=== PATIENT | male | born 1950 | race Caucasian/White ===

== ENCOUNTER 2018-11-19 10:09 | Emergency (ER) | payer MEDICARE, SELFPAY ==
[2018-11-19 10:11] VITALS: BP 146/89; PULSE 91; RESP 17; TEMP 36.7; O2SAT 95; BMI 38.5
[2018-11-19] MEDS: Diphth,Pertuss(Acell),Tet Vac 0.5 ML Vial IM (10:45)
--- NOTE | 2018-11-19 10:57 | ED.VISSUMM ---
- ER Visit Summary Date of Service: 11/19/18 Chief Complaint: Hand laceration History of Present Illness: The patient is a 68 M who presents with with a laceration to his left hand that occurred today. Patient states he was using a cutting wheel when it kicked back and cut his left hand in the first webspace. Patient states his last tetanus was more than 10 years ago. Patient admits to a mild burning over the area. Patient denies any paresthesias or weakness. Patient denies any other injuries. Physical Examination: Vital signs are stable. Patient is afebrile. Patient is in no acute distress. Skin is warm and dry. There is a 2.5 cm curvilinear laceration over the webspace of the first digit near the distal first metacarpal. There is moderate gapping of the wound margins. There are no foreign bodies noted. There is mild bleeding noted. Strength is 5/5 in flexion and extension of the MP and IP joints of the thumb as well as the MP, PIP, and DIP joints of the index finger. There are no sensory deficits noted. Capillary refill is less than 2 seconds in all digits. Emergency Department Course and Treatment: Patient was given a tetanus booster. The wound was cleaned and irrigated with copious amounts of normal saline. The wound was anesthetized 1% plain lidocaine locally. The wound was closed with 5 simple interrupted #4-0 nylon sutures under sterile technique. Bacitracin dressing was applied. Patient tolerated procedure well. Patient was instructed to follow-up with his primary care physician in 5 to 7 days for wound recheck and suture removal. Patient understood and was agreeable with the plan. All questions were answered. Disposition: Discharge home Impression: Left hand laceration This note was generated with [employer] dictation software. It may contain incorrect words, spelling, and punctuation that were not noted in review of the chart prior to signing ED Disposition - Plan for ED Patient: Disposition: Home or Assisted Living Diagnosis: Laceration of left hand Instructions: LACERATION, Extrem (Suture, Staple or Tape) Referrals: Scotty Spaulding MD [Primary Care Provider] - 7 Days for suture removal
== END 2018-11-19 11:13 | disposition home or self-care (01) ==
PROVIDERS: Emergency Provider Emergency Medicine; Family Provider Family Medicine; PCP Family Medicine
DX: S61.412A Laceration without foreign body of left hand, initial encounter (principal); W26.8XXA Contact with other sharp object(s), not elsewhere classified, initial encounter; Y93.89 Activity, other specified; I10 Essential (primary) hypertension; K21.9 Gastro-esophageal reflux disease without esophagitis; N40.0 Benign prostatic hyperplasia without lower urinary tract symptoms; M19.90 Unspecified osteoarthritis, unspecified site; Z79.899 Other long term (current) drug therapy
CPT/HCPCS: 12001; 90471; 90715; 99284; A4216

== ENCOUNTER 2018-11-28 11:34 | Emergency (ER) | payer MEDICARE, SELFPAY ==
[2018-11-28 11:35] VITALS: BP 136/78; PULSE 97; RESP 20; TEMP 36.6; O2SAT 97; BMI 38.5
--- NOTE | 2018-11-28 12:50 | ED.DCSUM_ITS ---
History of Present Illness Chief Complaint: Laceration Informant: Patient Onset: Today Current Severity: Mild Narrative: Laceration involving the left elbow region that occurred when he brushed up against a piece of metal, he has no numbness weakness paresthesias or loss of function his tetanus status is up-to-date he had a recent laceration a week ago involving the left hand region is healing well no other complaints Past Medical History - Allergies and Home Meds Allergies/Adverse Reactions: Allergies iodine Allergy (Verified 11/28/18 11:37) Anaphylaxis aspirin Adverse Reaction (Verified 11/28/18 11:37) Nausea/Vom/Diarrhea PEES BLOOD Primary Care Physician: Scotty Spaulding MD [Primary Care Provider] - Past Medical History: - Smoking Status: Never smoker Review of Systems ROS: - Unremarkable except as above General: Reports: - - The laceration to the left elbow region only. Denies: Chills, Fever, Sweats Eyes: Denies: Visual changes - bilaterally, Diplopia ENT: Denies: Rhinorrhea, Sore throat Cardiovascular: Denies: Chest pain, Palpitations Respiratory: Denies: Dyspnea, Cough, Dyspnea on exertion Gastrointestinal: Denies: Abdominal pain, Nausea, Vomiting, Diarrhea, Melena, Hematochezia Genitourinary: Denies: Dysuria, Hematuria, Frequency Musculoskeletal: Denies: Back pain, Extremity Pain Skin: Denies: Rash, Wounds Neurological: Denies: Headache, Weakness, Numbness Physical Exam Vital Signs/Narrative: Vital Signs Temp Pulse Resp BP Pulse Ox 11/28/18 11:35 98 F 97 20 H 136/78 H 97 General: Well nourished, Well developed, No Acute Distress Head: Normocephalic, Atraumatic Eyes: Perrl, EOMI ENT: Moist mucous membranes, No rhinorrhea Neck: Supple, Nontender Cardiovascular: Regular rate, Regular rhythm, No murmurs Respiratory: No distress, CTA bilaterally, Chest nontender Abdomen: Soft, Nontender, Nondistended, Normal bowel sounds Back: Nontender, Normal Inspection Extremities: Nontender, No edema, - - He has a very linear laceration over the lateral surface left elbow region, he has full range of motion of the elbow to flexion extension pronation supination the distal wrist and hand exam upper extremity exam shoulder exam unremarkable the wound margins here are very well approximated there is no signs of foreign body the patient denies any poss ibility of foreign body, we discussed obtaining an x-ray and he declined that we discussed wound care closure options he agreed with medical glue the area was sterilely prepped and closed with medical glue with good results he was instructed on wound care Skin: Normal color, No rash Neurological: Alert, Oriented x3, Cranial nerves II-XII grossly intact, Normal Strength, Normal Sensation Psychological: Normal affect, Normal Mood Diagnostic/Tx/Re-eval - Medical Decision Making See the above, Home stable Final impression 3 cm left elbow region laceration closed with medical glue ED Disposition - Plan for ED Patient: Diagnosis: Laceration Instructions: LACERATION, Extremity (Skin Glue) Referrals: Scotty Spaulding MD [Primary Care Provider] -
== END 2018-11-28 13:01 | disposition home or self-care (01) ==
LOC: ED 12:15
PROVIDERS: Emergency Provider Emergency Medicine; Family Provider Family Medicine; PCP Family Medicine
DX: S51.012A Laceration without foreign body of left elbow, initial encounter (principal); W26.8XXA Contact with other sharp object(s), not elsewhere classified, initial encounter; Y93.9 Activity, unspecified; Y92.9 Unspecified place or not applicable
CPT/HCPCS: 12002; 99282

== ENCOUNTER → 2019-01-01 07:42 | Outpatient (CLI) | payer MEDICARE, SELFPAY ==
--- NOTE | 2019-01-01 10:01 | NEURO_ITS ---
NCS and/or EMG Patient Report Ordering Doctor: Scotty Spaulding DATE OF SERVICE: 01/01/19 This is a left upper extremity nerve conduction study performed on this 68-year-old male with a history of numbness in both hands for 1 year. The patient is healthy without a history of diabetes. Left upper extremity sensory motor nerve conduction studies performed demonstrating severe prolongation of the median motor distal latency with mild reduction of amplitude and moderate to severe reduction of conduction velocity. The median sensory response is absent. The ulnar motor and sensory and radial sensory response is normal. The median F wave latency is prolonged. Impression: Abnormal nerve conduction study of left upper extremity consistent with severe carpal tunnel syndrome. Dictated using [employer] software, not proofread
== END ==
PROVIDERS: Family Provider Family Medicine; PCP Family Medicine; Referring Provider Family Medicine; Visit Provider Family Medicine
DX: R20.0 Anesthesia of skin (principal)
CPT/HCPCS: 95909

== ENCOUNTER 2019-11-20 14:24 | Inpatient (IN) | payer MEDICARE, SELFPAY ==
[2019-11-20] VITALS (7 sets, daily range): BP systolic 130–157; BP diastolic 80–97; PULSE 93–110; RESP 16–26; TEMP 37.4–37.8; O2SAT 94–97; BMI 41.7; BMI 45.3
--- NOTE | 2019-11-20 15:47 | RAD_ITS ---
STUDY: X-RAY CHEST REASON FOR EXAM: Male, 69 years old. Fatigue. Shortness of breath. Fever. TECHNIQUE: Single AP portable view of the chest. COMPARISON: 05/16/2014. FINDINGS: The lungs are hypoexpanded. There is minimal linear atelectasis at the right lung base. There is no demonstrated pleural abnormality. Normal size heart. Normal mediastinum and nadeem. Normal visualized pulmonary arteries. Normal visualized aortic arch and descending thoracic aorta. There are diffuse degenerative changes of the visualized thoracic spine. There is degenerative osteoarthritis of the bilateral shoulders. There is no demonstrated abnormality of the visualized soft tissue structures of the upper abdomen. RAD/Chest 1 View (Portable) IMPRESSION: No major interval change when compared to the prior study. Electronically Signed: Markell Robles DO at 17:04 EDT Tel [phone], Service support ,
--- NOTE | 2019-11-20 15:47 | EKG12_ITS ---
Test Reason : Blood Pressure : / mmHG Vent. Rate : 107 BPM Atrial Rate : 107 BPM P-R Int : 184 ms QRS Dur : 092 ms QT Int : 326 ms P-R-T Axes : 047 -25 059 degrees QTc Int : 435 ms Sinus tachycardia with occasional Premature ventricular complexes Otherwise normal ECG Confirmed by ADAMS GRANADOS, MARIE ([id number]), script editor HARESH CHARLTON ([id number]) on 11/28/2019 11:10:45 A M Referred By: SHAWN Confirmed By:TOD LAMAS MD
--- NOTE | 2019-11-20 16:07 | ED.DCSUM_ITS ---
History of Present Illness Chief Complaint: Shortness of Breath Informant: Patient, Family Narrative: Patient is a 69-year-old male who presents to the ED for generalized weakness and a shaky feeling. His symptoms started yesterday. Denies having this happen before in the past. He did initially have some shortness of breath yesterday but this has since resolved. He also had some right-sided neck pain which also completely resolved. His only complaint that is currently persisting at this time is some urinary frequency. He does have a history of UTIs before in the past. States he does have a history of BPH. He does follow with a urologist. He denies any recent antibiotic use. Denies any vomiting or any diarrhea. He has not had any chest pain throughout this. He denies any cough, cold, congestion. No known sick contacts. He states that he has had some intermittent fevers that have been subjective. He does not describe his shakiness as chills currently. Just feels generally weak. No headache or vision changes. No history of heart attacks or strokes. He does have bilateral peripheral edema which is at its baseline. Past Medical History - Allergies and Home Meds Allergies/Adverse Reactions: Allergies iodine Allergy (Verified 11/20/19 14:25) Anaphylaxis aspirin Adverse Reaction (Verified 11/20/19 14:25) Nausea/Vom/Diarrhea PEES BLOOD Prior records reviewed: Yes Past Medical History: - - Diabetes, hypertension Smoking Status: Never smoker - Family History Maternal Family History: Reports: No pertinent history Paternal Family History: Reports: No pertinent history Review of Systems All systems negative except as indicated General: Reports: Fever, Malaise, Sweats Eyes: Denies: Visual changes - bilaterally, Diplopia ENT: Denies: Rhinorrhea, Sore throat Cardiovascular: Denies: Chest pain, Palpitations Respiratory: Denies: Dyspnea, Cough, Dyspnea on exertion Gastrointestinal: Denies: Abdominal pain, Nausea, Vomiting, Diarrhea, Melena, Hematochezia Genitourinary: Reports: Dysuria, Frequency. Denies: Hematuria Musculoskeletal: Denies: Back pain, Extremity Pain Skin: Denies: Rash, Wounds Neurological: Denies: Headache, Weakness, Numbness Physical Exam Vital Signs/Narrative: Vital Signs Temp Pulse Resp BP Pulse Ox 11/20/19 14:25 100.1 F H 110 H 18 157/97 H 94 Inital Vital Signs reviewed: Yes General: Well nourished, Well developed, No Acute Distress Head: Normocephalic, Atraumatic Eyes: Perrl, EOMI ENT: Moist mucous membranes, No rhinorrhea Neck: Supple, Nontender Cardiovascular: Regular rhythm, No murmurs, Tachycardia Respiratory: No distress, CTA bilaterally, Chest nontender Abdomen: Soft, Nontender, Nondistended, Normal bowel sounds Back: Nontender, Normal Inspection. Negative for: CVA tenderness Extremities: Nontender, Edema - 2+ pitting edema bilaterally. Negative for: Niko f Tenderness Skin: Normal color, No rash Neurological: Alert, Oriented x3, Cranial nerves II-XII grossly intact, Normal Strength, Normal Sensation Psychological: Normal affect, Normal Mood Diagnostic/Tx/Re-eval - EKG Initial EKG Interpretation: - - Rate of 107 bpm in sinus tachycardia. Normal intervals. Left axis deviation. No ST elevations or depressions appreciated. PVCs present. No T wave abnormalities. - Medical Decision Making Patient presents to the ED for generalized weakness, shakiness. On arrival to the ED has low-grade fever. He is mildly tachycardic. Only infectious symptom at this time is complaining of some dysuria and urinary frequency. Basic lab work being obtained. Started on IV fluids and given Tylenol. He does have elevated white blood cell count. With the tachycardia and low- grade fever we will treat him as sepsis. Will be cautious with IV fluids though given the fact he has CHF. He is started on Rocephin. Blood cultures and urine culture are sent. Will bring to the hospital for further evaluation and management. He otherwise has been stable throughout ED stay. He understands and is agreeable with this plan. ED Disposition - Plan for ED Patient: Disposition: Acute Care Hospital [facility] Diagnosis: Sepsis, Urinary tract infection
[2019-11-20 16:20] LABS: Absolute Lymphocyte Count 1.04 X10^3/uL (0.83-4.51); Absolute Neutrophil Count 14.8 X10^3/uL (2.0-7.7); Basophil# 0.05 X10^3/uL; Basophil% 0.3 % (0-1); Hematocrit 46.2 % (40-54); Lymphocyte # 1.04 X10^3/ul (4.0); Mean Corp Hgb Conc 34.6 g/dL (32-36); Mean Corpuscular Hgb 31.2 pg (27.0-32.0); Mean Corpuscular Volume 90.1 fL (80-94); Mean Platelet Vol. 9.9 fl (6.2-12.0); Monocyte# 1.19 X10^3/uL; Monocyte% 6.9 % (0-10); NRBC Flagged by Analyzer 0 % (0-5); Neutrophil # 14.82 X10^3/uL (2.7-7.7); Neutrophil % 86.2 % (47-70); Platelet Count 215 K/mm3 (150-450); RBC Distribution Width CV 12.1 % (11.6-14.6); RBC Distribution Width SD 39.6 fl (35.1-43.9); Red Blood Count 5.13 M/mm3 (4.6-6.2); White Blood Count 17.2 K/mm3 (4.4-11.0)
[2019-11-20] MEDS: Acetaminophen 325 MG Tablet 650 MG PO ×2 (16:32→22:51)
[2019-11-20 16:33] LABS: Anion Gap 7 (5-15); BUN 14 mg/dL (7-18); Chloride 101 mmol/L (98-107); Creatinine, Serum 1.17 mg/dL (0.70-1.30); EST Glomerular Filtration Rate 65 mL/min (>60); Est Glom Filt Rate - Afr Amer 79 mL/min (>60); Estimated Creatinine Clearance 67.33 ml/min; Glucose 255 mg/dL (74-106); Magnesium 1.9 mg/dL (1.6-2.6); Potassium 3.3 mmol/L (3.5-5.1); Sodium Level 137 mmol/L (136-145)
[2019-11-20 16:36] LABS: Bacteria 0 SEEN /hpf (None Seen); Mucous, Urine 0 SEEN /hpf (<or=2+)
[2019-11-20 16:43] LABS: Color, Urine Yellow (Yellow); Glucose, Dipstick 250 mg/dl (Normal); Ketone-Dipstick 15 mg/dl (Negative); Leukocyte Esterase-Dipstick 500 /ul (Negative); Nitrite-Dipstick Negative (Negative); Occult Blood-Urine 250 /ul (Negative); Protein-Dipstick 100 mg/dl (Negative); Specific Gravity, Urine 1.015 (1.002-1.030); Urine Bilirubin Dipstick Negative (Negative); Urine Clarity Cloudy (Clear); Urine Urobilinogen 1 mg/dl (Normal)
[2019-11-20 16:57] LABS: Lactic Acid 2.5 mmol/L (0.4-1.9)
[2019-11-20 16:58] LABS: Red Blood Cells-Urine 50-100 SEEN /hpf (0-5); Squamous Epithelial Cells - UA 0-5 SEEN /hpf (0-5); White Blood Cells >100 SEEN /hpf (0-5)
[2019-11-20 16:59] LABS: Amorphous Sediment 1+ URATE
--- NOTE | 2019-11-20 17:36 | HP.PCM_ITS ---
Problem List (1) Type 2 diabetes mellitus Status: Chronic (2) Hypertension Status: Chronic (3) Benign prostatic hyperplasia Status: Chronic (4) Sepsis Status: Acute (5) Urinary tract infection Status: Acute History of Present Illness Date of Admission: 11/20/19 Chief Complaint: Fever, weakness, chills. The patient is a 69 year old M with past medical history as mentioned above presented to the emergency room because of fever, chills and weakness. Symptoms started yesterday with mainly chills, subjective fever, associated with profound weakness and without other associated symptoms. Patient reported intermittent back pain but that has been chronic and going on for some time. He reported associated frequency, no dysuria. He denied chest pain or shortness of breath. He denied cough, sputum production, sore throat, sinus nasal congestion. He had a history of type 2 diabetes mellitus that was diagnosed recently and currently he is on oral hypoglycemic drugs. He rested hypertension which has been under control with Norvasc. He has history of benign prostatic hypertrophy and he is not sure what medication he is on. In the emergency department, patient had a spike of low-grade fever, was tachycardic, tachypneic, blood pressure slightly elevated, pulse ox was 96% on room air. Routine blood work was remarkable for leukocytosis, potassium 3.3, lactic acid was 2.5. EKG revealed sinus tachycardia with PVCs. Troponin was negative. Urinalysis revealed cloudy urine, negative for nitrite, there was 500 leukocyte esterase, there was more than 100 WBCs and no bacteria seen. Chest x-ray showed no acute infiltrate or consolidation. He is being admitted for sepsis due to acute cystitis. Past Medical History Past Medical History (Chronic Problems): Chronic Problems Type 2 diabetes mellitus (Chronic) Hypertension (Chronic) Benign prostatic hyperplasia (Chronic) Allergies iodine Allergy (Verified 11/20/19 14:25) Anaphylaxis aspirin Adverse Reaction (Verified 11/20/19 14:25) Nausea/Vom/Diarrhea PEES BLOOD Home Medications: Ambulatory Orders Medication Instructions Recorded Cholecalciferol (VIT D3) [Vitamin 2,000 unit PO DAILY 04/19/14 D3] Potassium Chloride [K-Dur] 40 meq PO BID 04/19/14 Amlodipine [Norvasc] 10 mg PO DAILY 11/20/19 Cyclobenzaprine HCl 5 mg PO Q8 11/20/19 Gabapentin [Neurontin] 300 mg PO BID 11/20/19 Hydrochlorothiazide [Hctz] 25 mg PO DAILY 11/20/19 Oxycodone HCl/Acetaminophen 1 tab PO BID PRN 11/20/19 [Percocet 5/325] Pantoprazole Sodium [Protonix] 40 mg PO DAILY 11/20/19 Surgical History: appendectomy, total knee arthroplasty Psychiatric History: No pertinent psych hx Lives: Spouse/ Significant Other Smoking Status: Never smoker Alcohol: None Drugs: None - *Family History Maternal History Items: No pertinent history Paternal History Items: No pertinent history Review of Systems Constitutional: Reports: Anorexia, Chills, Fever, Weakness Eyes: Denies: Blurred vision, Double vision, Drainage, Redness HEENT: Denies: Difficulty Hearing, Ear Pain, Nasal Congestion, Sore Throat Cardiovascular: Denies: Chest Pain, Chest Pressure, Chest Tightness, Edema, Heaviness, Light Headedness, Palpitations, Syncope Respiratory: Denies: Cough, Pleuritic Pain, Shortness of Breath, Sputum production, Wheezing Gastrointestinal: Denies: Abdominal Pain, Constipation, Diarrhea, Nausea, Vomiting Genitourinary: Reports: Frequency, Urgency. Denies: Dysuria, Hematuria Musculoskeletal: Reports: Back Pain. Denies: Arm Pain, Foot Pain Skin: Denies: Dryness, Rash Neurological: Denies: Balance problems, Double vision, Change in Speech, Slurred speech, Confusion, Headaches, Incoordination, Numbness Psychiatric: Denies: Anxiety, Depression Endocrine: Denies: Change in Body Habitus, Polydipsia, Polyuria VTE Information - Inpt Only VTE Present on Admission: No VTE Mechan Device Prophylaxis: None VTE Pharm Prophylaxis ordered?: Yes Patient Problems: Active and Suspected Problems Sepsis (Acute) Urinary tract infection (Acute) - Physical Exam Vitals/I&O's: Vital Signs Temp Pulse Resp BP Pulse Ox 99.4 F H 104 H 19 H 135/88 H 96 11/20/19 17:32 11/20/19 17:32 11/20/19 17:32 11/20/19 17:32 11/20/19 17:32 Oxygen Delivery Method Room Air Weight: 325 lb Body Mass Index (BMI) 41.7 General: Alert, Oriented x3, Cooperative, No apparent distress HEENT: Atraumatic, PERRLA, EOMI, Normocephalic Oral: Moist Mucosa, No Gingival or Mucosal Lesions/ Ulcerations Neck: Supple, No JVD, Negative Carotid Bruits, Trachea Midline, Thyroid Normal Size and Texture Lungs: Clear to auscultation, Normal air movement, No rhonchi, No wheeze, No rales, Diminished Cardiovascular: Regular rate, Regular Rhythm, Normal S1, Normal S2, PMI Normal, Tachycardic Abdomen: Bowel Sounds Present, Soft, Non Tender, Non-Distended, No Hepato- splenomegaly, Obese Extremities: No clubbing, No cyanosis, Edema Skin: No rashes, No breakdown Lymphatic: No Cervical, Supraclavicular, or Inguinal Adenopathy Neurological: Cranial nerves II-XII grossly intact, Motor Exam 5/5 strength throughout Psych/Mental Status: Normal Affect, Appropriate, Alert and oriented to time, place, person, mood and affect Laboratory Results 11/20/19 16:05: WBC 17.2 H, RBC 5.13, Hgb 16.0, Hct 46.2, MCV 90.1, MCH 31.2, MCHC 34.6, RDW Std Deviation 39.6, RDW Coeff of Tish 12.1, Plt Count 215, MPV 9.9, Immature Gran % (Auto) 0.600, Neut % (Auto) 86.2 H, Lymph % (Auto) 6.0 L, [place] % (Auto) 6.9, Eos % (Auto) 0.0, Baso % (Auto) 0.3, Absolute Neuts (auto) 14.8 H, Absolute Lymphs (auto) 1.04, Nucleated RBC % 0 11/20/19 16:05: Sodium 137, Potassium 3.3 L, Chloride 101, Carbon Dioxide 29.0, Anion Gap 7, BUN 14, Creatinine 1.17, Estim Creat Clear Calc 67.33, Est GFR (MDRD) Af Amer 79, Est GFR (MDRD) Non-Af 65, BUN/Creatinine Ratio 12.0, Glucose 255 H, Calcium 9.0, Magnesium 1.9, Troponin I < 0.015 11/20/19 16:05: Lactic Acid 2.5 H* 11/20/19 16:10: Urine Color Yellow, Urine Clarity Cloudy, Urine pH 6.0, Ur Specific [place] 1.015, Urine Protein 100 H, Urine Glucose (UA) 250 H, Urine Ketones 15 H, Urine Occult Blood 250 H, Urine Nitrite Negative, Urine Bilirubin Negative, Urine Urobilinogen 1 H, Ur Leukocyte Esterase 500 H, Urine RBC 50-100 SEEN, Urine WBC >100 SEEN, Ur Squamous Epith Cells 0-5 SEEN, Amorphous Sediment 1+ URATE, Urine Bacteria 0 SEEN, Urine Mucus 0 SEEN Clinical Impression(s) from Imaging Studies Chest X-Ray 11/20/19 15:47 IMPRESSION: No major interval change when compared to the prior study. Electronically Signed: Markell RoblesDO at 17:04 EDT Tel [phone], Service support , Current Medications Sodium Chloride () 500 mls @ 999 mls/hr IV .Q31M KINZA Stop: 11/20/19 17:45 Last Admin: 11/20/19 17:28 Dose: 999 mls/hr Documented by: Assessment/Plan All Active Problems Sepsis (Acute) Urinary tract infection (Acute) This is a 69 years old male patient presented to the emergency room because of fever, chills and weakness as well as frequency, found to have sepsis secondary to acute cystitis and he is being admitted for treatment. #1 sepsis/acute cystitis: Urine is reviewed. Patient is having low-grade fever, tachycardic, blood pressure stable. Lactic acid was elevated. [facility], IV fluids, blood culture, urine culture, start IV Rocephin, Tylenol PRN, Zofran PRN, repeat CBC and BMP tomorrow morning, PT OT evaluation and treatment. #2 hypokalemia: It is probably due to HCTZ. Plan to replace potassium with p.o. potassium chloride, repeat BMP tomorrow morning. #3 hypertension: Blood pressure stable, continue Norvasc, HCTZ. #4 benign prostatic hypertrophy: Patient did mention that he has prostatic enlargement. He is not on any medication. #5 type 2 diabetes mellitus: Recent diagnosis according to the patient's . Blood sugar is 255 mg/dL upon admission. Plan: Accu-Cheks, insulin sliding scale, check hemoglobin A1c, continue home medications when home medications updated. #6 DVT prophylaxis: Subcu Lovenox. This note was generated with [employer] dictation software. It may contain incorrect words, spelling, and punctuation that were not noted in checking the note before signing. Inpatient E&M: 99041 Init Hosp L3
--- NOTE | 2019-11-20 17:45 | NURSING ---
316 ACUTE CYSTITIS, SEPSIS ASHELFAH
[2019-11-20 19:08] LABS: Hemoglobin A1c 9.5 % (3.8-5.6)
[2019-11-20] MEDS: 0.9% Normal Saline 1,000 ML 100 ML IV (19:19)
[2019-11-20 20:10] LABS: Reflex Lactate? Y
[2019-11-20] MEDS: oxyCODONE 5 MG Tablet PO (20:15)
[2019-11-20] MEDS: cycloBENZAPRine HCl 5 MG TABLET PO (22:52)
[2019-11-20] MEDS: Insulin Lispro 100 UNIT/ML INSULN.PEN SC (23:00)
[2019-11-20 23:01] LABS: Bedside Glucose 367 mg/dL (70-110)
[2019-11-20] MEDS: Nystatin Powder 15gm Bottle 1 APPLIC TOPICAL (23:15)
[2019-11-21] VITALS (13 sets, daily range): BP systolic 139–153; BP diastolic 80–96; PULSE 89–103; RESP 16–18; TEMP 36.6–37.3; O2SAT 88–97
[2019-11-21] MEDS: 0.9% Normal Saline 1,000 ML 100 ML IV ×2 (04:48→15:15)
[2019-11-21] MEDS: Acetaminophen 325 MG Tablet 650 MG PO (04:48)
[2019-11-21] MEDS: cycloBENZAPRine HCl 5 MG TABLET PO ×3 (04:49→22:44)
[2019-11-21 06:32] LABS: Absolute Lymphocyte Count 1.08 X10^3/uL (0.83-4.51); Absolute Neutrophil Count 12.3 X10^3/uL (2.0-7.7); Basophil# 0.04 X10^3/uL; Basophil% 0.3 % (0-1); Eosinophil# 0.02 X10^3/uL; Eosinophils% 0.1 % (0-5); Hematocrit 42.8 % (40-54); Hemoglobin 14.2 g/dL (13.0-16.5); Lymphocyte # 1.08 X10^3/ul (4.0); Lymphocyte % 7.6 % (19-41); Mean Corp Hgb Conc 33.2 g/dL (32-36); Mean Corpuscular Hgb 30.4 pg (27.0-32.0); Mean Corpuscular Volume 91.6 fL (80-94); Mean Platelet Vol. 9.8 fl (6.2-12.0); Monocyte# 0.79 X10^3/uL; Monocyte% 5.5 % (0-10); NRBC Flagged by Analyzer 0 % (0-5); Neutrophil # 12.27 X10^3/uL (2.7-7.7); Platelet Count 182 K/mm3 (150-450); RBC Distribution Width CV 12.5 % (11.6-14.6); RBC Distribution Width SD 41.2 fl (35.1-43.9); Red Blood Count 4.67 M/mm3 (4.6-6.2); White Blood Count 14.3 K/mm3 (4.4-11.0)
[2019-11-21] MEDS: Insulin Lispro 100 UNIT/ML INSULN.PEN SC ×4 (06:39→22:47)
[2019-11-21 06:55] LABS: Anion Gap 5 (5-15); BUN 10 mg/dL (7-18); BUN/Creat Ratio 10.6 RATIO (10-20); Calcium,Total 8.2 mg/dL (8.5-10.1); Chloride 102 mmol/L (98-107); Creatinine, Serum 0.94 mg/dL (0.70-1.30); EST Glomerular Filtration Rate 84 mL/min (>60); Est Glom Filt Rate - Afr Amer 101 mL/min (>60); Glucose 206 mg/dL (74-106); Potassium 3.2 mmol/L (3.5-5.1); Sodium Level 134 mmol/L (136-145)
[2019-11-21 06:59] LABS: Lactic Acid 1.4 mmol/L (0.4-1.9)
[2019-11-21 07:00] LABS: Bedside Glucose 206 mg/dL (70-110)
[2019-11-21] MEDS: Gabapentin 300 MG Capsule PO ×2 (08:55→16:12)
[2019-11-21] MEDS: amLODIPine 10 MG Tablet PO (08:55)
[2019-11-21] MEDS: hydroCHLOROthiazide 25 MG Tablet PO (08:55)
[2019-11-21] MEDS: Enoxaparin 40 MG/0.4 ML Syringe SC (08:55)
[2019-11-21] MEDS: Pantoprazole Sodium 40 MG Tablet PO (08:55)
[2019-11-21] MEDS: Glucerna Shake 120 ML LIQUID PO ×3 (08:57→16:13)
--- NOTE | 2019-11-21 10:18 | PCM.PN.HOSP ---
Patient Problems: Active and Suspected Problems Sepsis (Acute) Urinary tract infection (Acute) Subjective: Doing well, no issues overnight. Feels better than when he came in. Vitals/I&O's: Vital Signs Temp Pulse Resp BP Pulse Ox 99.1 F 94 16 139/88 H 97 11/21/19 07:57 11/21/19 08:31 11/21/19 07:57 11/21/19 07:57 11/21/19 07:57 Oxygen Delivery Method Room Air Weight: 352 lb 11.834 oz Body Mass Index (BMI) 45.3 Intake and Output for Last 24 Hours 11/19/19 11/20/19 11/21/19 23:59 23:59 23:59 Intake Total 1850 / 1850 2183.33 / 2183.33 Output Total 300 / 300 500 / 500 Balance 1550 / 1550 1683.33 / 1683.33 General: Alert, Oriented x3, Cooperative, No apparent distress HEENT: Atraumatic, PERRLA, EOMI, Normocephalic Oral: Moist Mucosa Neck: Supple, No JVD Lungs: Clear to auscultation, Normal air movement, No rhonchi, No wheeze, No rales, Diminished Cardiovascular: Regular rate, Regular Rhythm, Normal S1, Normal S2, No murmurs Abdomen: Soft, Non Tender, Non-Distended, No Hepato-splenomegaly Extremities: No edema, Capillary Refill Less than 3 Seconds Skin: No rashes, No breakdown Neurological: Neuro grossly intact, Sensory exam intact to light touch and pain Psych/Mental Status: Normal Affect, Appropriate Laboratory Results 11/20/19 16:05: WBC 17.2 H, RBC 5.13, Hgb 16.0, Hct 46.2, MCV 90.1, MCH 31.2, MCHC 34.6, RDW Std Deviation 39.6, RDW Coeff of Tish 12.1, Plt Count 215, MPV 9.9, Immature Gran % (Auto) 0.600, Neut % (Auto) 86.2 H, Lymph % (Auto) 6.0 L, Stearns % (Auto) 6.9, Eos % (Auto) 0.0, Baso % (Auto) 0.3, Absolute Neuts (auto) 14.8 H, Absolute Lymphs (auto) 1.04, Nucleated RBC % 0 11/20/19 16:05: Sodium 137, Potassium 3.3 L, Chloride 101, Carbon Dioxide 29.0, Anion Gap 7, BUN 14, Creatinine 1.17, Estim Creat Clear Calc 67.33, Est GFR (MDRD) Af Amer 79, Est GFR (MDRD) Non-Af 65, BUN/Creatinine Ratio 12.0, Glucose 255 H, Calcium 9.0, Magnesium 1.9, Troponin I < 0.015 11/20/19 16:05: Lactic Acid 2.5 H* 11/20/19 16:05: Hemoglobin A1c 9.5 H 11/20/19 16:10: Urine Color Yellow, Urine Clarity Cloudy, Urine pH 6.0, Ur Specific [place] 1.015, Urine Protein 100 H, Urine Glucose (UA) 250 H, Urine Ketones 15 H, Urine Occult Blood 250 H, Urine Nitrite Negative, Urine Bilirubin Negative, Urine Urobilinogen 1 H, Ur Leukocyte Esterase 500 H, Urine RBC 50-100 SEEN, Urine WBC >100 SEEN, Ur Squamous Epith Cells 0-5 SEEN, Amorphous Sediment 1+ URATE, Urine Bacteria 0 SEEN, Urine Mucus 0 SEEN 11/20/19 20:33: Lactic Acid 3.0 H* 11/20/19 22:56: POC Glucose 367 H 11/21/19 06:17: Sodium 134 L, Potassium 3.2 L, Chloride 102, Carbon Dioxide 27.0, Anion Gap 5, BUN 10, Creatinine 0.94, Estim Creat Clear Calc 83.80, Est GFR (MDRD) Af Amer 101, Est GFR (MDRD) Non-Af 84, BUN/Creatinine Ratio 10.6, Glucose 206 H, Calcium 8.2 L 11/21/19 06:17: WBC 14.3 H, RBC 4.67, Hgb 14.2, Hct 42.8, MCV 91.6, MCH 30.4, MCHC 33.2, RDW Std Deviation 41.2, RDW Coeff of Tish 12.5, Plt Count 182, MPV 9.8, Immature Gran % (Auto) 0.500, Neut % (Auto) 86.0 H, Lymph % (Auto) 7.6 L, Stearns % (Auto) 5.5, Eos % (Auto) 0.1, Baso % (Auto) 0.3, Absolute Neuts (auto) 12.3 H, Absolute Lymphs (auto) 1.08, Nucleated RBC % 0 11/21/19 06:17: Lactic Acid 1.4 11/21/19 06:37: POC Glucose 206 H Current Medications Acetaminophen (Tylenol) 650 mg PO Q6H PRN PRN PRN Reason: HEADACHE/FEVER (T>100F) Last Admin: 11/21/19 04:48 Dose: 650 mg Documented by: Amlodipine Besylate (Norvasc) 10 mg PO DAILY [facility] Last Admin: 11/21/19 08:55 Dose: 10 mg Documented by: Cyclobenzaprine HCl (Cyclobenzaprine Hcl) 5 mg PO Q8 [facility] Last Admin: 11/21/19 04:49 Dose: 5 mg Documented by: Enoxaparin Sodium (Lovenox) 40 mg SC DAILY [facility] Last Admin: 11/21/19 08:55 Dose: 40 mg Documented by: Gabapentin (Neurontin) 300 mg PO BIDCM [facility] Last Admin: 11/21/19 08:55 Dose: 300 mg Documented by: Hydrochlorothiazide (Hctz) 25 mg PO DAILY [facility] Last Admin: 11/21/19 08:55 Dose: 25 mg Documented by: Sodium Chloride () 1,000 mls @ 100 mls/hr IV .Q10H [facility] Last Infusion: 11/21/19 10:09 Dose: 0 mls/hr Documented by: Ceftriaxone Sodium 2 gm/ (Sodium Chloride) 50 mls @ 100 mls/hr IV Q24 [facility] Last Admin: 11/21/19 10:09 Dose: 100 mls/hr Documented by: Insulin Human Lispro (Humalog [place] (Bkc)) 0 unit SC ACHS [facility]; Protocol Last Admin: 11/21/19 06:39 Dose: 2 units Documented by: Nutritional Formula (Lactose Free) (Glucerna Shake) 120 ml PO TIDCM [facility] Last Admin: 11/21/19 08:57 Dose: 120 ml Documented by: Nystatin (Mycostatin Powder) 1 applic TOPICAL BID [facility]; Protocol Last Admin: 11/20/19 23:15 Dose: 1 applicatio Documented by: Ondansetron HCl (Zofran) 4 mg IV Q6H PRN PRN PRN Reason: NAUSEA/VOMITING Oxycodone HCl (Oxyir) 5 mg PO BID PRN PRN Reason: Pain Score 6-10/10 Last Admin: 11/20/19 20:15 Dose: 5 mg Documented by: Pantoprazole Sodium (Protonix) 40 mg PO DAILY [facility] Last Admin: 11/21/19 08:55 Dose: 40 mg Documented by: Potassium Chloride (K-Dur) 40 meq PO BID [facility] Last Admin: 11/21/19 08:56 Dose: 40 meq Documented by: Sodium Chloride () 10 - 40 ml IV UD PRN PRN Reason: SALINE FLUSH STROKE Vital Signs/Narrative: Vital Signs Temp Pulse Resp BP Pulse Ox 11/21/19 08:31 94 11/21/19 07:57 99.1 F 96 16 139/88 H 97 11/21/19 07:20 95 Medical Necessity - Tobacco Use Smoking Status: Former smoker Tobacco Use: Cigarettes Assessment/Plan All Active Problems Sepsis (Acute) Urinary tract infection (Acute) 1. Sepsis secondary to acute UTI -Feels much better, continue with Rocephin -Urine culture is pending -Leukocytosis is improved, afebrile -Continue with IV fluids at 100 2. HTN/HLD/morbid obesity/hypokalemia -Lifestyle modifications discussed, BMI is 45 -Is stable -Continue with his Norvasc as hydrochlorothiazide -He is on potassium replacement 40 mEq p.o. twice daily, will continue. 3. DM 2 -Hold metformin, continue with sliding scale insulin -Accu-Cheks AC at bedtime DVT: Lovenox Inpatient E&M: 12846 Subs Hosp L2
--- NOTE | 2019-11-21 11:15 | CASEMGMT ---
RN CM Face to Face with patient for initial transition planning/care coordination assessment. RN CM introduced self and role at [facility]. Patient sitting in chair, alert and oriented, at bedside. Patient willing to participate in assessment and is able to answer all questions appropriately. Care providers, pharmacy, and demographics verified. Patient wishes to discharge home, denies need for home health at this time. Patient states he has no further needs or concerns at this time. CM to follow for discharge planning needs that may arise. PCP: Chelly Specialists: Jose C, oncologist; Urologist at [facility] in [place] Preferred Pharmacy: [facility] Insurance: [employer] Prescription Benefit: ues Living Will/HPOA: yes, Venus Gates LNOK: Living Arrangements: Patient lives with in 1 story home with ramp to enter the home. Patient is independent at home Transportation: self, DME/HHC: Patient states he has cane, walker, shower chair, and grab bars at home. Patient denies HHC. Disposition Plan: Patient to discharge home with family support and follow-up plans in place. Allison BERNSTEIN, RN, CM
[2019-11-21 11:30] LABS: Bedside Glucose 298 mg/dL (70-110)
[2019-11-21 16:21] LABS: Bedside Glucose 251 mg/dL (70-110)
[2019-11-21] MEDS: Nystatin Powder 15gm Bottle 1 APPLIC TOPICAL (22:47)
[2019-11-21 22:56] LABS: Bedside Glucose 199 mg/dL (70-110)
[2019-11-22] MEDS: 0.9% Normal Saline 1,000 ML 100 ML IV (00:10)
[2019-11-22 02:34] VITALS: BP 129/83; PULSE 82; RESP 18; TEMP 37.1; O2SAT 99
[2019-11-22 03:50] VITALS: PULSE 76
[2019-11-22] MEDS: cycloBENZAPRine HCl 5 MG TABLET PO (05:11)
[2019-11-22] MEDS: Insulin Lispro 100 UNIT/ML INSULN.PEN SC (06:24)
[2019-11-22 06:30] LABS: Bedside Glucose 184 mg/dL (70-110)
[2019-11-22 07:30] LABS: Absolute Lymphocyte Count 1.21 X10^3/uL (0.83-4.51); Absolute Neutrophil Count 5.8 X10^3/uL (2.0-7.7); Basophil# 0.03 X10^3/uL; Basophil% 0.4 % (0-1); Eosinophil# 0.12 X10^3/uL; Eosinophils% 1.5 % (0-5); Hematocrit 42.2 % (40-54); Hemoglobin 13.9 g/dL (13.0-16.5); Lymphocyte # 1.21 X10^3/ul (4.0); Lymphocyte % 15.4 % (19-41); Mean Corp Hgb Conc 32.9 g/dL (32-36); Mean Corpuscular Hgb 30.1 pg (27.0-32.0); Mean Corpuscular Volume 91.3 fL (80-94); Mean Platelet Vol. 9.8 fl (6.2-12.0); Monocyte# 0.67 X10^3/uL; Monocyte% 8.5 % (0-10); NRBC Flagged by Analyzer 0 % (0-5); Neutrophil # 5.78 X10^3/uL (2.7-7.7); Neutrophil % 73.6 % (47-70); Platelet Count 190 K/mm3 (150-450); RBC Distribution Width CV 12.5 % (11.6-14.6); RBC Distribution Width SD 40.9 fl (35.1-43.9); Red Blood Count 4.62 M/mm3 (4.6-6.2); White Blood Count 7.9 K/mm3 (4.4-11.0)
[2019-11-22 07:44] LABS: Anion Gap 5 (5-15); BUN 8 mg/dL (7-18); Calcium,Total 8.2 mg/dL (8.5-10.1); Chloride 102 mmol/L (98-107); Creatinine, Serum 0.89 mg/dL (0.70-1.30); EST Glomerular Filtration Rate 90 mL/min (>60); Est Glom Filt Rate - Afr Amer 109 mL/min (>60); Estimated Creatinine Clearance 88.51 ml/min; Glucose 180 mg/dL (74-106); Potassium 3.2 mmol/L (3.5-5.1); Sodium Level 137 mmol/L (136-145)
[2019-11-22] MEDS: Pantoprazole Sodium 40 MG Tablet PO (08:37)
[2019-11-22] MEDS: amLODIPine 10 MG Tablet PO (08:37)
[2019-11-22] MEDS: Gabapentin 300 MG Capsule PO (08:37)
[2019-11-22] MEDS: Enoxaparin 40 MG/0.4 ML Syringe SC (08:37)
[2019-11-22] MEDS: Nystatin Powder 15gm Bottle 1 APPLIC TOPICAL (08:39)
[2019-11-22] MEDS: hydroCHLOROthiazide 25 MG Tablet PO (08:39)
[2019-11-22] MEDS: Glucerna Shake 120 ML LIQUID PO (08:43)
[2019-11-22 08:45] VITALS: BP 151/94; PULSE 85; RESP 16; TEMP 36.6; O2SAT 97
[2019-11-22 08:50] VITALS: PULSE 82
--- NOTE | 2019-11-22 10:05 | PCM.DC ---
- Discharge Diagnoses Current Active Problems: Current Active and Chronic Problems Type 2 diabetes mellitus (Chronic) Hypertension (Chronic) Benign prostatic hyperplasia (Chronic) Sepsis (Acute) Urinary tract infection (Acute) You will use the following diet at home:: Calorie/Carbohydrate Controlled (specify 1200, 1400, etc) Your food should be the consistency of: Regular Your liquids should be the consistency of: Regular/Thin Discharge Activity: Return to Normal Activity Call your doctor if you observe: Fever of 101 or Higher, Shortness of breath, Dizziness, Fainting spells, Swelling in the ankles, Chest pain, Increased palpitations (irregular heartbeat) Allergies/Adverse Reactions: Allergies iodine Allergy (Verified 11/20/19 14:25) Anaphylaxis aspirin Adverse Reaction (Verified 11/20/19 14:25) Nausea/Vom/Diarrhea PEES BLOOD Medications to take at Discharge Cholecalciferol (VIT D3) [Vitamin D3] 2,000 unit PO DAILY 04/19/14 Potassium Chloride [K-Dur] 40 meq PO BID 04/19/14 Amlodipine [Norvasc] 10 mg PO DAILY 11/20/19 Cyclobenzaprine HCl 5 mg PO Q8 11/20/19 Gabapentin [Neurontin] 300 mg PO BID 11/20/19 Hydrochlorothiazide [Hctz] 25 mg PO DAILY 11/20/19 Oxycodone HCl/Acetaminophen [Percocet 5-325] 1 tab PO BID PRN 11/20/19 Pantoprazole Sodium [Protonix] 40 mg PO DAILY 11/20/19 metFORMIN (XR) [Glucophage Xr] 500 mg PO DAILY 11/21/19 Cefdinir [Omnicef [equiv]] 300 mg PO Q12H #10 cap 11/22/19 The following prescriptions were given: Cefdinir [Omnicef [equiv]] 300 mg PO Q12H #10 cap Transmission Status: Pending to [facility] Primary Care Physician: Scotty Spaulding MD [Primary Care Provider] - Please follow up with your Primary Care Physician in: 3-5 days Test Results: Test results from this visit will be discussed in further detail at your follow-up appointment, if applicable.
--- NOTE | 2019-11-22 10:07 | PCM.DC.SUM ---
Discharge Date and Diagnosis - Problem List Patient Problems: Active and Suspected Problems Sepsis (Acute) Urinary tract infection (Acute) Date of Admission: 11/20/19 Date of Discharge: 11/22/19 - Primary Discharge Diagnosis Acute Problems: Active Problems Sepsis (Acute) Urinary tract infection (Acute) - Secondary Discharge Diagnosis Chronic Problems: Chronic Problems Type 2 diabetes mellitus (Chronic) Hypertension (Chronic) Benign prostatic hyperplasia (Chronic) Hospital Course and Treatment Imaging Results: Clinical Impression(s) from Imaging Studies Chest X-Ray 11/20/19 15:47 IMPRESSION: No major interval change when compared to the prior study. Electronically Signed: Markell RoblesDO at 17:04 EDT Tel [phone], Service support , Consults: None Operations: None Procedures: None Summary of Care Provided: Per HPI: The patient is a 69 year old M with past medical history as mentioned above presented to the emergency room because of fever, chills and weakness. Symptoms started yesterday with mainly chills, subjective fever, associated with profound weakness and without other associated symptoms. Patient reported intermittent back pain but that has been chronic and going on for some time. He reported associated frequency, no dysuria. He denied chest pain or shortness of breath. He denied cough, sputum production, sore throat, sinus nasal congestion. He had a history of type 2 diabetes mellitus that was diagnosed recently and currently he is on oral hypoglycemic drugs. He rested hypertension which has been under control with Norvasc. He has history of benign prostatic hypertrophy and he is not sure what medication he is on. In the emergency department, patient had a spike of low-grade fever, was tachycardic, tachypneic, blood pressure slightly elevated, pulse ox was 96% on room air. Routine blood work was remarkable for leukocytosis, potassium 3.3, lactic acid was 2.5. EKG revealed sinus tachycardia with PVCs. Troponin was negative. Urinalysis revealed cloudy urine, negative for nitrite, there was 500 leukocyte esterase, there was more than 100 WBCs and no bacteria seen. Chest x-ray showed no acute infiltrate or consolidation. He is being admitted for sepsis due to acute cystitis. Hospital Course: 1. Sepsis secondary to acute UTI caused by E. [id number]-old male who is feeling much better the day after admission with initiation of IV antibiotics. His urine culture came back positive for E. coli that was pansensitive. He was transitioned from Rocephin to Omnicef to complete 5 more days as an outpatient. He would like to go home today. I discussed with him the discharge plan and he expressed understanding of the risks and benefits of going home. 2. Hypertension, hyperlipidemia, morbid obesity, and type 2 diabetes are all chronic medical conditions complicating his care. His home medications were continued where appropriate. He will need to follow-up with his primary care doctor as an outpatient for post hospital follow-up. At that time a BMP should be obtained as his potassium was 3.2. He does have twice daily potassium replacement at home and this is likely secondary to his hydrochlorothiazide. Magnesium levels normal. Patient Problems: Active and Suspected Problems Sepsis (Acute) Urinary tract infection (Acute) - Physical Exam Vitals/I&O's: Vital Signs Temp Pulse Resp BP Pulse Ox 97.8 F 82 16 151/94 H 97 11/22/19 08:45 11/22/19 08:50 11/22/19 08:45 11/22/19 08:45 11/22/19 08:45 Oxygen Flow Rate (L/min) 2 Oxygen Delivery Method Room Air Weight: 352 lb 11.834 oz Body Mass Index (BMI) 45.3 Intake and Output for Last 24 Hours 11/20/19 11/21/19 11/22/19 23:59 23:59 23:59 Intake Total 1850 / 1850 3731.66 / 3731.66 3060.00 / 3060.00 Output Total 300 / 300 1450 / 1450 1900 / 1900 Balance 1550 / 1550 2281.66 / 2281.66 1160.00 / 1160.00 General: Alert, Oriented x3, Cooperative, No apparent distress HEENT: Atraumatic, PERRLA, EOMI, Normocephalic Oral: Moist Mucosa Neck: Supple, No JVD Lungs: Clear to auscultation, Normal air movement, No rhonchi, No wheeze, No rales, Diminished Cardiovascular: Regular rate, Regular Rhythm, Normal S1, Normal S2, No murmurs Abdomen: Soft, Non Tender, Non-Distended, No Hepato-splenomegaly Extremities: No edema, Capillary Refill Less than 3 Seconds Skin: No rashes, No breakdown Neurological: Neuro grossly intact, Sensory exam intact to light touch and pain Psych/Mental Status: Normal Affect, Appropriate Microbiology Past 72 Hours 11/20/19 17:30 Urine, Clean Catch Urine Culture - Preliminary Presumptive E. coli Laboratory Results 11/21/19 11:16: POC Glucose 298 H 11/21/19 16:10: POC Glucose 251 H 11/21/19 22:46: POC Glucose 199 H 11/22/19 06:23: POC Glucose 184 H 11/22/19 07:03: WBC 7.9, RBC 4.62, Hgb 13.9, Hct 42.2, MCV 91.3, MCH 30.1, MCHC 32.9, RDW Std Deviation 40.9, RDW Coeff of Tish 12.5, Plt Count 190, MPV 9.8, Immature Gran % (Auto) 0.600, Neut % (Auto) 73.6 H, Lymph % (Auto) 15.4 L, [place] % (Auto) 8.5, Eos % (Auto) 1.5, Baso % (Auto) 0.4, Absolute Neuts (auto) 5.8, Absolute Lymphs (auto) 1.21, Nucleated RBC % 0 11/22/19 07:03: Sodium 137, Potassium 3.2 L, Chloride 102, Carbon Dioxide 30.0, Anion Gap 5, BUN 8, Creatinine 0.89, Estim Creat Clear Calc 88.51, Est GFR (MDRD) Af Amer 109, Est GFR (MDRD) Non-Af 90, BUN/Creatinine Ratio 9.0 L, Glucose 180 H, Calcium 8.2 L, Magnesium 2.0 Current Medications Acetaminophen (Tylenol) 650 mg PO Q6H PRN PRN PRN Reason: HEADACHE/FEVER (T>100F) Last Admin: 11/21/19 04:48 Dose: 650 mg Documented by: Amlodipine Besylate (Norvasc) 10 mg PO DAILY [facility] Last Admin: 11/22/19 08:37 Dose: 10 mg Documented by: Cyclobenzaprine HCl (Cyclobenzaprine Hcl) 5 mg PO Q8 [facility] Last Admin: 11/22/19 05:11 Dose: 5 mg Documented by: Enoxaparin Sodium (Lovenox) 40 mg SC DAILY [facility] Last Admin: 11/22/19 08:37 Dose: 40 mg Documented by: Gabapentin (Neurontin) 300 mg PO BIDCM [facility] Last Admin: 11/22/19 08:37 Dose: 300 mg Documented by: Hydrochlorothiazide (Hctz) 25 mg PO DAILY [facility] Last Admin: 11/22/19 08:39 Dose: 25 mg Documented by: Sodium Chloride () 1,000 mls @ 100 mls/hr IV .Q10H [facility] Last Infusion: 11/22/19 09:56 Dose: 100 mls/hr Documented by: Ceftriaxone Sodium 2 gm/ (Sodium Chloride) 50 mls @ 100 mls/hr IV Q24 [facility] Last Infusion: 11/22/19 09:56 Dose: Infused Documented by: Insulin Human Lispro (Humalog Kwikpen (Bkc)) 0 unit SC ACHS [facility]; Protocol Last Admin: 11/22/19 06:24 Dose: 1 units Documented by: Nutritional Formula (Lactose Free) (Glucerna Shake) 120 ml PO TIDCM [facility] Last Admin: 11/22/19 08:43 Dose: 120 ml Documented by: Nystatin (Mycostatin Powder) 1 applic TOPICAL BID [facility]; Protocol Last Admin: 11/22/19 08:39 Dose: 1 applicatio Documented by: Ondansetron HCl (Zofran) 4 mg IV Q6H PRN PRN PRN Reason: NAUSEA/VOMITING Oxycodone HCl (Oxyir) 5 mg PO BID PRN PRN Reason: Pain Score 6-10/10 Last Admin: 11/20/19 20:15 Dose: 5 mg Documented by: Pantoprazole Sodium (Protonix) 40 mg PO DAILY [facility] Last Admin: 11/22/19 08:37 Dose: 40 mg Documented by: Potassium Chloride (K-Dur) 40 meq PO BID [facility] Last Admin: 11/22/19 08:38 Dose: 40 meq Documented by: Sodium Chloride () 10 - 40 ml IV UD PRN PRN Reason: SALINE FLUSH Discharge Activity: Return to Normal Activity Call your doctor if you observe: Fever of 101 or Higher, Shortness of breath, Dizziness, Fainting spells, Swelling in the ankles, Chest pain, Increased palpitations (irregular heartbeat) Home Medications: Medications to take at Discharge Cholecalciferol (VIT D3) [Vitamin D3] 2,000 unit PO DAILY 01/18/15 Potassium Chloride [K-Dur] 40 meq PO BID 04/19/14 Amlodipine [Norvasc] 10 mg PO DAILY 11/20/19 Cyclobenzaprine HCl 5 mg PO Q8 11/20/19 Gabapentin [Neurontin] 300 mg PO BID 11/20/19 Hydrochlorothiazide [Hctz] 25 mg PO DAILY 11/20/19 Oxycodone HCl/Acetaminophen [Percocet 5-325] 1 tab PO BID PRN 11/20/19 Pantoprazole Sodium [Protonix] 40 mg PO DAILY 11/20/19 metFORMIN (XR) [Glucophage Xr] 500 mg PO DAILY 11/21/19 Cefdinir [Omnicef [equiv]] 300 mg PO Q12H #10 cap 11/22/19 Following Prescriptions Were Given to Patient: Cefdinir [Omnicef [equiv]] 300 mg PO Q12H #10 cap Transmission Status: Pending to [facility] Primary Care Physician: Scotty Spaulding MD [Primary Care Provider] - Please follow up with your Primary Care Physician in: 3-5 days Disposition: Home Minutes spent on discharge:: 35 Patient Condition:: Stable Medical Necessity - Tobacco Use Smoking Status: Former smoker Tobacco Use: Cigarettes Meaningful Use Info Meaningful Use Diagnoses (Choose all that apply): None applicable Inpatient E&M: 13802 Disch Hosp
== END 2019-11-22 11:00 | disposition home or self-care (01) | DRG 872 ==
LOC: ED 17:07 → MS3 17:37
PROVIDERS: Hospitalist; Admitting Provider Hospitalist; Emergency Provider Emergency Medicine; PCP Family Medicine; Visit Provider Family Medicine
DX: A41.9 Sepsis, unspecified organism (principal); N30.00 Acute cystitis without hematuria; Z68.42 Body mass index [BMI] 45.0-49.9, adult; B96.20 Unspecified Escherichia coli [E. coli] as the cause of diseases classified elsewhere; I10 Essential (primary) hypertension; E11.9 Type 2 diabetes mellitus without complications; N40.0 Benign prostatic hyperplasia without lower urinary tract symptoms; E78.5 Hyperlipidemia, unspecified; E66.01 Morbid (severe) obesity due to excess calories; E87.6 Hypokalemia; T50.2X5A Adverse effect of carbonic-anhydrase inhibitors, benzothiadiazides and other diuretics, initial encounter; Z87.440 Personal history of urinary (tract) infections; Z79.84 Long term (current) use of oral hypoglycemic drugs; Z79.899 Other long term (current) drug therapy; Z87.891 Personal history of nicotine dependence
CPT/HCPCS: 36415; 71045; 80048; 81001; 82962; 83036; 83605; 83735; 84484; 85025; 87040; 87086; 87088; 87186; 93005; 94762; 97161; 97166; 97802; 99283; J7030; A4216; J0696

== ENCOUNTER → 2020-07-27 | Outpatient (CLI) | payer MEDICARE, SELFPAY ==
[2019-11-20 18:35] VITALS: BMI 45.3
--- NOTE | 2020-07-26 11:49 | COLBX_PTH ---
PATIENT: RANCHO GARCIA LOC: [facility] U#:[id number] AGE/SX: 69/M ROOM: RE07/27/[address]: Dr. Jamey Mccall MD : [id number] BED: DIS: 07/27/2020 SPEC #: [id number] RECD: 07/27/20 12:22 STATUS: YASMIN REDenis #: [id number] BRITT: 07/26/20 11:[address]: Jamey Mccall DEPT: SURGICAL PATHOLOGY RECD BY: Nessa Lowe ENTERED: 07/27/20 13:34 SP TYPE: COLON BX OTHR DR: Dr. Scotty Spaulding MD Tissues: A - Ascending colon B - Descending colon Procedures: Surgery Specimen Level IV HEADER OPERATION: Colonoscopy PRE-OP DIAGNOSIS: Colon polyps TISSUE SUBMITTED: A ? Ascending colon polyp, B ? Descending colon polyps MICROSCOPIC DIAGNOSIS A. Ascending colon polyp, biopsy: Tubular adenoma. B. Descending colon polyps, biopsy: Fragments of tubular adenoma. SEAMUS:lauren 07/28/2020 MICROSCOPIC DESCRIPTION Slides are reviewed. GROSS DESCRIPTION A - Received in fixative is one container labeled with the patient's name and designated ascending colon polyp. The specimen consists of one irregular fragment of light trinh soft tissue that measures 0.3 x 0.2 x 0.1 cm. The specimen is totally submitted in one cassette. B - Received in fixative is one container labeled with the patient's name and designated descending colon polyps. The specimen consists of a piece of trinh-pink polyp measuring 1.2 x 0.5 x 0.3 cm. This piece s bisected. Also present in the container is a piece of trinh-pink cyst measuring 0.7 x 0.2 x 0.1 cm. The entire specimen is submitted in one cassette. / SEAMUS:lauren 07/27/20 TC:1 CPT: 11544 x2
== END | disposition home or self-care (01) ==
LOC: LABSPEC 12:37
PROVIDERS: PCP Family Medicine; Referring Provider Internal Medicine Gastroenterology; Visit Provider Internal Medicine Gastroenterology
DX: D12.2 Benign neoplasm of ascending colon (principal); D12.4 Benign neoplasm of descending colon; Z86.010 Personal history of colon polyps
CPT/HCPCS: 88305

== ENCOUNTER 2022-08-19 18:33 | Emergency (ER) | payer MEDICARE, SELFPAY ==
[2022-08-19 18:34] VITALS: BP 186/101; PULSE 95; RESP 18; TEMP 36; O2SAT 96; BMI 43.4
--- NOTE | 2022-08-19 19:00 | EX.ED.DYSGE1 ---
HPI History of Present Illness Chief Complaint: Cellulitis Informant: patient and family Narrative Narrative: Patient here with significant other daughter for evaluation concerns for worsening cellulitis right lower extremity. States injury both legs 2 weeks ago from a tractor, outpatient management by [facility] coach professional athletes Dr. Juarez) reported had a left ankle fracture none on the right. There was redness to the leg. He was placed in a boot on the left leg. He was placed on Keflex he had a follow-up yesterday the redness has been persistent he finished his antibiotics. He was told if the redness worsens to go to the ED. Seem to worsen overnight. Denies fevers or chills. He is a diabetic. Prior similar symptoms: Yes PFSH PFS Medical History (Updated 08/19/22 @ 21:[address] Marv Carranza, DO) Benign prostatic hyperplasia Former tobacco use GERD (gastroesophageal reflux disease) Hyperlipidemia Hypertension Morbid obesity Type 2 diabetes mellitus Home Medications cholecalciferol (vitamin D3) 25 mcg (1,000 unit) tablet (Vitamin D3) 2,000 unit PO DAILY SUPPLEMENT 04/19/14 [History Last Taken Unknown] potassium chloride 20 mEq tablet,extended release(part/cryst) (Klor-Con M) 40 meq PO BID POTASSIUM 04/19/14 [History Last Taken Unknown] amlodipine 10 mg tablet 10 mg PO DAILY BP 11/20/19 [History Last Taken Unknown] cyclobenzaprine 5 mg tablet 5 mg PO Q8 Check with primary doctor 11/20/19 [History Last Taken Unknown] gabapentin 300 mg capsule 300 mg PO BID NERVE PAIN 11/20/19 [History Last Taken Unknown] hydrochlorothiazide 25 mg tablet 25 mg PO DAILY BP 11/20/19 [History Last Taken Unknown] oxycodone-acetaminophen 5 mg-325 mg tablet 1 tab PO BID PRN Not Specified 11/20/19 [History Last Taken Unknown] pantoprazole 40 mg tablet,delayed release 40 mg PO DAILY GERD 11/20/19 [History Last Taken Unknown] metformin 500 mg tablet,extended release 24 hr 500 mg PO DAILY diabetes 11/21/19 [History Last Taken 11/20/19] cefdinir 300 mg capsule 300 mg PO Q12H #10 caps 11/22/19 [Rx Last Taken Unknown] cephalexin 500 mg capsule 500 mg PO Q6 #40 CAPSULES 08/19/22 [Rx Last Taken Unknown] doxycycline monohydrate 100 mg capsule 100 mg PO BID #20 CAPSULES 08/19/22 [Rx Last Taken Unknown] Allergy/AdvReac Type Severity Reaction Status Date / Time iodine Allergy Anaphylaxis Verified 11/20/19 14:25 aspirin AdvReac Nausea/Vom/ Verified 11/20/19 14:25 Diarrhea Family History (Updated 08/19/22 @ 21:[address] Brina Neves MD) Father Pancreatic cancer Sister Pancreatic cancer Brother Diabetes Cancer Hypertension Mother CVA (cerebral vascular accident) Heart disease Diabetes Cancer Surgical History (Updated 08/19/22 @ 21:[address] Brina Neves MD) History of knee surgery S/P appendectomy S/P cholecystectomy S/P total knee arthroplasty Social History (Updated 08/19/22 @ 21:[address] Brina Neves MD) household members: spouse Smoking Status: Former smoker how long ago did patient quit smoking: Quit 04/02/2005, smoked 1 ppd x 30 years. alcohol intake: never substance use type: does not use ROS ROS ED Constitutional Constitutional ED: Denies chills, fever(s) or sweats Eyes Eyes: Denies change in vision ENT ENT ED: Denies dysphagia or sore throat Cardiovascular Cardiovascular: Denies chest pain, leg edema, palpitations or racing heartbeat Respiratory/Chest Respiratory/Chest: Denies cough, dyspnea or dyspnea on exertion Gastrointestinal Gastrointestinal: Denies abdominal pain, diarrhea, nausea or vomiting Genitourinary Genitourinary ED: Denies dysuria, hematuria or urinary frequency Musculoskeletal Musculoskeletal: Denies back pain, extremity pain or neck pain Integumentary Reports rash; Denies wounds Neurologic Neurologic: Denies headache(s), paresthesias or weakness EXAM Physical Exam Const Vital Signs: 08/19/22 18:34 08/19/22 19:02 Temperature 96.8 F L Temperature Source Temporal Pulse Rate 95 Respiratory Rate 18 Respiratory Effort Normal Non-Labored Respiratory Pattern Normal Blood Pressure 186/101 H Blood Pressure Mean 129 Pulse Ox 96 Oxygen Delivery Method Room Air Positive well nourished and well developed General Appearance ED: well developed and NAD HEENT Reports moist mucous membranes normocephalic and atraumatic Eyes PERRL, EOMs intact bilaterally and conjunctivae normal General Eye ED: Yes normal appearance of both eyes Neck no lymphadenopathy and supple General: Negative for tenderness Chest Wall Chest: Negative for tenderness Resp normal respiratory effort and normal air movement Effort and Inspection: symmetric chest movement; Negative for respiratory distress Cardio regular rate, regular rhythm and no murmurs Peripheral Pulses: pulses 2+ throughout GI normal to inspection, nondistended, normoactive bowel sounds and non-tender Palpation: Negative for guarding or rebound tenderness present Back/Spine no CVA tenderness and no thoracic nor lumbar tenderness Extremity normal to inspection General Extremety ED: Negative for edema or tenderness General Extremity: Negative for edema Neuro oriented x3 and no sensory deficits noted Sensorium / Orientation: awake and alert Skin Skin Narrative: Right lower extremity: Distal leg anteriorly there is palm-sized fluctuance with erythema extends to the mid leg there is a previous outline reported from 2 weeks ago. There is new erythema slightly progressing to the proximal tibia, no joint involvement. There is no active drainage. Neurovascular sterilely. MDM MDM MDM Narrative Medical decision making narrative: Interventions / MDM: Differential diagnosis: Right lower leg cellulitis, right lower leg abscess, right lower leg hematoma Diagnosis considered but do not suspect: N/A My EKG interpretation: N/A Imaging independently reviewed and interpreted by myself: N/A External documents reviewed: N/A Test considered but not ordered:N/A ED course: Patient 1 out of 4 SIRS criteria with heart rate in the 90s. Erythema was outlined, due to potential infection and sepsis labs were ordered. White count returned at 8. He did not meet SIRS criteria. Elevate inflammatory his left turn at 2.2. Was given IV fluids. I performed an I&D of the fluctuant area there is no exudative return there was blood return therefore likely hematoma with cellulitis. I did obtain wound cultures both aerobic and anaerobic and sent to the lab. With the cellulitis he is covered with dose of Rocephin and vancomycin in the ED. He is nontoxic. He is afebrile. I considered admission with a diabetes history however afebrile with a normal white count. Discussed with patient outpatient follow-up with his doctors he agrees with the plan. Return precautions were discussed. All questions were answered. Incision and drainage: Verbal consent. Normal sterile conditions. Alcohol prep of the skin, 7 cc lidocaine 1% used for local analgesia, Betadine prep of the skin, a cruciate incision over the distal anterior tibia, hemostats directed with loculations broken dark bloody drainage return, cultures were collected, copiously flushed with 500 cc normal saline fluid. Dressing placed by nursing. Patient tolerated procedure well. Re-evaluation: stable Disposition discussed with patient/family/significant other: Patient and family Case discussed with consulting clinician: N/A Lab Data Attestation: I reviewed the patient's lab results. Labs: Laboratory Results - last 24 hr 08/19/22 08/19/22 08/19/22 19:00 19:00 19:00 WBC 8.0 RBC 4.49 L Hgb 13.5 Hct 41.1 MCV 91.5 MCH 30.1 MCHC 32.8 RDW Std Deviation 43.7 RDW Coeff of Tish 13.0 Plt Count 274 MPV 9.0 Immature Gran % (Auto) 0.400 Neut % (Auto) 70.7 H Lymph % (Auto) 20.3 Yell % (Auto) 6.7 Eos % (Auto) 1.5 Baso % (Auto) 0.4 Absolute Neuts (auto) 5.7 Absolute Lymphs (auto) 1.63 Nucleated RBC % 0 ESR 34 H Sodium 142 Potassium 3.6 Chloride 106 Carbon Dioxide 28.0 Anion Gap 8 BUN 20 H Creatinine 1.00 Estim Creat Clear Calc 76.49 Est GFR (MDRD) Af Amer 95 Est GFR (MDRD) Non-Af 78 BUN/Creatinine Ratio 20.1 H Glucose 134 H Lactic Acid 2.2 H* Calcium 9.0 Total Bilirubin 0.40 AST 21 ALT 29 Alkaline Phosphatase 70 C-React Prot Ext Range 7.06 H Total Protein 6.9 Albumin 3.3 Globulin 3.6 Albumin/Globulin Ratio 0.9 Discharge Plan Triage Chief Complaint: Cellulitis ED Provider: Marv Carranza Dx/Rx/DC Orders Clinical Impression: Cellulitis of leg, right, Type 2 diabetes mellitus, Hematoma of right lower leg, Encounter for incision and drainage procedure Instructions: Cellulitis Dc, ED Soft Tissue Contusion Prescriptions: New doxycycline monohydrate 100 mg capsule 100 mg PO BID Qty: 20 0RF cephalexin [cephalexin] 500 mg capsule 500 mg PO Q6 Qty: 40 0RF No Action potassium chloride [Klor-Con M20] 20 MEQ tablet 40 meq PO BID Label Comments: potassium supplement cholecalciferol (vitamin D3) [Vitamin D3] 1,000 UNIT tablet 2,000 unit PO DAILY Label Comments: supplement amlodipine 10 MG tablet 10 mg PO DAILY gabapentin 300 MG capsule 300 mg PO BID oxycodone-acetaminophen 1 TABLET tablet 1 tab PO BID PRN (Reason: Not Specified) Label Comments: pain medication pantoprazole 40 MG tablet 40 mg PO DAILY hydrochlorothiazide 25 MG tablet 25 mg PO DAILY cyclobenzaprine 5 MG tablet 5 mg PO Q8 metformin 500 MG tablet 500 mg PO DAILY cefdinir 300 MG capsule 300 mg PO Q12H Qty: 10 0RF Primary Care Provider: Scotty Spaulding Referrals: Scotty Spaulding MD [Primary Care Provider] - 3-5 Days Activity Restrictions/Additional Instructions: Wound cultures obtained take antibiotic as prescribed. Follow-up with your coach professional athletes and your PCP. Return if worsening symptoms. Disposition Disposition: Home, Self Care
[2022-08-19 19:14] LABS: Absolute Lymphocyte Count 1.63 X10^3/uL (0.83-4.51); Absolute Neutrophil Count 5.7 X10^3/uL (2.0-7.7); Basophil# 0.03 X10^3/uL; Basophil% 0.4 % (0-1); Eosinophil# 0.12 X10^3/uL; Eosinophils% 1.5 % (0-5); Hematocrit 41.1 % (40-54); Hemoglobin 13.5 g/dL (13.0-16.5); Lymphocyte # 1.63 X10^3/ul (0.83-4.51); Lymphocyte % 20.3 % (19-41); Mean Corp Hgb Conc 32.8 g/dL (32-36); Mean Corpuscular Hgb 30.1 pg (27.0-32.0); Mean Corpuscular Volume 91.5 fL (80-94); Monocyte# 0.54 X10^3/uL; Monocyte% 6.7 % (0-10); NRBC Flagged by Analyzer 0 % (0-5); Neutrophil # 5.69 X10^3/uL (2.7-7.7); Neutrophil % 70.7 % (47-70); Platelet Count 274 K/mm3 (150-450); RBC Distribution Width SD 43.7 fl (35.1-43.9); Red Blood Count 4.49 M/mm3 (4.6-6.2)
[2022-08-19 19:20] LABS: Erythrocyte Sedimentation Rate 34 mm/hr (0-20)
[2022-08-19 19:38] LABS: ALB/GLOB Ratio 0.9 RATIO (0.9-2.4); AST(SGOT) 21 U/L (15-37); Alanine Aminotransfer ALT/SGPT 29 U/L (16-61); Albumin, Serum 3.3 g/dL (3.2-5.0); Alkaline Phosphatase 70 U/L (45-117); Anion Gap 8 (5-15); BUN 20 mg/dL (7-18); BUN/Creat Ratio 20.1 RATIO (10-20); CRP 7.06 mg/L (0.0-3.0); Chloride 106 mmol/L (98-107); EST Glomerular Filtration Rate 78 mL/min (>60); Est Glom Filt Rate - Afr Amer 95 mL/min (>60); Estimated Creatinine Clearance 76.49 ml/min; Globulin 3.6 g/dL (2.2-4.2); Glucose 134 mg/dL (74-106); Potassium 3.6 mmol/L (3.5-5.1); Protein, Total 6.9 g/dL (6.4-8.2); Sodium Level 142 mmol/L (136-145)
[2022-08-19 19:42] LABS: Lactic Acid 2.2 mmol/L (0.4-1.9)
--- NOTE | 2022-08-19 19:48 | ED.RN ---
Lactic 2.2. Dr. Carranza notified.
[2022-08-19] MEDS: Lidocaine 1% (20 ml mdv) 20 ML Vial INFILT (19:59)
[2022-08-19] MEDS: 0.9% Normal Saline 1,000 ML 999 ML IV (20:14)
[2022-08-19] MEDS: Ceftriaxone 1 GM/50 ML BAG IV (20:44)
[2022-08-19 23:08] LABS: Reflex Lactate? Y
[2022-08-19 23:37] VITALS: BP 164/87; PULSE 87; RESP 18; O2SAT 96
== END 2022-08-19 23:50 | disposition home or self-care (01) ==
PROVIDERS: Emergency Provider Emergency Medicine; PCP Family Medicine; Visit Provider Emergency Medicine
DX: L03.115 Cellulitis of right lower limb (principal); E11.9 Type 2 diabetes mellitus without complications; I10 Essential (primary) hypertension; Z87.891 Personal history of nicotine dependence; E78.5 Hyperlipidemia, unspecified; T14.8XXA Other injury of unspecified body region, initial encounter; Z79.899 Other long term (current) drug therapy; X58.XXXA Exposure to other specified factors, initial encounter
CPT/HCPCS: 10140; 36415; 80053; 83605; 85025; 85652; 86140; 87040; 87070; 87075; 87205; 96365; 96367; 99285; J7030; J7040; A4216

== ENCOUNTER 2022-08-30 18:29 | Emergency (ER) | payer MEDICARE, SELFPAY ==
[2022-08-30 18:29] VITALS: BP 180/82; PULSE 92; RESP 16; TEMP 37; O2SAT 97
[2022-08-30 19:00] VITALS: BMI 44.1
--- NOTE | 2022-08-30 19:34 | US_ITS ---
STUDY: VENOUS DOPPLER ULTRASOUND - RIGHT LOWER EXTREMITY REASON FOR EXAM: Male, 71 years old. Right leg pain TECHNIQUE: Ultrasound evaluation of the deep vein system to include muller-scale imaging and compression was performed. Muller-scale imaging and Doppler sonographic evaluation, including duplex spectral analysis and qualitative color flow sonography, was performed. COMPARISON: None. FINDINGS: Common Femoral Vein: Normal compression, spontaneity and augmentation. Normal color Doppler. Common Femoral Vein/Greater Saphenous Junction: Normal compression, spontaneity and augmentation. Normal color Doppler. Femoral Proximal: Normal compression, spontaneity and augmentation. Normal color Doppler. Femoral Middle: Normal compression, spontaneity and augmentation. Normal color Doppler. Femoral Distal: Normal compression, spontaneity and augmentation. Normal color Doppler. Popliteal Vein: Normal compression, spontaneity and augmentation. Normal color Doppler. Posterior Tibial Vein: Normal compression, spontaneity and augmentation. Normal color Doppler. Peroneal Vein: Normal compression, spontaneity and augmentation. Normal color Doppler. US/Venous Duplex Imag/Limited/Uni IMPRESSION: No evidence for DVT. Electronically Signed: Rocky Sandoval MD at 20:28 EDT ,
--- NOTE | 2022-08-30 20:34 | EX.ED.DYSGE1 ---
HPI History of Present Illness Chief Complaint: Cellulitis Narrative Narrative: Patient is a 71-year-old male who is presenting to the ER with chief complaint of swelling to the right leg. Patient's swelling has improved, the redness has significantly improved. Patient was here several weeks ago, patient had a abscess/hematoma to the right anterior wild that was opened up and evacuated in the ER. Patient was placed on doxycycline and Keflex at that time. Patient's redness on his leg has significantly improved. Patient has 2 different skin marking lines that are much proximal where the minimal redness is to his right lower anterior wild at this time. Patient was seen by the nurse practitioner today. Patient was sent to the ER by nurse practitioner to be reevaluated because patient's right leg is still red. Patient has never heard there were venous stasis or venous stasis dermatitis or peripheral edema that could be causing some redness or pinkish coloration to the skin. Patient states the right leg does not hurt at all like it did before. Patient states the redness is much better. Patient, and daughter states they are only here because the nurse practitioner told them to come to the ER to get reevaluated because his right leg is still red. Patient had a traumatic injury several months ago to both lower extremities with fractures after a crush injury from a farm vehicle. Patient's and daughter at bedside. Patient has no systemic complaints of fever, chills, nausea, vomiting, or any other acute complaints. Patient during initial HPI appears to have venous stasis le secondary to chronic peripheral edema. Patient states that his right leg is typically more swollen than his left leg, that is normal. Patient has no pain to the posterior aspect of his right leg. [facility] Medical History (Updated 08/30/22 @ 20:[address] Chava Lundberg, DO) Benign prostatic hyperplasia Former tobacco use GERD (gastroesophageal reflux disease) Hyperlipidemia Hypertension Morbid obesity Type 2 diabetes mellitus Home Medications cholecalciferol (vitamin D3) 25 mcg (1,000 unit) tablet (Vitamin D3) 2,000 unit PO DAILY SUPPLEMENT 04/19/14 [History Last Taken Unknown] potassium chloride 20 mEq tablet,extended release(part/cryst) (Klor-Con M) 40 meq PO BID POTASSIUM 04/19/14 [History Last Taken Unknown] amlodipine 10 mg tablet 10 mg PO DAILY BP 11/20/19 [History Last Taken Unknown] cyclobenzaprine 5 mg tablet 5 mg PO Q8 Check with primary doctor 11/20/19 [History Last Taken Unknown] gabapentin 300 mg capsule 300 mg PO BID NERVE PAIN 11/20/19 [History Last Taken Unknown] hydrochlorothiazide 25 mg tablet 25 mg PO DAILY BP 11/20/19 [History Last Taken Unknown] oxycodone-acetaminophen 5 mg-325 mg tablet 1 tab PO BID PRN Not Specified 11/20/19 [History Last Taken Unknown] pantoprazole 40 mg tablet,delayed release 40 mg PO DAILY GERD 11/20/19 [History Last Taken Unknown] metformin 500 mg tablet,extended release 24 hr 500 mg PO DAILY diabetes 11/21/19 [History Last Taken 11/20/19] cefdinir 300 mg capsule 300 mg PO Q12H #10 caps 11/22/19 [Rx Last Taken Unknown] cephalexin 500 mg capsule 500 mg PO Q6 #40 CAPSULES 08/19/22 [Rx Last Taken Unknown] doxycycline monohydrate 100 mg capsule 100 mg PO BID #20 CAPSULES 08/19/22 [Rx Last Taken Unknown] hydrochlorothiazide 25 mg tablet 25 mg PO DAILY #20 tabs 08/30/22 [Rx Last Taken Unknown] Allergy/AdvReac Type Severity Reaction Status Date / Time iodine Allergy Anaphylaxis Verified 08/30/22 18:32 aspirin AdvReac Nausea/Vom/ Verified 08/30/22 18:32 Diarrhea Family History (Updated 08/19/22 @ 21:[address] Brina Neves MD) Father Pancreatic cancer Sister Pancreatic cancer Brother Diabetes Cancer Hypertension Mother CVA (cerebral vascular accident) Heart disease Diabetes Cancer Surgical History History of knee surgery S/P appendectomy S/P cholecystectomy S/P total knee arthroplasty Social History (Updated 08/19/22 @ 21:[address] Brina Neves MD) household members: spouse Smoking Status: Former smoker how long ago did patient quit smoking: Quit 04/02/2005, smoked 1 ppd x 30 years. alcohol intake: never substance use type: does not use ROS ROS ED ROS Narrative REVIEW OF SYSTEMS: Unless otherwise stated in this report the patient's positive and negative responses for review of systems for constitutional, eyes, ENT, cardiovascular, respiratory, gastrointestinal, neurological, , musculoskeletal, and integument systems and related systems to the presenting problem are either stated in the history of present illness or were not pertinent or were negative for the symptoms and/or complaints related to the presenting medical problem. EXAM Physical Exam Narrative Exam Narrative: Vital signs reviewed and patient is not hypoxic. General: The patient appears well and in no apparent distress. Patient is resting comfortably on cart. Not toxic, lethargic, or listless. Skin: Warm, dry, no pallor noted. There is no rash noted. Head: Normocephalic, atraumatic Eye: Normal conjunctiva, no drainage, EOMI. PERRL. Ears, Nose, Mouth, and Throat: oral mucosa is moist. Nares patent. Mouth without vesicles. Cardiovascular: Regular Rate and Rhythm, no murmurs, gallops, or rubs Respiratory: Patient is in no distress, no accessory muscle use, lungs are clear to auscultation, no wheezing, rales or rhonchi Back: non-tender, no CVA tenderness bilaterally to percussion. NO CTLS midline or paraspinal tenderness to palpation. GI: Soft, obese, no tenderness to palpation, no masses appreciated. No rebound, guarding, or rigidity noted. Musculoskeletal: The patient has full range of motion of all extremities and joints with no difficulty. Patient has no motor, no sensory deficits. Patient has no pain to palpation to the posterior aspect of the right thigh, popliteal fossa, right calf. Patient's right leg is more swollen than the left leg. Patient has 2 skin marking lines that are much more proximal than where the small area of redness is to the right lower anterior wild. Patient has no secondary signs of additional abscess or any other new infection. Patient has no pain to the right anterior wild. Besides right leg being more swollen than the left leg which is chronic according to the patient, patient has no new signs of DVT or any new infection to the right lower extremity. Neurological: A&O x4, normal speech, no focal neurological deficits. Psychiatric: Cooperative Const Vital Signs: 08/30/22 18:29 08/30/22 20:49 Temperature 98.6 F Temperature Source Temporal Pulse Rate 92 78 Respiratory Rate 16 16 Blood Pressure 180/82 H 150/88 H Blood Pressure Mean 114 108 Pulse Ox 97 97 Oxygen Delivery Method Room Air Room Air MDM MDM MDM Narrative Medical decision making narrative: Preliminary report of the ultrasound of the right leg shows no DVT. 15 to 20 minutes was spent at bedside by myself talking to patient, and daughter. Patient is taking hydrochlorothiazide 12.5 mg at home daily. Patient will increase this to 25 mg daily for the next 2 weeks. Patient also will start using his bed that can elevate his legs above his heart while he is sleeping at nighttime. Patient will start using elevation. 10 minutes was spent on talking and discussing differential diagnosis of the chronic lymphedema, chronic peripheral edema, chronic venous stasis dermatitis versus true cellulitis. Myself along with patient, daughter and all agree that patient redness is better, there is no need for additional antibiotics at this time. Patient has no venous stasis ulcerations. Patient will try taking 25 mg of hydrochlorothiazide a day, elevate his legs at nighttime for the next week or 2, and then follow-up with PCP to see if this makes a difference or not which we all believe that well. Patient is very happy with this plan. No other imaging or lab work is necessary at this time. Discharge Plan Triage Chief Complaint: Cellulitis ED Provider: Chava Lundberg Dx/Rx/DC Orders Clinical Impression: Leg edema, right, Venous stasis dermatitis Instructions: Taking a Diuretic, ED Peripheral Edema, Bilateral, ED Lymphedema, ED Venous Leg Ulcer Prescriptions: New hydrochlorothiazide 25 mg tablet 25 mg PO DAILY Qty: 20 0RF No Action potassium chloride [Klor-Con M20] 20 MEQ tablet 40 meq PO BID Label Comments: potassium supplement cholecalciferol (vitamin D3) [Vitamin D3] 1,000 UNIT tablet 2,000 unit PO DAILY Label Comments: supplement amlodipine 10 MG tablet 10 mg PO DAILY gabapentin 300 MG capsule 300 mg PO BID oxycodone-acetaminophen 1 TABLET tablet 1 tab PO BID PRN (Reason: Not Specified) Label Comments: pain medication pantoprazole 40 MG tablet 40 mg PO DAILY hydrochlorothiazide 25 MG tablet 25 mg PO DAILY cyclobenzaprine 5 MG tablet 5 mg PO Q8 metformin 500 MG tablet 500 mg PO DAILY cefdinir 300 MG capsule 300 mg PO Q12H Qty: 10 0RF doxycycline monohydrate 100 mg capsule 100 mg PO BID Qty: 20 0RF cephalexin [cephalexin] 500 mg capsule 500 mg PO Q6 Qty: 40 0RF Primary Care Provider: Scotty Spaulding Referrals: Scotty Spaulding MD [Primary Care Provider] - Activity Restrictions/Additional Instructions: Either take your hydrochlorothiazide 12.5 mg tablets and take 2 of them daily, or use the prescription I gave you for hydrochlorothiazide 25 mg tablet daily to help improve the lower leg edema somewhat. Keep your legs elevated at nighttime as discussed when sleeping for the next 1 to 2 weeks. Follow-up with your PCP if no improvement in the next 1 or 2 weeks. Disposition Disposition: Home, Self Care Discharge Date/Time: 08/30/22 20:55
[2022-08-30 20:49] VITALS: BP 150/88; PULSE 78; RESP 16; O2SAT 97
== END 2022-08-30 20:55 | disposition home or self-care (01) ==
PROVIDERS: Emergency Provider Emergency Medicine; PCP Family Medicine; Visit Provider Emergency Medicine
DX: I87.2 Venous insufficiency (chronic) (peripheral) (principal); E66.01 Morbid (severe) obesity due to excess calories; Z68.41 Body mass index [BMI] 40.0-44.9, adult; E11.9 Type 2 diabetes mellitus without complications; I10 Essential (primary) hypertension; E78.5 Hyperlipidemia, unspecified; Z79.84 Long term (current) use of oral hypoglycemic drugs; Z79.899 Other long term (current) drug therapy; Z87.891 Personal history of nicotine dependence
CPT/HCPCS: 93971; 99282

== ENCOUNTER 2022-10-27 13:59 | Emergency (ER) | payer MEDICARE, SELFPAY ==
[2022-10-27 14:00] VITALS: BP 173/84; PULSE 95; RESP 14; TEMP 36.6; O2SAT 98; BMI 42.3
--- NOTE | 2022-10-27 14:40 | CT_ITS ---
STUDY: CT ABDOMEN AND PELVIS WITHOUT CONTRAST REASON FOR EXAM: Male, 71 years old. Left flank pain. History of kidney stones. Hematuria. RADIATION DOSAGE (If Supplied By Facility): CTDIvol = ( 27.82 ) mGy, DLP = ( 1573.48 ) mGycm TECHNIQUE: Transaxial images were obtained from the dome of the diaphragm to the symphysis pubis without oral contrast, and without intravenous contrast. Sagittal and coronal images were reconstructed. Individualized dose optimization techniques were used for this CT. COMPARISON: Comparison is made with prior study dated May 16, 2014. FINDINGS: Stable minimal increased markings at the lung bases suggestive of underlying atelectasis and/or scarring. Coronary artery calcification. Normal liver. The gallbladder is contracted. Questionable tiny gallstone in the gallbladder lumen. Normal spleen. Normal pancreas. Normal bilateral adrenal glands. There is a 2.3 cm x 2 cm cyst in the lateral aspect of the right kidney. A subcentimeter hyperdense cyst is seen in the lower pole of the right kidney. Nonspecific left perinephric stranding. Mild left hydronephrosis. No definite calculus is seen although this may represent changes secondary to a recently passed calculus. Normal visualized stomach. Normal small intestine. There are multiple colonic diverticula consistent with diverticulosis. The appendix is visualized and appears normal. There is diffuse atherosclerotic calcification of the abdominal aorta, without a demonstrated aneurysm. Normal inferior vena cava. Normal retroperitoneum. Diffuse bladder wall thickening. There is a small umbilical hernia containing fat. There are diffuse degenerative changes of the visualized lumbar spine. CT/Abdomen/Pelvis without Cont IMPRESSION: Left perinephric stranding and mild left hydronephrosis although no obstructive calculus is seen at this time. This may represent a recently passed left ureteral calculus. Contracted gallbladder. Questionable tiny gallstone. Sigmoid diverticulosis. Bladder wall thickening. Stable right renal cysts. Electronically Signed: Juancho Uriarte MD at 15:29 EDT ,
--- NOTE | 2022-10-27 14:41 | EX.ED.DYSGE1 ---
HPI <JENNIFER Estrada - Last Filed: 10/27/22 17:59> History of Present Illness Chief Complaint: Flank Pain Narrative Narrative: Patient presenting today due to hematuria, dysuria, and left-sided flank pain that started yesterday. He has had a kidney stone in the past. He states that the flank pain is mild and intermittent. He denies any fever, chills, abdominal pain, nausea, and vomiting. He has a PMH of BPH, T2DM, arthritis, and hypertension. He is not on any blood thinners. He also reports that he has had issues with incontinence, for a while he reports that he will get a sudden urge to urinate and does not make it to the bathroom in time. He has not seen his PCP for this issue. PFS <JENNIFER Estrada - Last Filed: 10/27/22 17:59> [facility] Medical History Benign prostatic hyperplasia Former tobacco use GERD (gastroesophageal reflux disease) Hyperlipidemia Hypertension Morbid obesity Type 2 diabetes mellitus Home Medications cholecalciferol (vitamin D3) 25 mcg (1,000 unit) tablet (Vitamin D3) 2,000 unit PO DAILY SUPPLEMENT 04/19/14 [History Last Taken Unknown] potassium chloride 20 mEq tablet,extended release(part/cryst) (Klor-Con M) 40 meq PO BID POTASSIUM 04/19/14 [History Last Taken Unknown] amlodipine 10 mg tablet 10 mg PO DAILY BP 11/20/19 [History Last Taken Unknown] cyclobenzaprine 5 mg tablet 5 mg PO Q8 Check with primary doctor 11/20/19 [History Last Taken Unknown] gabapentin 300 mg capsule 300 mg PO BID NERVE PAIN 11/20/19 [History Last Taken Unknown] hydrochlorothiazide 25 mg tablet 25 mg PO DAILY BP 11/20/19 [History Last Taken Unknown] oxycodone-acetaminophen 5 mg-325 mg tablet 1 tab PO BID PRN Not Specified 11/20/19 [History Last Taken Unknown] pantoprazole 40 mg tablet,delayed release 40 mg PO DAILY GERD 11/20/19 [History Last Taken Unknown] metformin 500 mg tablet,extended release 24 hr 500 mg PO DAILY diabetes 11/21/19 [History Last Taken 11/20/19] cefdinir 300 mg capsule 300 mg PO Q12H #10 caps 11/22/19 [Rx Last Taken Unknown] cephalexin 500 mg capsule 500 mg PO Q6 #40 CAPSULES 08/19/22 [Rx Last Taken Unknown] doxycycline monohydrate 100 mg capsule 100 mg PO BID #20 CAPSULES 08/19/22 [Rx Last Taken Unknown] hydrochlorothiazide 25 mg tablet 25 mg PO DAILY #20 tabs 08/30/22 [Rx Last Taken Unknown] sulfamethoxazole 800 mg-trimethoprim 160 mg tablet (Bactrim DS) 1 tab PO BID 7 days #13 tabs 10/27/22 [Rx Last Taken Unknown] Allergy/AdvReac Type Severity Reaction Status Date / Time iodine Allergy Anaphylaxis Verified 10/27/22 14:00 aspirin AdvReac Nausea/Vom/ Verified 10/27/22 14:00 Diarrhea Family History Father Pancreatic cancer Sister Pancreatic cancer Brother Diabetes Cancer Hypertension Mother CVA (cerebral vascular accident) Heart disease Diabetes Cancer Surgical History History of knee surgery S/P appendectomy S/P cholecystectomy S/P total knee arthroplasty Social History household members: spouse Smoking Status: Former smoker how long ago did patient quit smoking: Quit 04/02/2005, smoked 1 ppd x 30 years. alcohol intake: never substance use type: does not use ROS <JENNIFER Estrada - Last Filed: 10/27/22 17:59> ROS ED Constitutional Constitutional ED: Denies chills or fever(s) Cardiovascular Cardiovascular: Denies chest pain Respiratory/Chest Respiratory/Chest: Denies cough or dyspnea Gastrointestinal Gastrointestinal: Denies abdominal pain, nausea or vomiting Genitourinary Genitourinary ED: Reports dysuria and hematuria Musculoskeletal Musculoskeletal: Reports back pain Integumentary Denies Abrasions or rash Neurologic Neurologic: Denies paresthesias or weakness EXAM <JENNIFER Estrada - Last Filed: 10/27/22 17:59> Physical Exam Const Vital Signs: 10/27/22 14:00 Temperature 98 F Temperature Source Temporal Pulse Rate 95 Respiratory Rate 14 Blood Pressure 173/84 H Blood Pressure Mean 113 Pulse Ox 98 Oxygen Delivery Method Room Air Positive well nourished, well developed and no apparent distress General Appearance ED: well developed HEENT Reports normocephalic and head/scalp atraumatic Mouth ED: Yes moist mucous membranes normal Eyes PERRL and EOMs intact bilaterally Neck full ROM and supple Chest Wall inspection of chest normal Resp normal respiratory effort and clear to auscultation bilaterally Cardio regular rate and regular rhythm GI soft to palpation, non-tender, non-distended and no masses Back/Spine normal ROM and normal to inspection General Back: Negative for CVA tenderness Extremity normal to inspection and full ROM Neuro oriented x3, CN's II-XII intact bilaterally, moves all extremities, no focal motor deficits and no sensory deficits noted Sensorium / Orientation: awake and alert Psych mental status grossly normal and thought process normal Skin no rashes or lesions noted and no wounds <Dr. Christian Rendon MD - Last Filed: 10/27/22 23:24> Physical Exam Const Vital Signs: 10/27/22 14:00 Temperature 98 F Temperature Source Temporal Pulse Rate 95 Respiratory Rate 14 Blood Pressure 173/84 H Blood Pressure Mean 113 Pulse Ox 98 Oxygen Delivery Method Room Air MDM <JENNIFER Estrada - Last Filed: 10/27/22 17:59> [facility] Narrative Medical decision making narrative: Patient presenting today due to left-sided flank pain and hematuria that he has had since yesterday. He reports that the hematuria seems to be mild. He has a history of kidney stones reports that it has been so long since he has had 1 that he is not sure if it felt similar to this or not. He has not had any fevers or chills, vitals are unremarkable here aside from elevated blood pressure. He is well-appearing and in no acute distress. He does not want anything for pain or nausea at this time. Labs obtained to rule out leukocytosis, electrolyte abnormality, LUZ, and UTI. CT of the abdomen and pelvis without contrast obtained to rule out kidney stone, diverticulitis, bowel obstruction, and other acute abdominal etiology. CT suggestive of a recently passed kidney stone on the left side. He does have a UTI, he will be given Bactrim with first dose here and culture will be sent. He is to follow-up with his PCP and will be discharged home in stable condition. He is comfortable with plan. He has been given return instructions. Lab Data Attestation: I reviewed the patient's lab results. Labs: Laboratory Results - last 24 hr 10/27/22 10/27/22 14:15 16:55 Sodium 143 Potassium 3.5 Chloride 106 Carbon Dioxide 30.0 Anion Gap 7 BUN 19 H Creatinine 1.34 H Estim Creat Clear Calc 57.08 Est GFR (MDRD) Af Amer 67 Est GFR (MDRD) Non-Af 55 L BUN/Creatinine Ratio 14.2 Glucose 133 H Calcium 9.4 Total Bilirubin 0.60 AST 15 ALT 26 Alkaline Phosphatase 64 Total Protein 7.2 Albumin 3.5 Globulin 3.7 Albumin/Globulin Ratio 0.9 Urine Color Yellow Urine Clarity Sl. Cloudy Urine pH 6.0 Ur Specific Cecil 1.015 Urine Protein 100 H Urine Glucose (UA) Normal Urine Ketones Negative Urine Occult Blood 250 H Urine Nitrite Positive H Urine Bilirubin Negative Urine Urobilinogen Normal Ur Leukocyte Esterase 500 H Urine RBC 25-50 SEEN Urine WBC 25-50 SEEN Ur Squamous Epith Cells 0-5 SEEN Urine Bacteria 1+ Hyaline Casts 0-5 SEEN Urine Mucus 0 SEEN Radiography Diagnostic Testing: Clinical Impression(s) from Imaging Studies Abdomen/Pelvis CT 10/27/22 14:40 IMPRESSION: Left perinephric stranding and mild left hydronephrosis although no obstructive calculus is seen at this time. This may represent a recently passed left ureteral calculus. Contracted gallbladder. Questionable tiny gallstone. Sigmoid diverticulosis. Bladder wall thickening. Stable right renal cysts. Electronically Signed: Juancho Uriarte MD at 15:29 EDT , <Dr. Christian Rendon MD - Last Filed: 10/27/22 23:24> [facility] Narrative Medical decision making narrative: Patient presenting today due to left-sided flank pain and hematuria that he has had since yesterday. He reports that the hematuria seems to be mild. He has a history of kidney stones reports that it has been so long since he has had 1 that he is not sure if it felt similar to this or not. He has not had any fevers or chills, vitals are unremarkable here aside from elevated blood pressure. He is well-appearing and in no acute distress. He does not want anything for pain or nausea at this time. Labs obtained to rule out leukocytosis, electrolyte abnormality, LUZ, and UTI. CT of the abdomen and pelvis without contrast obtained to rule out kidney stone, diverticulitis, bowel obstruction, and other acute abdominal etiology. CT suggestive of a recently passed kidney stone on the left side. He does have a UTI, he will be given Bactrim with first dose here and culture will be sent. He is to follow-up with his PCP and will be discharged home in stable condition. He is comfortable with plan. He has been given return instructions. Patient seen and evaluated with AMELIA. I personally interviewed and examined the patient. I was involved in all aspects of patient's orders, interpretation of results, and treatment. History is remarkable for left flank pain that occurred yesterday and recurred today. He presents with gross hematuria. States last him he had gross hematuria he had a kidney stone. He denies fever or chills. He does report nausea and vomiting. He denies black or maroon-colored stool. He is not on an anticoagulant. Patient is heavyset gentleman. He appears no obvious discomfort. HEENT exam is unremarkable. Lungs are clear auscultation. Heart is regular. Rate is normal. Abdomen is unremarkable. There is no CVA tenderness presently. Patient has hematuria. Will obtain UA to assess for infection. CT of the abdomen pelvis without contrast to assess for obstructing stone. Competence metabolic panel to assess renal function and glucose. Patient does have hydronephrosis without an obvious obstructing stone. This may represent a passed stone since he is pain-free. Urine does reveal pyuria, hematuria and 1+ bacteria culture was sent and he was treated with antibiotics. Creatinine is elevated 1.34. Glucose is slightly up at 133 with a normal CO2 and anion gap. Lab Data Labs: Laboratory Results - last 24 hr 10/27/22 10/27/22 14:15 16:55 Sodium 143 Potassium 3.5 Chloride 106 Carbon Dioxide 30.0 Anion Gap 7 BUN 19 H Creatinine 1.34 H Estim Creat Clear Calc 57.08 Est GFR (MDRD) Af Amer 67 Est GFR (MDRD) Non-Af 55 L BUN/Creatinine Ratio 14.2 Glucose 133 H Calcium 9.4 Total Bilirubin 0.60 AST 15 ALT 26 Alkaline Phosphatase 64 Total Protein 7.2 Albumin 3.5 Globulin 3.7 Albumin/Globulin Ratio 0.9 Urine Color Yellow Urine Clarity Sl. Cloudy Urine pH 6.0 Ur Specific Cecil 1.015 Urine Protein 100 H Urine Glucose (UA) Normal Urine Ketones Negative Urine Occult Blood 250 H Urine Nitrite Positive H Urine Bilirubin Negative Urine Urobilinogen Normal Ur Leukocyte Esterase 500 H Urine RBC 25-50 SEEN Urine WBC 25-50 SEEN Ur Squamous Epith Cells 0-5 SEEN Urine Bacteria 1+ Hyaline Casts 0-5 SEEN Urine Mucus 0 SEEN Radiography Diagnostic Testing: Clinical Impression(s) from Imaging Studies Abdomen/Pelvis CT 10/27/22 14:40 IMPRESSION: Left perinephric stranding and mild left hydronephrosis although no obstructive calculus is seen at this time. This may represent a recently passed left ureteral calculus. Contracted gallbladder. Questionable tiny gallstone. Sigmoid diverticulosis. Bladder wall thickening. Stable right renal cysts. Electronically Signed: Juancho Uriarte MD at 15:29 EDT Reading Location ID and State: [facility] / [place] , Service support , Discharge Plan Triage Chief Complaint: Flank Pain ED Midlevel Provider: Keena Meza ED Provider: Christian Rendon Dx/Rx/DC Orders Clinical Impression: Kidney stone, Acute UTI, Benign prostatic hyperplasia, Hypertension, Type 2 diabetes mellitus, Hydronephrosis, left, Hematuria Instructions: ED Bladder Infection, Male (Adult) Prescriptions: New sulfamethoxazole-trimethoprim [Bactrim DS] 800-160 mg tablet 1 tab PO BID 7 Days Qty: 13 0RF No Action potassium chloride [Klor-Con M20] 20 MEQ tablet 40 meq PO BID Patient Comments: potassium supplement cholecalciferol (vitamin D3) [Vitamin D3] 1,000 UNIT tablet 2,000 unit PO DAILY Patient Comments: supplement amlodipine 10 MG tablet 10 mg PO DAILY gabapentin 300 MG capsule 300 mg PO BID oxycodone-acetaminophen 1 TABLET tablet 1 tab PO BID PRN (Reason: Not Specified) Patient Comments: pain medication pantoprazole 40 MG tablet 40 mg PO DAILY hydrochlorothiazide 25 MG tablet 25 mg PO DAILY cyclobenzaprine 5 MG tablet 5 mg PO Q8 metformin 500 MG tablet 500 mg PO DAILY cefdinir 300 MG capsule 300 mg PO Q12H Qty: 10 0RF doxycycline monohydrate 100 mg capsule 100 mg PO BID Qty: 20 0RF cephalexin [cephalexin] 500 mg capsule 500 mg PO Q6 Qty: 40 0RF hydrochlorothiazide 25 mg tablet 25 mg PO DAILY Qty: 20 0RF Primary Care Provider: Scotty Spaulding Referrals: Scotty Spaulding MD [Primary Care Provider] - 3-5 Days Activity Restrictions/Additional Instructions: Please follow-up with your PCP and return for any worsening of symptoms. Take antibiotic as prescribed. Disposition Disposition: Home, Self Care Discharge Date/Time: 10/27/22 17:51
[2022-10-27 15:14] LABS: ALB/GLOB Ratio 0.9 RATIO (0.9-2.4); AST(SGOT) 15 U/L (15-37); Alanine Aminotransfer ALT/SGPT 26 U/L (16-61); Albumin, Serum 3.5 g/dL (3.2-5.0); Alkaline Phosphatase 64 U/L (45-117); Anion Gap 7 (5-15); BUN 19 mg/dL (7-18); BUN/Creat Ratio 14.2 RATIO (10-20); Calcium,Total 9.4 mg/dL (8.5-10.1); Chloride 106 mmol/L (98-107); Creatinine, Serum 1.34 mg/dL (0.70-1.30); EST Glomerular Filtration Rate 55 mL/min (>60); Est Glom Filt Rate - Afr Amer 67 mL/min (>60); Estimated Creatinine Clearance 57.08 ml/min; Globulin 3.7 g/dL (2.2-4.2); Glucose 133 mg/dL (74-106); Potassium 3.5 mmol/L (3.5-5.1); Protein, Total 7.2 g/dL (6.4-8.2); Sodium Level 143 mmol/L (136-145)
[2022-10-27 17:01] LABS: Mucous, Urine 0 SEEN /hpf (<or=2+)
[2022-10-27 17:03] LABS: Color, Urine Yellow (Yellow); Glucose, Dipstick Normal (Normal); Ketone-Dipstick Negative (Negative); Leukocyte Esterase-Dipstick 500 /ul (Negative); Nitrite-Dipstick Positive (Negative); Occult Blood-Urine 250 /ul (Negative); Protein-Dipstick 100 mg/dl (Negative); Specific Gravity, Urine 1.015 (1.002-1.030); Urine Bilirubin Dipstick Negative (Negative); Urine Clarity Sl. Cloudy (Clear); Urine Urobilinogen Normal (Normal)
[2022-10-27 17:14] LABS: Bacteria 1+ /hpf (None Seen); Hyaline Cast 0-5 SEEN /lpf (0-5); Red Blood Cells-Urine 25-50 SEEN /hpf (0-5); Squamous Epithelial Cells - UA 0-5 SEEN /hpf (0-5); White Blood Cells 25-50 SEEN /hpf (0-5)
[2022-10-27] MEDS: Smz/Tmp Ds Tablet 1 TABLET PO (17:49)
== END 2022-10-27 17:51 | disposition home or self-care (01) ==
PROVIDERS: Physician Assistant; Emergency Provider Emergency Medicine; PCP Family Medicine; Visit Provider Emergency Medicine
DX: N13.6 Pyonephrosis (principal); E11.9 Type 2 diabetes mellitus without complications; N40.0 Benign prostatic hyperplasia without lower urinary tract symptoms; I10 Essential (primary) hypertension; R31.9 Hematuria, unspecified; Z87.891 Personal history of nicotine dependence
CPT/HCPCS: 74176; 80048; 80053; 81001; 99283; A4216

== ENCOUNTER 2022-11-26 12:44 | Emergency (ER) | payer MEDICARE, SELFPAY ==
[2022-11-26 12:45] VITALS: BP 160/80; PULSE 93; RESP 14; TEMP 36.1; O2SAT 95; BMI 42.5
--- NOTE | 2022-11-26 12:57 | EKG12_ITS ---
Test Reason : DIZZY Blood Pressure : / mmHG Vent. Rate : 085 BPM Atrial Rate : 085 BPM P-R Int : 200 ms QRS Dur : 098 ms QT Int : 390 ms P-R-T Axes : 000 -25 056 degrees QTc Int : 464 ms Normal sinus rhythm Normal ECG Confirmed by ADAMS GRANADOS, MARIE ([id number]), assignment editor KEVEN SALAZAR ([id number]) on 12/21/2022 2:14:48 PM Referred By: Confirmed By:TOD LAMAS MD
--- NOTE | 2022-11-26 13:04 | CT_ITS ---
INDICATION: Vertigo EXAMINATION: CT BRAIN - CT Head or Brain W/O Contrast Injection TECHNIQUE: Multiple axial images were obtained of the head without intravenous contrast. A radiation dose optimization technique was used for this scan. IV Contrast dosage and agent: None. RADIATION DOSAGE (If Supplied By Facility): CTDIvol = ( 44.99 ) mGy, DLP = ( 779.24 ) mGycm COMPARISON: No prior examinations are available for comparison. FINDINGS: BRAIN PARENCHYMA: No intra- or extra-axial hemorrhage. No evidence of acute infarct. No intracranial mass or mass effect. There is preservation of the hunter/white matter interface. Posterior fossa structures are unremarkable. CSF SPACES: Appropriate for age. No hydrocephalus. Basal cisterns are patent. CALVARIUM, SKULL BASE, PARANASAL SINUSES AND MASTOID AIR CELLS: Mild loss of aeration of the right mastoid air cells. No discrete lytic or blastic abnormalities. ORBITS: Both globes, extraocular muscles, optic nerves and retrobulbar fat appear unremarkable. ASPECTS Score for Acute Strokes: 10 CT/Brain/Head without Contrast IMPRESSION: 1. No acute intracranial process. 2. Mild loss of aeration of the right mastoid air cells. Electronically Signed: David Ortez MD at 14:18 EDT ,
--- NOTE | 2022-11-26 13:06 | EX.ED.DYSGE1 ---
HPI History of Present Illness Chief Complaint: Dizziness Narrative Narrative: 72-year-old male past medical history of diabetes type 2, hypertension, presents with vertiginous type symptoms that he has had starting yesterday. He states that around 3 or 4 PM, approximately 21 hours ago, he turned his head, and became dizzy and lightheaded. The room was spinning more. It resolved rather quickly. This morning, when he woke up at 10 AM, 3 hours ago, states he walked to the bathroom and felt very vertiginous. As he was coming back to the bedroom, he vomited without any blood in his emesis. He denies any headache, no chest pain or shortness of breath, no paresthesias of of his arms or legs, no other symptoms. It seems that whenever he tries to stand or turn his head to the left he gets very vertiginous and sick. He called EMS because he is unable to ambulate because of the dizziness. He denies any dysuria or hematuria, no other symptoms. [facility] Medical History Benign prostatic hyperplasia Former tobacco use GERD (gastroesophageal reflux disease) Hyperlipidemia Hypertension Morbid obesity Type 2 diabetes mellitus Home Medications cholecalciferol (vitamin D3) 25 mcg (1,000 unit) tablet (Vitamin D3) 2,000 unit PO DAILY SUPPLEMENT 04/19/14 [History Last Taken Unknown] potassium chloride 20 mEq tablet,extended release(part/cryst) (Klor-Con M) 40 meq PO BID POTASSIUM 04/19/14 [History Last Taken Unknown] amlodipine 10 mg tablet 10 mg PO DAILY BP 11/20/19 [History Last Taken Unknown] gabapentin 300 mg capsule 300 mg PO BID NERVE PAIN 11/20/19 [History Last Taken Unknown] hydrochlorothiazide 25 mg tablet 25 mg PO DAILY BP 11/20/19 [History Last Taken Unknown] oxycodone-acetaminophen 5 mg-325 mg tablet 1 tab PO BID PRN Not Specified 11/20/19 [History Last Taken Unknown] pantoprazole 40 mg tablet,delayed release 40 mg PO DAILY GERD 11/20/19 [History Last Taken Unknown] metformin 500 mg tablet,extended release 24 hr 500 mg PO DAILY diabetes 11/21/19 [History Last Taken 11/20/19] hydrochlorothiazide 25 mg tablet 25 mg PO DAILY #20 tabs 08/30/22 [Rx Last Taken Unknown] cephalexin 500 mg capsule 500 mg PO Q12 #14 CAPSULES 11/26/22 [Rx Last Taken Unknown] meclizine 25 mg tablet 25 mg PO 4X/DAY PRN PRN Dizziness #20 tabs 11/26/22 [Rx Last Taken Unknown] meloxicam 15 mg tablet 15 mg PO DAILY 11/26/22 [History Last Taken Unknown] Allergy/AdvReac Type Severity Reaction Status Date / Time iodine Allergy Anaphylaxis Verified 11/26/22 12:45 aspirin AdvReac Nausea/Vom/ Verified 11/26/22 12:45 Diarrhea Family History Father Pancreatic cancer Sister Pancreatic cancer Brother Diabetes Cancer Hypertension Mother CVA (cerebral vascular accident) Heart disease Diabetes Cancer Surgical History History of knee surgery S/P appendectomy S/P cholecystectomy S/P total knee arthroplasty Social History household members: spouse Smoking Status: Former smoker how long ago did patient quit smoking: Quit 04/02/2005, smoked 1 ppd x 30 years. alcohol intake: never substance use type: does not use ROS ROS ED ROS Narrative Constitutional: No fever, no chills. HEENT: No sore throat. No neck pain. No loss of vision. No rhinorrhea. Cardiovascular: No chest pain. No palpitations. No pedal edema. Respiratory: No cough, no shortness of breath. Abdominal: No abdominal pain. No nausea. No vomiting. Genitourinary: No dysuria. No hematuria. Musculoskeletal: No myalgias. No arthralgias. Neurologic: No headaches. Positive dizziness. Worse with standing and moving head towards the left. No lightheadedness. No paresthesias. Skin: No rash. No change in color. Psychiatric: No depression. No anxiety. EXAM Physical Exam Narrative Exam Narrative: Afebrile. Vital signs noted. HEENT: Normocephalic. Atraumatic. PERRL, EOMI. Neck soft and supple. No point tenderness or step off. Cardiovascular: Regular rate and rhythm. No murmurs, rubs, or gallops appreciated. Respiratory: No tachypnea. Lungs clear to auscultation bilaterally. Gastrointestinal: Abdomen soft, nontender, with normoactive bowel sounds. No rebound or guarding. Neurological: Awake. Alert. Nonfocal, nonlateralizing. Cerebellar functioning normal as tested. No nystagmus. Positive dizziness with turning head to left. Skin: No rash. Normal color. No pallor. Musculoskeletal: No pedal edema. Full range of motion extremities. Const Vital Signs: 11/26/22 12:45 11/26/22 13:14 11/26/22 13:21 Temperature 96.9 F L Temperature Source Temporal Pulse Rate 93 Pulse Rate [Lying] 75 Pulse Rate [Sitting (for 1 minute prior to obtaining)] 82 Respiratory Rate 14 Respiratory Pattern Normal Blood Pressure 160/80 H Blood Pressure [Lying] 127/80 H Blood Pressure [Sitting (for 1 minute prior to obtaining)] 138/78 H Blood Pressure Mean 106 Blood Pressure Mean [Lying] 95 Blood Pressure Mean [Sitting (for 1 minute prior to obtaining)] 98 Pulse Ox 95 Oxygen Delivery Method Room Air 11/26/22 15:22 Temperature Temperature Source Pulse Rate 75 Pulse Rate [Lying] Pulse Rate [Sitting (for 1 minute prior to obtaining)] Respiratory Rate 14 Respiratory Pattern Blood Pressure 124/76 H Blood Pressure [Lying] Blood Pressure [Sitting (for 1 minute prior to obtaining)] Blood Pressure Mean 92 Blood Pressure Mean [Lying] Blood Pressure Mean [Sitting (for 1 minute prior to obtaining)] Pulse Ox 94 Oxygen Delivery Method Room Air MDM MDM MDM Narrative Medical decision making narrative: In the differential diagnosis for dizziness is positional vertigo versus orthostatic hypotension versus cerebellar stroke. I have less concern for central vertigo based on his physical examination. CT of the brain will be obtained along with EKG to look for ischemic disease as a cause of his dizziness and vertigo. EKG was obtained and interpreted by myself independently as normal sinus rhythm at 85 bpm without ectopy or acute ST changes. No STEMI. Orthostatics will also be checked but he will be bolused normal saline. If he has a negative CT he will be given meclizine. I reviewed his laboratory work from today and he has a normal white count of 8.3, hemoglobin normal at 14.6, hematocrit 45.1, platelet count normal at 224. Sodium is normal at 141 with a potassium low at 3.3. He used to be on a water pill and does take potassium supplementation at home. He was administered 40 mill equivalents orally here in the emergency department. He has slightly elevated BUN of 22 with a creatinine of 1.45. After 500 mL of IV fluids he states his dizziness was improved. While glucose is elevated at 177 consistent with his diabetes, he has a normal anion gap of 8 and I do not have concern for HON K or diabetic ketoacidosis. CT of the brain shows no acute intracranial process. As his vertigo has essentially resolved, he was still given the meclizine, but was able to ambulate with a steady gait prior to this. He feels improved. He did note that he had a UTI when he was seen in the emergency department last month. Given his weakness and dizziness, I did check a UA again today and he has 50-100 WBCs. There is 2+ bacteria. Urine culture will be sent as he had a recent UTI. In review of his prior ED visit, he had been discharged on Bactrim. He feels that it was ineffective in treating his UTI although this may be more of a chronic issue. He will be started on Keflex and given his first dose here in the emergency department and a prescription written for the next week. He does not want to be admitted and feels improved. I do not feel that he requires observation. I feel he can be discharged safely home with follow-up to his primary care provider. Return instructions to the emergency department were reviewed. Disposition is discharged home in stable condition. History & Record Review Discussion w/independent historian: Patient and Family Additional record(s) reviewed:: Prior ED visit and Prior labs Lab Data Attestation: I reviewed the patient's lab results. Labs: Laboratory Results - last 24 hr 11/26/22 11/26/22 12:52 15:08 WBC 8.3 RBC 5.00 Hgb 14.6 Hct 45.1 MCV 90.2 MCH 29.2 MCHC 32.4 RDW Std Deviation 45.0 H RDW Coeff of Tish 13.4 Plt Count 224 MPV 9.8 Immature Gran % (Auto) 0.400 Neut % (Auto) 69.3 Lymph % (Auto) 19.5 [place] % (Auto) 8.2 Eos % (Auto) 2.1 Baso % (Auto) 0.5 Absolute Neuts (auto) 5.7 Absolute Lymphs (auto) 1.61 Nucleated RBC % 0 Sodium 141 Potassium 3.3 L Chloride 106 Carbon Dioxide 27.0 Anion Gap 8 BUN 22 H Creatinine 1.45 H Estim Creat Clear Calc 51.97 Est GFR (MDRD) Af Amer 61 Est GFR (MDRD) Non-Af 51 L BUN/Creatinine Ratio 15.2 Glucose 177 H Calcium 9.2 Total Bilirubin 0.60 AST 19 ALT 26 Alkaline Phosphatase 73 Troponin I High Sens 12 Total Protein 7.4 Albumin 3.6 Globulin 3.8 Albumin/Globulin Ratio 0.9 Urine Color Yellow Urine Clarity Clear Urine pH 6.0 Ur Specific [place] 1.015 Urine Protein 30 H Urine Glucose (UA) Normal Urine Ketones Negative Urine Occult Blood 250 H Urine Nitrite Positive H Urine Bilirubin Negative Urine Urobilinogen Normal Ur Leukocyte Esterase 500 H Urine RBC 0 SEEN Urine WBC 50-100 SEEN Ur Squamous Epith Cells 0 SEEN Urine Bacteria 2+ Urine Mucus 0 SEEN Radiography Diagnostic Testing: Clinical Impression(s) from Imaging Studies Brain CT 11/26/22 13:04 IMPRESSION: 1. No acute intracranial process. 2. Mild loss of aeration of the right mastoid air cells. Electronically Signed: David Ortez MD at 14:18 EDT , Discharge Plan Triage Chief Complaint: Dizziness ED Provider: Tomy Justice Dx/Rx/DC Orders Clinical Impression: Vertigo, UTI (urinary tract infection), Hypokalemia Instructions: Urinary Tract Infections in Men, ED Hypokalemia, ED Vertigo, Unspecified Prescriptions: New meclizine 25 mg tablet 25 mg PO 4X/DAY PRN PRN (Reason: Dizziness) Qty: 20 0RF cephalexin 500 mg capsule 500 mg PO Q12 Qty: 14 0RF No Action potassium chloride [Klor-Con M20] 20 MEQ tablet 40 meq PO BID Patient Comments: potassium supplement cholecalciferol (vitamin D3) [Vitamin D3] 1,000 UNIT tablet 2,000 unit PO DAILY Patient Comments: supplement amlodipine 10 MG tablet 10 mg PO DAILY gabapentin 300 MG capsule 300 mg PO BID oxycodone-acetaminophen 1 TABLET tablet 1 tab PO BID PRN (Reason: Not Specified) Patient Comments: pain medication pantoprazole 40 MG tablet 40 mg PO DAILY hydrochlorothiazide 25 MG tablet 25 mg PO DAILY metformin 500 MG tablet 500 mg PO DAILY hydrochlorothiazide 25 mg tablet 25 mg PO DAILY Qty: 20 0RF meloxicam 15 mg tablet 15 mg PO DAILY Patient Comments: TAKE 1 TABLET BY MOUTH EVERY DAY Primary Care Provider: Scotty Spaulding Referrals: Scotty Spaulding MD [Primary Care Provider] - 3-5 Days if not improving Disposition Disposition: Home, Self Care
[2022-11-26 13:13] LABS: Absolute Lymphocyte Count 1.61 X10^3/uL (0.83-4.51); Absolute Neutrophil Count 5.7 X10^3/uL (2.0-7.7); Basophil# 0.04 X10^3/uL; Basophil% 0.5 % (0-1); Eosinophil# 0.17 X10^3/uL; Eosinophils% 2.1 % (0-5); Hematocrit 45.1 % (40-54); Hemoglobin 14.6 g/dL (13.0-16.5); Lymphocyte # 1.61 X10^3/ul (0.83-4.51); Lymphocyte % 19.5 % (19-41); Mean Corp Hgb Conc 32.4 g/dL (32-36); Mean Corpuscular Hgb 29.2 pg (27.0-32.0); Mean Corpuscular Volume 90.2 fL (80-94); Mean Platelet Vol. 9.8 fl (6.2-12.0); Monocyte# 0.68 X10^3/uL; Monocyte% 8.2 % (0-10); NRBC Flagged by Analyzer 0 % (0-5); Neutrophil # 5.72 X10^3/uL (2.7-7.7); Neutrophil % 69.3 % (47-70); Platelet Count 224 K/mm3 (150-450); RBC Distribution Width CV 13.4 % (11.6-14.6); White Blood Count 8.3 K/mm3 (4.4-11.0)
[2022-11-26 13:21] VITALS: BP 127/80; BP 138/78; PULSE 75; PULSE 82
[2022-11-26] MEDS: 0.9% Normal Saline 1,000 ML 1000 ML IV (13:22)
[2022-11-26 13:25] LABS: ALB/GLOB Ratio 0.9 RATIO (0.9-2.4); AST(SGOT) 19 U/L (15-37); Alanine Aminotransfer ALT/SGPT 26 U/L (16-61); Albumin, Serum 3.6 g/dL (3.2-5.0); Alkaline Phosphatase 73 U/L (45-117); Anion Gap 8 (5-15); BUN 22 mg/dL (7-18); BUN/Creat Ratio 15.2 RATIO (10-20); Calcium,Total 9.2 mg/dL (8.5-10.1); Chloride 106 mmol/L (98-107); Creatinine, Serum 1.45 mg/dL (0.70-1.30); EST Glomerular Filtration Rate 51 mL/min (>60); Est Glom Filt Rate - Afr Amer 61 mL/min (>60); Estimated Creatinine Clearance 51.97 ml/min; Globulin 3.8 g/dL (2.2-4.2); Glucose 177 mg/dL (74-106); Potassium 3.3 mmol/L (3.5-5.1); Protein, Total 7.4 g/dL (6.4-8.2); Sodium Level 141 mmol/L (136-145); Troponin-I HS 12 pg/mL (3.0-78.0)
[2022-11-26] MEDS: Meclizine HCl 25 MG Tablet PO (14:54)
[2022-11-26] MEDS: Potassium Chloride Oral Tablet 20 MEQ 40 MEQ PO (14:54)
[2022-11-26 15:16] LABS: Mucous, Urine 0 SEEN /hpf (<or=2+); Red Blood Cells-Urine 0 SEEN /hpf (0-5); Squamous Epithelial Cells - UA 0 SEEN /hpf (0-5)
[2022-11-26 15:22] VITALS: BP 124/76; PULSE 75; RESP 14; O2SAT 94
[2022-11-26 15:27] LABS: Color, Urine Yellow (Yellow); Glucose, Dipstick Normal (Normal); Ketone-Dipstick Negative (Negative); Leukocyte Esterase-Dipstick 500 /ul (Negative); Nitrite-Dipstick Positive (Negative); Occult Blood-Urine 250 /ul (Negative); Protein-Dipstick 30 mg/dl (Negative); Specific Gravity, Urine 1.015 (1.002-1.030); Urine Bilirubin Dipstick Negative (Negative); Urine Clarity Clear (Clear); Urine Urobilinogen Normal (Normal)
[2022-11-26 15:35] LABS: Bacteria 2+ /hpf (None Seen); White Blood Cells 50-100 SEEN /hpf (0-5)
[2022-11-26] MEDS: Cephalexin 250 MG Capsule 500 MG PO (16:02)
== END 2022-11-26 16:19 | disposition home or self-care (01) ==
PROVIDERS: Emergency Provider Emergency Medicine; PCP Family Medicine; Visit Provider Emergency Medicine
DX: R42 Dizziness and giddiness (principal); E11.9 Type 2 diabetes mellitus without complications; N39.0 Urinary tract infection, site not specified; E87.6 Hypokalemia; I10 Essential (primary) hypertension; K21.9 Gastro-esophageal reflux disease without esophagitis; Z79.899 Other long term (current) drug therapy; Z79.84 Long term (current) use of oral hypoglycemic drugs; Z87.891 Personal history of nicotine dependence
CPT/HCPCS: 70450; 80053; 81001; 84484; 85025; 87077; 87086; 87088; 87186; 93005; 96360; 96361; 99285; A4216

== ENCOUNTER 2023-10-14 23:21 | Inpatient (IN) | payer MEDICARE, SELFPAY ==
[2023-10-14 23:22] VITALS: BP 173/102; PULSE 123; RESP 23; O2SAT 95
[2023-10-14 23:23] VITALS: PULSE 125; TEMP 36.8; O2SAT 93; BMI 44.4
[2023-10-14 23:36] VITALS: BP 182/87; PULSE 118; RESP 27; O2SAT 93
[2023-10-14 23:43] LABS: Bedside Glucose 183 mg/dL (74-106)
[2023-10-15] VITALS (16 sets, daily range): BP systolic 95–145; BP diastolic 63–99; PULSE 94–124; RESP 16–28; TEMP 36.1–37.2; O2SAT 85–100; BMI 48.2
--- NOTE | 2023-10-15 00:11 | EKG12_ITS ---
Test Reason : DYSRHYTHMIA Blood Pressure : / mmHG Vent. Rate : 121 BPM Atrial Rate : 121 BPM P-R Int : 170 ms QRS Dur : 126 ms QT Int : 296 ms P-R-T Axes : 000 -38 080 degrees QTc Int : 420 ms LIKELY, Sinus tachycardia Left axis deviation Possible Lateral infarct , age undetermined Abnormal ECG BORDERLINE ARTIFACT Confirmed by ADAMS GRANADOS, MARIE ([id number]), photographic editor KEVEN SALAZAR ([id number]) on 10/17/2023 9:53:00 AM Referred By: AMADEO Confirmed By:TOD LAMAS MD
[2023-10-15] MEDS: Ondansetron 4 MG/2 ML Vial IV (00:27)
[2023-10-15] MEDS: Morphine 4 MG/ML Syringe IV (00:30)
[2023-10-15] MEDS: 0.9% Normal Saline (1000mL) 1,000 ML 1000 ML IV (00:33)
[2023-10-15 00:58] LABS: AST(SGOT) 27 U/L (15-37); Alanine Aminotransfer ALT/SGPT 41 U/L (16-61); Albumin, Serum 3.4 g/dL (3.2-5.0); Alkaline Phosphatase 87 U/L (45-117); Anion Gap 8 (5-15); BUN 23 mg/dL (7-18); BUN/Creat Ratio 13.9 RATIO (10-20); Bilirubin, Direct 0.23 mg/dL (0.00-0.30); Calcium,Total 8.8 mg/dL (8.5-10.1); Chloride 106 mmol/L (98-107); Creatinine, Serum 1.65 mg/dL (0.70-1.30); EST Glomerular Filtration Rate 43 mL/min (>60); Est Glom Filt Rate - Afr Amer 53 mL/min (>60); Estimated Creatinine Clearance 62.31 ml/min; Globulin 3.8 g/dL (2.2-4.2); Glucose 165 mg/dL (74-106); Lipase 37 U/L (13-75); Potassium 3.5 mmol/L (3.5-5.1); Protein, Total 7.2 g/dL (6.4-8.2); Sodium Level 142 mmol/L (136-145)
[2023-10-15 01:00] LABS: International Normalized Ratio 1.1; Prothrombin Time (Protime)PT. 13.8 SECONDS (11.7-14.9)
[2023-10-15 01:01] LABS: Partial Thromboplast Time 24.5 Seconds (24.1-36.2)
[2023-10-15 01:03] LABS: Lactic Acid 4.6 mmol/L (0.4-1.9)
[2023-10-15 01:06] LABS: Absolute Lymphocyte Count 0.76 X10^3/uL (0.83-4.51); Absolute Neutrophil Count 1.8 X10^3/uL (2.0-7.7); Basophil# 0.01 X10^3/uL; Basophil% 0.4 % (0-1); Eosinophil# 0.03 X10^3/uL; Eosinophils% 1.1 % (0-5); Hematocrit 45.8 % (40-54); Hemoglobin 14.5 g/dL (13.0-16.5); Lymphocyte # 0.76 X10^3/ul (0.83-4.51); Lymphocyte % 28.3 % (19-41); Mean Corp Hgb Conc 31.7 g/dL (32-36); Mean Corpuscular Hgb 29.1 pg (27.0-32.0); Mean Corpuscular Volume 91.8 fL (80-94); Mean Platelet Vol. 10.3 fl (6.2-12.0); Monocyte# 0.03 X10^3/uL; Monocyte% 1.1 % (0-10); NRBC Flagged by Analyzer 0 % (0-5); Neutrophil # 1.81 X10^3/uL (2.7-7.7); Neutrophil % 67.2 % (47-70); Platelet Count 200 K/mm3 (150-450); RBC Distribution Width CV 13.3 % (11.6-14.6); RBC Distribution Width SD 45.1 fl (35.1-43.9); Red Blood Count 4.99 M/mm3 (4.6-6.2); White Blood Count 2.7 K/mm3 (4.4-11.0)
--- NOTE | 2023-10-15 01:14 | CT_ITS ---
EXAM: CT Abdomen And Pelvis W/O Contrast Injection HISTORY: abdominal pain shaking since 9pm, nausea, fever, chills, sob TECHNIQUE: Routine protocol CT abdomen and pelvis. IV Contrast: None.. Oral contrast: None. RADIATION DOSAGE (If Supplied By Facility): CTDIvol = ( 33.31 ) mGy, DLP = ( 1939.19 ) mGycm Individualized dose optimization techniques were used for this CT. COMPARISON: CT abdomen and pelvis 10/27/2022. LIMITATIONS: None. FINDINGS: LOWER CHEST: Dependent atelectasis in the lung bases. Coronary artery calcifications are noted. LIVER: Fatty infiltration. GALLBLADDER AND BILIARY TREE: Presumed contracted gallbladder with a small stone. PANCREAS: Grossly unremarkable. SPLEEN: Grossly unremarkable. ADRENAL GLANDS: Left adrenal nodule 1.4 cm appears slightly larger compared to the prior of this may be due to the degree of motion. Nodular thickening of both adrenals. KIDNEYS AND URETERS: Small calculus in the right kidney. No hydronephrosis. Several small cysts in both kidneys, unchanged no follow-up needed. Perinephric stranding bilaterally, is similar to prior. PERITONEUM: No free air. No free fluid. BOWEL: No bowel obstruction. APPENDIX: Not identified. VESSELS: Abdominal aorta is normal caliber. REPRODUCTIVE ORGANS: Grossly unremarkable URINARY BLADDER: Grossly unremarkable. ABDOMINAL WALL: Unremarkable. BONES: No acute abnormalities. Degenerative changes lumbar spine. CT/Abdomen/Pelvis without Cont IMPRESSION: No acute findings. Bilateral perinephric stranding is likely chronic and similar to prior study. Acute process such as pyelonephritis is difficult to exclude. Likely contracted gallbladder with cholelithiasis. Electronically Signed: Lesley Campos MD at 2:57 EDT ,
[2023-10-15] MEDS: 0.9% Normal Saline (1000mL) 1,000 ML 999 ML IV (01:25)
--- NOTE | 2023-10-15 01:50 | RAD_ITS ---
INDICATION: hypertension EXAMINATION/TECHNIQUE: X-RAY - XR Chest 1 View AP portable. 1:53 AM COMPARISON: 11/20/2019 FINDINGS: LINES/DEVICES: None. LUNGS: No consolidation. Suboptimal assessment of the lung bases due to positioning and body habitus. No pneumothorax. MEDIASTINUM: Unremarkable. CARDIAC SILHOUETTE: Not enlarged. BONES AND SOFT TISSUES: No acute abnormalities. RAD/Chest 1 View (Portable) IMPRESSION: No definite acute findings Electronically Signed: Lesley Campos MD at 2:59 EDT ,
[2023-10-15 02:45] LABS: Mucous, Urine 0 SEEN /hpf (<or=2+)
[2023-10-15 02:48] LABS: Color, Urine Yellow (Yellow); Glucose, Dipstick Normal (Normal); Ketone-Dipstick Negative (Negative); Leukocyte Esterase-Dipstick 500 /ul (Negative); Nitrite-Dipstick Positive (Negative); Occult Blood-Urine 150 /ul (Negative); Protein-Dipstick 30 mg/dl (Negative); Urine Bilirubin Dipstick Negative (Negative); Urine Clarity Sl. Cloudy (Clear); Urine Urobilinogen Normal (Normal)
[2023-10-15 03:21] LABS: Red Blood Cells-Urine 10-25 SEEN /hpf (0-5); White Blood Cells 10-25 SEEN /hpf (0-5)
[2023-10-15 03:22] LABS: Bacteria 4+ /hpf (None Seen); Squamous Epithelial Cells - UA 0-5 SEEN /hpf (0-5)
[2023-10-15] MEDS: 0.9% Normal Saline (1000mL) 1,000 ML 150 ML IV ×2 (03:22→14:20)
--- NOTE | 2023-10-15 03:41 | HP.PCM.HOS_ITS ---
HPI - General General Date of Admission: 10/15/23 Date of Service: 10/15/23 Chief Complaint: Chills, nausea, emesis. HPI Narrative The patient is a 72 y/o M w/ PMHx: Morbid obesity, HTN, HLD, Former tobacco use, GERD, BPH, Diabetes mellitus type II with chronic neuropathy who presents to the [facility] ED on 10/15/23 with history of chills, nausea, emesis that started approximately 9 PM on day of presentation with 2 to 3 days of reported foul- smelling urine but no specifically associated dysuria, urgency, frequency or retention prompting eventual ED evaluation. He does follow with a urologist outside of [place]. He does state that he commonly gets urinary tract infections and was treated within the last month. Workup in the ED included T98.3, heart rate 123, BP 173/102, respiratory rate 23, 95% on room air however desaturated down to 87%, most recent repeat vital signs T98.8, heart rate 121, BP 126/74, respiratory rate 24, 97% on 2 L nasal cannula, CBC with WC 2.7, human 14.5, platelet 200 with increased immature granulocytes with ANC 1.8 and lymphopenia, unremarkable coags, CMP with BUN/creatinine 23/1.65, GFR 43, glucose 165, lactic acid 4.6, unremarkable hepatic profile, rapid SARS COVID/influenza/RSV PCR negative, CT abdomen and pelvis with no acute findings with bilateral perinephric stranding that is likely chronic and similar to prior studies, likely contracted gallbladder with cholelithiasis, chest x-ray with no acute cardiopulmonary findings, UA with cloudy appearing urine, protein 30, occult blood 150, positive nitrate, leukocyte esterase 500, urine RBCs 10-25, urine to BCs 10-25, 4+ urine bacteria, urine culture pending per ED, blood culture x 2 pending per ED, EKG with sinus tachycardia but poor EKG secondary to movements during procedure. In the ED patient was IV fluid resuscitated per sepsis protocol with 2 L normal saline and continue maintenance IV fluids administered, additionally patient received Zofran 4 mg IV x 1, morphine 4 mg IV x 1 and Rocephin 1 g IV x 1. [facility] Medical History GERD (gastroesophageal reflux disease) Morbid obesity Former tobacco use Hyperlipidemia Type 2 diabetes mellitus Hypertension Benign prostatic hyperplasia Home Medications ?Medication ?Instructions ?Recorded ?Last Taken ?Type cholecalciferol (vitamin D3) 25 2,000 unit PO DAILY SUPPLEMENT 04/19/14 Unknown History mcg (1,000 unit) tablet (Vitamin D3) potassium chloride 20 mEq 40 meq PO BID POTASSIUM 04/19/14 Unknown History tablet,extended release(part/cryst) (Klor-Con M) amlodipine 10 mg tablet 10 mg PO DAILY BP 11/20/19 Unknown History hydrochlorothiazide 25 mg tablet 25 mg PO DAILY BP 11/20/19 Unknown History oxycodone-acetaminophen 5 mg-325 1 tab PO BID PRN Not Specified 11/20/19 Unknown History mg tablet pantoprazole 40 mg tablet,delayed 40 mg PO DAILY GERD 11/20/19 Unknown History release metformin 500 mg tablet,extended 500 mg PO DAILY diabetes 11/21/19 11/20/19 History release 24 hr hydrochlorothiazide 25 mg tablet 25 mg PO DAILY #20 tabs 08/30/22 Unknown Rx meloxicam 15 mg tablet 15 mg PO DAILY 11/26/22 Unknown History amitriptyline 10 mg tablet 10 mg PO QHS 10/14/23 Unknown History atorvastatin 20 mg tablet 20 mg PO QHS cholesterol 10/14/23 Unknown History gabapentin 600 mg tablet 600 mg PO TID 10/14/23 Unknown History solifenacin 5 mg tablet 5 mg PO DAILY 10/14/23 Unknown History vitamin A-vitamin C-vit E-min 2 tab PO DAILY 10/14/23 Unknown History tablet (Ocutabs tablet) Allergy/AdvReac Type Severity Reaction Status Date / Time iodine Allergy Anaphylaxis Verified 10/14/23 23:23 aspirin AdvReac Nausea/Vom/ Verified 10/14/23 23:23 Diarrhea Family History Father Pancreatic cancer Sister Pancreatic cancer Brother Diabetes Cancer Hypertension Mother CVA (cerebral vascular accident) Heart disease Diabetes Cancer Surgical History History of knee surgery S/P cholecystectomy S/P total knee arthroplasty S/P appendectomy Social History household members: spouse Smoking Status: Former smoker how long ago did patient quit smoking: Quit 04/02/2005, smoked 1 ppd x 30 years. alcohol intake: never substance use type: does not use ROS ROS Narrative Admission Review of Systems: CONSTITUTIONAL: No weight loss, fever, + chills, weakness or fatigue. HEENT: Eyes: No visual loss, blurred vision, double vision or yellow sclerae. Ears, Nose, Throat: No hearing loss, sneezing, congestion, runny nose or sore throat. SKIN: No rash or itching, lesions, wounds except + chronic venous stasis disease skin changes. CARDIOVASCULAR: + Racing heart, chronic edema. No chest pain, chest pressure or chest discomfort, palpitations, orthopnea, syncopal events. RESPIRATORY: + Mild dyspnea. No recent cough, productive sputum, wheezing, hemoptysis. GASTROINTESTINAL: +Anorexia, nausea, vomiting. No diarrhea, abdominal pain, melena, BRBPR. GENITOURINARY: + Foul-smelling urine. No dysuria, frequency, urgency or retention. NEUROLOGICAL: No headache, dizziness, syncope, paralysis, ataxia, numbness or tingling in the extremities, focal weakness, change in bowel or bladder control, seizure. MUSCULOSKELETAL: + muscle, back pain, joint pain or stiffness. HEMATOLOGIC: No anemia, bleeding or bruising. LYMPHATICS: No enlarged nodes. No history of splenectomy. PSYCHIATRIC: No history of depression or anxiety. ENDOCRINOLOGIC: + reports of sweating, cold or heat intolerance. No polyuria or polydipsia. ALLERGIES: + History of anaphylaxis. Vital Signs Vital Signs Vital Signs: 10/14/23 23:22 10/14/23 23:23 10/14/23 23:27 Temperature 98.3 F Temperature Source Oral Pulse Rate 123 H 125 H Respiratory Rate 23 H Respiratory Effort Short of Breath Labored Respiratory Pattern Tachypnea Blood Pressure 173/102 H Blood Pressure Mean 125 Pulse Ox 95 93 Oxygen Delivery Method Room Air Room Air Oxygen Flow Rate (L/min) 10/14/23 23:36 10/14/23 23:40 10/15/23 00:37 Temperature Temperature Source Pulse Rate 118 H Respiratory Rate 27 H Respiratory Effort Short of Breath Labored Respiratory Pattern Tachypnea Blood Pressure 182/87 H Blood Pressure Mean 118 Pulse Ox 93 85 Oxygen Delivery Method Room Air Room Air Oxygen Flow Rate (L/min) 10/15/23 00:38 10/15/23 01:26 10/15/23 03:24 Temperature 98.8 F 98.3 F Temperature Source Oral Oral Pulse Rate 121 H 115 H Respiratory Rate 24 H 28 H Respiratory Effort Respiratory Pattern Blood Pressure 126/74 H 134/68 H Blood Pressure Mean 91 90 Pulse Ox 97 97 99 Oxygen Delivery Method Nasal Cannula Nasal Cannula Nasal Cannula Oxygen Flow Rate (L/min) 2 2 2 10/15/23 03:29 Temperature 98.3 F Temperature Source Oral Pulse Rate 116 H Respiratory Rate 27 H Respiratory Effort Respiratory Pattern Blood Pressure 134/68 H Blood Pressure Mean 90 Pulse Ox 98 Oxygen Delivery Method Nasal Cannula Oxygen Flow Rate (L/min) 2 Weight Weight: 346 lb 5.539 oz Body Mass Index (BMI) 44.4 Physical Exam Narrative Physical Examination: General: Awake, alert, oriented x 3 and cooperative, seated upright in the ED bed, fatigued, ill-appearing. Skin: Flushed color, normal turgor, no icterus, no cyanosis, bilateral lower extremity chronic venous stasis skin changes. HEENT: AT/NC, EOMI, PERRLA, dry MM, no carotid bruits or JVD noted; however, thickened neck makes evaluation difficult Lungs: Diminished, distant breath sounds likely secondary to habitus, mildly increased respiratory rate but no distress, no rales, ronchi or wheezing. Heart: Tachycardic with regular rhythm; no gallop, rub audible. Abdomen: Soft, morbidly obese, NTTP, no tenderness to palpation of the suprapubic region either, mildly hyperactive bowel sounds, difficult to discern distention and HSM given habitus. Extremities: No cyanosis, no clubbing, bilateral lower extremity ankle to mid wild 1+ pitting edema, chronic. Neurological: Patient awake, alert, oriented as noted, cognitive function intact; pupils equally reactive to light and accommodation, cranial nerves grossly normal, moving all 4 extremities, no focal deficits, strength moderately to severely globally decreased secondary to acute presentation. Psychiatric: Affect appears flat, fatigued, ill-appearing, no acute evidence of depressive or anxiety feelings. Results Lab / Micro Data 10/14/23 23:25 10/14/23 23:25 Labs: Laboratory Results - last 24 hr 10/14/23 23:25: WBC 2.7 L, RBC 4.99, Hgb 14.5, Hct 45.8, MCV 91.8, MCH 29.1, M CHC 31.7 L, RDW Std Deviation 45.1 H, RDW Coeff of Tish 13.3, Plt Count 200, MPV 10.3, Immature Gran % (Auto) 1.900 H, Neut % (Auto) 67.2, Lymph % (Auto) 28.3, [place] % (Auto) 1.1, Eos % (Auto) 1.1, Baso % (Auto) 0.4, Absolute Neuts (auto) 1.8 L, Absolute Lymphs (auto) 0.76 L, Nucleated RBC % 0, PT 13.8, INR 1.1, APTT 24.5, Sodium 142, Potassium 3.5, Chloride 106, Carbon Dioxide 28.0, Anion Gap 8, BUN 23 H, Creatinine 1.65 H, Estim Creat Clear Calc 62.31, Est GFR (MDRD) Af Amer 53 L, Est GFR (MDRD) Non-Af 43 L, BUN/Creatinine Ratio 13.9, Glucose 165 H, Lactic Acid 4.6 H*, Calcium 8.8, Total Bilirubin 0.60, Direct Bilirubin 0.23, AST 27, ALT 41, Alkaline Phosphatase 87, Total Protein 7.2, Albumin 3.4, Globulin 3.8, Lipase 37, POC Glucose 183 H 10/15/23 02:39: Urine Color Yellow, Urine Clarity Sl. Cloudy, Urine pH 8.0, Ur Specific [place] 1.010, Urine Protein 30 H, Urine Glucose (UA) Normal, Urine Ketones Negative, Urine Occult Blood 150 H, Urine Nitrite Positive H, Urine Bilirubin Negative, Urine Urobilinogen Normal, Ur Leukocyte Esterase 500 H, Urine RBC 10-25 SEEN, Urine WBC 10-25 SEEN, Ur Squamous Epith Cells 0-5 SEEN, Urine Bacteria 4+, Urine Mucus 0 SEEN Micro: Microbiology 10/15/23 00:18 Mucosa - Nose SARS-CoV-2, Influenza & RSV (PCR) - Final Imaging Radiology Impression Abdomen/Pelvis CT 10/15/23 01:14 IMPRESSION: No acute findings. Bilateral perinephric stranding is likely chronic and similar to prior study. Acute process such as pyelonephritis is difficult to exclude. Likely contracted gallbladder with cholelithiasis. Electronically Signed: Lesley Campos MD at 2:57 EDT , Chest X-Ray 10/15/23 01:50 IMPRESSION: No definite acute findings Electronically Signed: Lesley Campos MD at 2:59 EDT , Assessment & Plan Assessment/Plan (1) Urinary tract infection: PLAN: Plan The patient is a 72 y/o M w/ PMHx: Morbid obesity, HTN, HLD, Former tobacco use, GERD, BPH, Diabetes mellitus type II with chronic neuropathy who presents to the [facility] ED on 10/15/23 with history of chills, nausea, emesis that started approximately 9 PM on day of presentation. #1. Acute Complicated UTI with lactic acidosis complicated by neutropenia with ANC 1.8 of unclear significance (Not sepsis given no end organ damage): Will admit to PCU given significant tachycardia and lactic acidosis with his acute infectious presentation to be cautious, UA upon ED evaluation remarkable, pending UCx, continue IVFs, monitor I/Os, continue IV Rocephin based on prior urine cultures most recently noted 11/26/22 with greater than 100,000 Proteus Mirabella's which was pansensitive aside nitrofurantoin at that time w/ transition as able pending sensitivities and speciation. Bld cx x 2 obtained in the ED. #2. Mild Acute Renal Insufficiency on Chronic Kidney Disease Stage III, unclear subtype: Admission BUN/Cr 23/1.65, GFR 43, baseline renal function most recently 1.3-1.4 however this is nearly 1 year prior to current presentation, prior GFR most recently in the 50 range, repeat BMP in AM. #3. Hypertension: Continue home regimen including amlodipine, holding hydrochlorothiazide, PRN hydralazine. #4. Hyperlipidemia: We will continue patient on statin therapy. #5. Diabetes mellitus type II: Hold oral home regimen, ADA diet, accu checks w/ ISS. #6. Morbid Obesity: Weight loss and lifestyle changes encouraged. #7. Former tobacco use: Encourage continued tobacco cessation. #8. GERD: We will continue patient on PPI. #9. BPH: Per current list does not appear to be on regimen but clarifying. #10. DVT prophylaxis: Lovenox. #11. CODE status: Patient SILVIA is his significant and his daughter and living will is currently in place. Discussed CODE status at length including difference between FULL code, DNR-CCA and DNR-CC status. Following discussions about the differences in these status, requested Full Code status. Advanced Care Planning Face to Face Time: 16 minutes. Charges/Coding Visit Charges Inpatient E&M: 12107 Init Hosp L3 Procedures Hospitalists Procedures: 29808 Advncd Care Plan 30 Min
[2023-10-15 04:30] LABS: Reflex Lactate? Y
[2023-10-15] MEDS: Ceftriaxone 1 GM/50 ML BAG IV (04:30)
--- NOTE | 2023-10-15 05:06 | EX.ED.DYSGE1 ---
HPI History of Present Illness Chief Complaint: General Illness Informant: patient and family Narrative Narrative: 72-year-old male known diabetic with recent UTI presenting to the emergency room with chills and shaking. Patient was on antibiotic earlier this month and sees urology for the UTI in [place]. He notes an increase in back pain over the past month. He has had abdominal pain and is developed nausea vomiting once he arrived here in the emergency department. He notes chills but no fever. Family feels that he most likely has a urinary tract infection and has an appointment this week with his urologist. He has no known movement disorder and family notes that his hands are trembling. He notes a prior abdominal surgery from a slight right accident was a child in which my intestines came out of me and they made an incision over my appendix and put them back in and remove my appendix. [facility] Medical History GERD (gastroesophageal reflux disease) Morbid obesity Former tobacco use Hyperlipidemia Type 2 diabetes mellitus Hypertension Benign prostatic hyperplasia Home Medications ?Medication ?Instructions ?Recorded ?Last Taken ?Type cholecalciferol (vitamin D3) 25 2,000 unit PO DAILY SUPPLEMENT 04/19/14 Unknown History mcg (1,000 unit) tablet (Vitamin D3) potassium chloride 20 mEq 40 meq PO BID POTASSIUM 04/19/14 Unknown History tablet,extended release(part/cryst) (Klor-Con M) amlodipine 10 mg tablet 10 mg PO DAILY BP 11/20/19 Unknown History hydrochlorothiazide 25 mg tablet 25 mg PO DAILY BP 11/20/19 Unknown History oxycodone-acetaminophen 5 mg-325 1 tab PO BID PRN Not Specified 11/20/19 Unknown History mg tablet pantoprazole 40 mg tablet,delayed 40 mg PO DAILY GERD 11/20/19 Unknown History release metformin 500 mg tablet,extended 500 mg PO DAILY diabetes 11/21/19 11/20/19 History release 24 hr hydrochlorothiazide 25 mg tablet 25 mg PO DAILY #20 tabs 08/30/22 Unknown Rx meloxicam 15 mg tablet 15 mg PO DAILY 11/26/22 Unknown History amitriptyline 10 mg tablet 10 mg PO QHS 10/14/23 Unknown History atorvastatin 20 mg tablet 20 mg PO QHS cholesterol 10/14/23 Unknown History gabapentin 600 mg tablet 600 mg PO TID 10/14/23 Unknown History solifenacin 5 mg tablet 5 mg PO DAILY 10/14/23 Unknown History vitamin A-vitamin C-vit E-min 2 tab PO DAILY 10/14/23 Unknown History tablet (Ocutabs tablet) Allergy/AdvReac Type Severity Reaction Status Date / Time iodine Allergy Anaphylaxis Verified 10/14/23 23:23 aspirin AdvReac Nausea/Vom/ Verified 10/14/23 23:23 Diarrhea Family History Father Pancreatic cancer Sister Pancreatic cancer Brother Diabetes Cancer Hypertension Mother CVA (cerebral vascular accident) Heart disease Diabetes Cancer Surgical History History of knee surgery S/P cholecystectomy S/P total knee arthroplasty S/P appendectomy Social History household members: spouse Smoking Status: Former smoker how long ago did patient quit smoking: Quit 04/02/2005, smoked 1 ppd x 30 years. alcohol intake: never substance use type: does not use ROS ROS ED Constitutional Constitutional ED: Reports chills; Denies fever(s) or weight loss Eyes Eyes: Denies change in vision or diplopia ENT ENT ED: Denies ear pain, rhinorrhea or sore throat Cardiovascular Cardiovascular: Reports racing heartbeat; Denies chest pain, orthopnea or palpitations Respiratory/Chest Respiratory/Chest: Denies cough, dyspnea or orthopnea Gastrointestinal Gastrointestinal: Reports abdominal pain, nausea and vomiting; Denies diarrhea Genitourinary Genitourinary ED: Denies dysuria, hematuria or urinary frequency Musculoskeletal Musculoskeletal: Reports back pain; Denies arthralgias, myalgias or neck pain Integumentary Denies abscess or rash Neurologic Neurologic: Reports other Details: Intermittent tremors bilateral hands ; Denies headache(s) or weakness Psychiatric Psychiatric: Denies anxiety, depression, suicidal ideation or suicidal thoughts Endocrine Endocrinology: Denies polydipsia, polyphagia or polyuria Allergic/Immunologic Allergic/Immunologic ED: Denies mouth swelling, tongue swelling or urticaria EXAM Physical Exam Narrative Exam Narrative: Patient is vomiting Const Vital Signs: 10/14/23 23:22 10/14/23 23:23 10/14/23 23:27 Temperature 98.3 F Temperature Source Oral Pulse Rate 123 H 125 H Respiratory Rate 23 H Respiratory Effort Short of Breath Labored Respiratory Pattern Tachypnea Blood Pressure 173/102 H Blood Pressure Mean 125 Pulse Ox 95 93 Oxygen Delivery Method Room Air Room Air Oxygen Flow Rate (L/min) 10/14/23 23:36 10/14/23 23:40 10/15/23 00:37 Temperature Temperature Source Pulse Rate 118 H Respiratory Rate 27 H Respiratory Effort Short of Breath Labored Respiratory Pattern Tachypnea Blood Pressure 182/87 H Blood Pressure Mean 118 Pulse Ox 93 85 Oxygen Delivery Method Room Air Room Air Oxygen Flow Rate (L/min) 10/15/23 00:38 10/15/23 01:26 10/15/23 03:24 Temperature 98.8 F 98.3 F Temperature Source Oral Oral Pulse Rate 121 H 115 H Respiratory Rate 24 H 28 H Respiratory Effort Respiratory Pattern Blood Pressure 126/74 H 134/68 H Blood Pressure Mean 91 90 Pulse Ox 97 97 99 Oxygen Delivery Method Nasal Cannula Nasal Cannula Nasal Cannula Oxygen Flow Rate (L/min) 2 2 2 10/15/23 03:29 Temperature 98.3 F Temperature Source Oral Pulse Rate 116 H Respiratory Rate 27 H Respiratory Effort Respiratory Pattern Blood Pressure 134/68 H Blood Pressure Mean 90 Pulse Ox 98 Oxygen Delivery Method Nasal Cannula Oxygen Flow Rate (L/min) 2 Positive well nourished, well developed and obese General Appearance ED: well developed Nutritional Appearance: obese HEENT Reports normocephalic, head/scalp atraumatic and moist mucous membranes Eyes PERRL and EOMs intact bilaterally Neck no lymphadenopathy, supple and no JVD Resp normal respiratory effort and clear to auscultation bilaterally Cardio regular rate, regular rhythm and no murmurs Rate: tachycardic GI GI Narrative: Body habitus precludes confident examination Inspection: Negative for abdominal distention Auscultation: hypoactive bowel sounds Palpation: soft and tender; Negative for guarding or rebound tenderness present Back/Spine no CVA tenderness and normal ROM Extremity normal to inspection General Extremety ED: Negative for edema General Extremity: Negative for edema Neuro oriented x3 and CN's II-XII intact bilaterally Neuro Narrative: Patient is shaking his hands intermittently. Some point he does 4 fingers on the right hand and then switches to the left hand for fingers sometimes his whole right hand rocks [id number]. I do not feel that this is associated with a definitive neurologic tremor. Sensorium / Orientation: alert Motor Exam: strength 5/5 throughout Psych mental status grossly normal Mood & Affect: Negative for depressed or tearful Skin no rashes or lesions noted and no wounds MDM MDM MDM Narrative Medical decision making narrative: Differential diagnosis includes but not limited to pancreatitis bowel obstruction biliary disease volvulus ureterolithiasis kidney stone pyelonephritis colitis gastroenteritis cardiac dysrhythmia electrolyte disturbance dehydration White count comes back low at 2.7 hemoglobin 14.5 platelet count of 200 INR 1.1 PTT 24.5 creatinine 1.65 with a BUN of 23. Glucose 165. Lactic acid is elevated 4.6. Lactic acid may be somewhat inflated as he is on metformin and has had elevated lactic acids of minimal elevation in the past. Urinalysis demonstrates 10-25 white cells 10-25 red cells positive nitrates positive leukocyte Estrace 4+ bacteria. Blood and urine cultures were sent. Patient received IV fluids. 30 cc/kg was not ordered as this would be approaching 5 L for the patient and I do not feel that he needs 5 L. We have had no hypotension. He has not spiked a fever. After morphine he was requiring some supplemental oxygen. My independent interpretation of his chest x-ray is no acute process. CT of the abdomen pelvis was obtained. This demonstrates no obvious small bowel obstruction. There is some bilateral perinephric stranding which appears chronic as it has been seen on prior studies. Could there be a component of pyelonephritis I think this is possible. Patient received a dose of Rocephin. Our plan is admission to the hospital. History & Record Review Discussion w/independent historian: Patient, Family and Significant other Lab Data Attestation: I reviewed the patient's lab results. Labs: Laboratory Results - last 24 hr 10/14/23 10/15/23 23:25 02:39 WBC 2.7 L RBC 4.99 Hgb 14.5 Hct 45.8 MCV 91.8 MCH 29.1 MCHC 31.7 L RDW Std Deviation 45.1 H RDW Coeff of Tish 13.3 Plt Count 200 MPV 10.3 Immature Gran % (Auto) 1.900 H Neut % (Auto) 67.2 Lymph % (Auto) 28.3 [place] % (Auto) 1.1 Eos % (Auto) 1.1 Baso % (Auto) 0.4 Absolute Neuts (auto) 1.8 L Absolute Lymphs (auto) 0.76 L Nucleated RBC % 0 PT 13.8 INR 1.1 APTT 24.5 Sodium 142 Potassium 3.5 Chloride 106 Carbon Dioxide 28.0 Anion Gap 8 BUN 23 H Creatinine 1.65 H Estim Creat Clear Calc 62.31 Est GFR (MDRD) Af Amer 53 L Est GFR (MDRD) Non-Af 43 L BUN/Creatinine Ratio 13.9 Glucose 165 H Lactic Acid 4.6 H* Calcium 8.8 Total Bilirubin 0.60 Direct Bilirubin 0.23 AST 27 ALT 41 Alkaline Phosphatase 87 Total Protein 7.2 Albumin 3.4 Globulin 3.8 Lipase 37 Urine Color Yellow Urine Clarity Sl. Cloudy Urine pH 8.0 Ur Specific [place] 1.010 Urine Protein 30 H Urine Glucose (UA) Normal Urine Ketones Negative Urine Occult Blood 150 H Urine Nitrite Positive H Urine Bilirubin Negative Urine Urobilinogen Normal Ur Leukocyte Esterase 500 H Urine RBC 10-25 SEEN Urine WBC 10-25 SEEN Ur Squamous Epith Cells 0-5 SEEN Urine Bacteria 4+ Urine Mucus 0 SEEN POC Glucose 183 H Radiography Diagnostic Testing: Clinical Impression(s) from Imaging Studies Abdomen/Pelvis CT 10/15/23 01:14 IMPRESSION: No acute findings. Bilateral perinephric stranding is likely chronic and similar to prior study. Acute process such as pyelonephritis is difficult to exclude. Likely contracted gallbladder with cholelithiasis. Electronically Signed: Lesley Campos MD at 2:57 EDT , Chest X-Ray 10/15/23 01:50 IMPRESSION: No definite acute findings Electronically Signed: Lesley Campos MD at 2:59 EDT , EKG Initial EKG: Attestation: I personally reviewed and interpreted this EKG as follows: Comments: Sinus tachycardia ventricular rate of 121 bpm. Patient's EKG is difficult to interpret because of the patient's shaking of his hands. Management Discussion w/another healthcare provider: Hospitalist Discharge Plan Dx/Rx/DC Orders Clinical Impression: Abdominal pain, Type 2 diabetes mellitus, Complicated urinary tract infection, Elevated lactic acid level Disposition Disposition: Acute Care Hospital [facility] Discharge Date/Time: 10/15/23 05:13
[2023-10-15] MEDS: 0.9% Normal Saline (1000mL) 1,000 ML 125 ML IV (05:34)
[2023-10-15 05:38] LABS: Lactic Acid 4.4 mmol/L (0.4-1.9)
[2023-10-15] MEDS: Insulin Lispro 100 UNIT/ML INSULN.PEN SC ×4 (05:56→21:35)
[2023-10-15] MEDS: Gabapentin 600 MG Tablet PO ×3 (05:56→21:27)
[2023-10-15 07:02] LABS: Bedside Glucose 194 mg/dL (74-106)
--- NOTE | 2023-10-15 07:47 | PN.HOSP_ITS ---
Reason for Visit Reason for Visit: Diagnoses Urinary tract infection, site not specified (10/15/23) Subjective Subjective Still having chills and rigors. Objective Data Objective Data Vital Signs: Vital Signs Temp Pulse Resp BP Pulse Ox O2 Del Method O2 Flow Rate 36.8 C 117 H 20 H 145/86 H 95 Nasal Cannula 2 10/15/23 05:51 10/15/23 05:51 10/15/23 05:51 10/15/23 05:51 10/15/23 05:51 10/15/23 06:49 10/15/23 06:49 Oxygen Flow Rate (L/min) 2 Oxygen Delivery Method Nasal Cannula Weight: 161.4 kg Body Mass Index (BMI) 48.2 Intake & Output: Intake and Output for Last 24 Hours 10/13/23 10/14/23 10/15/23 23:59 23:59 23:59 Intake Total 2382.5 / 2382.5 Output Total 500 / 500 Balance 1882.5 / 1882.5 Lab / Micro Data 10/15/23 10:06 10/15/23 10:06 Labs: Laboratory Results - last 24 hr 10/14/23 23:25: WBC 2.7 L, RBC 4.99, Hgb 14.5, Hct 45.8, MCV 91.8, MCH 29.1, M CHC 31.7 L, RDW Std Deviation 45.1 H, RDW Coeff of Tish 13.3, Plt Count 200, MPV 10.3, Immature Gran % (Auto) 1.900 H, Neut % (Auto) 67.2, Lymph % (Auto) 28.3, [place] % (Auto) 1.1, Eos % (Auto) 1.1, Baso % (Auto) 0.4, Absolute Neuts (auto) 1.8 L, Absolute Lymphs (auto) 0.76 L, Nucleated RBC % 0, PT 13.8, INR 1.1, APTT 24.5, Sodium 142, Potassium 3.5, Chloride 106, Carbon Dioxide 28.0, Anion Gap 8, BUN 23 H, Creatinine 1.65 H, Estim Creat Clear Calc 62.31, Est GFR (MDRD) Af Amer 53 L, Est GFR (MDRD) Non-Af 43 L, BUN/Creatinine Ratio 13.9, Glucose 165 H, Lactic Acid 4.6 H*, Calcium 8.8, Total Bilirubin 0.60, Direct Bilirubin 0.23, AST 27, ALT 41, Alkaline Phosphatase 87, Total Protein 7.2, Albumin 3.4, Globulin 3.8, Lipase 37, POC Glucose 183 H 10/15/23 02:39: Urine Color Yellow, Urine Clarity Sl. Cloudy, Urine pH 8.0, Ur Specific [place] 1.010, Urine Protein 30 H, Urine Glucose (UA) Normal, Urine Ketones Negative, Urine Occult Blood 150 H, Urine Nitrite Positive H, Urine Bilirubin Negative, Urine Urobilinogen Normal, Ur Leukocyte Esterase 500 H, Urine RBC 10-25 SEEN, Urine WBC 10-25 SEEN, Ur Squamous Epith Cells 0-5 SEEN, Urine Bacteria 4+, Urine Mucus 0 SEEN 10/15/23 04:32: Lactic Acid 4.4 H* 10/15/23 05:54: POC Glucose 194 H Micro: Microbiology 10/15/23 00:18 Mucosa - Nose SARS-CoV-2, Influenza & RSV (PCR) - Final Radiography Diagnostic Testing: Radiology Impression Abdomen/Pelvis CT 10/15/23 01:14 IMPRESSION: No acute findings. Bilateral perinephric stranding is likely chronic and similar to prior study. Acute process such as pyelonephritis is difficult to exclude. Likely contracted gallbladder with cholelithiasis. Electronically Signed: Lesley Campos MD at 2:57 EDT Reading Location ID and State: [facility] [place] / [place] Tel , Service support , Chest X-Ray 10/15/23 01:50 IMPRESSION: No definite acute findings Electronically Signed: Lesley Campos MD at 2:59 EDT , Physical Exam Const alert Constitutional Narrative: appears fatigued. Resp normal respiratory effort, no retractions and no use of accessory muscles Cardio regular rate, regular rhythm, S1 normal heart sound, S2 normal heart sound and no murmurs GI normal to inspection, nondistended, normoactive bowel sounds, soft to palpation, non-tender and non-distended Extremity Extremity Narrative: Bilateral lower extremity edema with lymphedema wraps in place. Neuro Sensorium / Orientation: awake and alert Assessment & Plan Assessment/Plan (1) Urinary tract infection: PLAN: Plan Acute complicated UTI * admission qSOFA 1. SIRS 3. * suspect pyelonephritis given perinephric stranding noted on CT * Change abx to pip/tazo (from CTX). Follow up UCx, BCx Lactic acidosis * unclear significance given that he also take metformin. Metformin on hold. * Pt did receive IVF * trending down. LUZ * suspected. Baseline creatinine in 2022 was 1, now up to 2.34 * Continue IVF Chronic conditions: * Hypertension: Continue amlodipine, holding hydrochlorothiazide given LUZ, PRN hydralazine. * Hyperlipidemia: We will continue patient on statin therapy. * Diabetes mellitus type II: holding metformin given lactic acidosis. SSI. * Obesity class III: complicates care and recovery * GERD: PPI. VTE prophylaxis: LMWH Full code. Charges/Coding Procedures Hospitalists Procedures: Other Procedure - See Report (Nonbillable rounding as patient was admitted after midnight.)
[2023-10-15] MEDS: Tolterodine Tartrate 2 MG CAP.SA PO (09:04)
[2023-10-15] MEDS: Enoxaparin 40 MG/0.4 ML Syringe SC ×2 (09:04→21:20)
[2023-10-15] MEDS: Potassium Chloride Oral Tablet 20 MEQ 40 MEQ PO ×2 (09:04→21:20)
[2023-10-15] MEDS: Meloxicam 15 MG Tablet PO (09:05)
[2023-10-15] MEDS: Pantoprazole Sodium 40 MG Tablet PO (09:05)
[2023-10-15 10:29] LABS: Absolute Lymphocyte Count 0.67 X10^3/uL (0.83-4.51); Absolute Neutrophil Count 15.9 X10^3/uL (2.0-7.7); Basophil# 0.09 X10^3/uL; Basophil% 0.5 % (0-1); Eosinophil# 0.01 X10^3/uL; Eosinophils% 0.1 % (0-5); Hematocrit 37.7 % (40-54); Hemoglobin 11.6 g/dL (13.0-16.5); Lymphocyte # 0.67 X10^3/ul (0.83-4.51); Lymphocyte % 3.9 % (19-41); Mean Corp Hgb Conc 30.8 g/dL (32-36); Mean Corpuscular Hgb 28.8 pg (27.0-32.0); Mean Corpuscular Volume 93.5 fL (80-94); Mean Platelet Vol. 10.2 fl (6.2-12.0); Monocyte% 2.9 % (0-10); NRBC Flagged by Analyzer 0 % (0-5); Neutrophil # 15.89 X10^3/uL (2.7-7.7); Neutrophil % 91.9 % (47-70); Platelet Count 170 K/mm3 (150-450); RBC Distribution Width CV 13.8 % (11.6-14.6); Red Blood Count 4.03 M/mm3 (4.6-6.2); White Blood Count 17.3 K/mm3 (4.4-11.0)
[2023-10-15 10:57] LABS: Anion Gap 9 (5-15); BUN 28 mg/dL (7-18); Calcium,Total 7.6 mg/dL (8.5-10.1); Chloride 104 mmol/L (98-107); Creatinine, Serum 2.34 mg/dL (0.70-1.30); EST Glomerular Filtration Rate 29 mL/min (>60); Est Glom Filt Rate - Afr Amer 35 mL/min (>60); Estimated Creatinine Clearance 43.53 ml/min; Glucose 185 mg/dL (74-106); Potassium 4.2 mmol/L (3.5-5.1); Sodium Level 137 mmol/L (136-145)
[2023-10-15 11:00] LABS: Lactic Acid 3.3 mmol/L (0.4-1.9)
[2023-10-15 11:33] LABS: Bedside Glucose 152 mg/dL (74-106)
--- NOTE | 2023-10-15 12:26 | CASEMGMT ---
JEREMIAS CARLOS Assessment Face to Face with patient for initial transition planning/care coordination assessment. JEREMIAS CARLOS introduced self and role at [facility], pt voices understanding. Pt is A&Ox4 and is resting comfortably in the chair and is calm. Care providers, pharmacy, and demographics verified. Admitting dx: Complicated UTI PCP: Chelly Specialists: Jannie (Levi [facility]), Dr. Wray (Pod), Tatianna (Ortho) Preferred Pharmacy: [facility] [place] Insurance: [place] Secure Prescription Benefit: yes LNOK: Venus Gates (W), Nora Holley (Daughter) Living Arrangements: Pt lives with his and daughter in a ranch style home with a ramp to enter ADLs/IADLs: States independent at baseline Transportation: Pt does not drive. Pt daughter, Nora, drives the pt. Pt denies concerns DME: Cane, FWW, shower chair, Grab bars, power W/C. Pt is a diabetic and has a BGM. Pt states that he is close to running out of supplies for this and was advised to f/u with his PCP about this. Pt is also on additional oxygen currently. A verbal list of local in network DME companies provided to the pt at this time. Pt prefers [employer] for potential home oxygen needs. HHC/SNF: Denies history or needs Pt?s goal: Home Plan: This JEREMIAS CARLOS reviewed how the pt did with therapy. Pt is adamant about refusing needs including SNF, HHC and OP Tx. Pt states that he is going on vacation next week regardless. 6-Click score is 14. Pt could benefit from additional therapy, however he is currently refusing. CM to follow oxygen needs and to f/u prior to DC to ensure safe DC from [facility]. Shea Palomo RN, CM
[2023-10-15 14:18] LABS: Reflex Lactate? Y
[2023-10-15] MEDS: Piperacil/Tazobactam 3.375 GM in 0.9% Normal Saline (50mL MB+) 50 ML IV ×2 (14:32→21:22)
[2023-10-15 16:11] LABS: Lactic Acid 2.2 mmol/L (0.4-1.9)
[2023-10-15 16:38] LABS: Bedside Glucose 179 mg/dL (74-106)
[2023-10-15] MEDS: oxyCODONE 5 MG Tablet PO (21:18)
[2023-10-15] MEDS: Amitriptyline 10 MG Tablet PO (21:24)
[2023-10-15] MEDS: Atorvastatin Calcium 20 MG Tablet PO (21:27)
[2023-10-16] VITALS (8 sets, daily range): BP systolic 120–154; BP diastolic 74–91; PULSE 88–101; RESP 18–22; TEMP 36.2–37.1; O2SAT 91–96; BMI 48.1
[2023-10-16 01:21] LABS: Bedside Glucose 162 mg/dL (74-106)
[2023-10-16] MEDS: Gabapentin 600 MG Tablet PO ×3 (05:57→22:24)
[2023-10-16] MEDS: Piperacil/Tazobactam 3.375 GM in 0.9% Normal Saline (50mL MB+) 50 ML IV ×3 (06:00→22:17)
[2023-10-16 06:09] LABS: Absolute Lymphocyte Count 1.26 X10^3/uL (0.83-4.51); Absolute Neutrophil Count 11.5 X10^3/uL (2.0-7.7); Basophil# 0.05 X10^3/uL; Basophil% 0.4 % (0-1); Eosinophil# 0.25 X10^3/uL; Eosinophils% 1.8 % (0-5); Hematocrit 37.3 % (40-54); Hemoglobin 11.9 g/dL (13.0-16.5); Lymphocyte # 1.26 X10^3/ul (0.83-4.51); Lymphocyte % 9.1 % (19-41); Mean Corp Hgb Conc 31.9 g/dL (32-36); Mean Corpuscular Hgb 29.4 pg (27.0-32.0); Mean Corpuscular Volume 92.1 fL (80-94); Mean Platelet Vol. 9.8 fl (6.2-12.0); Monocyte% 5.8 % (0-10); NRBC Flagged by Analyzer 0 % (0-5); Neutrophil # 11.45 X10^3/uL (2.7-7.7); Neutrophil % 82.4 % (47-70); Platelet Count 148 K/mm3 (150-450); RBC Distribution Width CV 13.5 % (11.6-14.6); RBC Distribution Width SD 46.1 fl (35.1-43.9); Red Blood Count 4.05 M/mm3 (4.6-6.2); White Blood Count 13.9 K/mm3 (4.4-11.0)
[2023-10-16 06:32] LABS: ALB/GLOB Ratio 0.9 RATIO (0.9-2.4); AST(SGOT) 266 U/L (15-37); Alanine Aminotransfer ALT/SGPT 395 U/L (16-61); Albumin, Serum 2.9 g/dL (3.2-5.0); Alkaline Phosphatase 100 U/L (45-117); Anion Gap 6 (5-15); BUN 28 mg/dL (7-18); BUN/Creat Ratio 13.2 RATIO (10-20); Calcium,Total 7.5 mg/dL (8.5-10.1); Chloride 102 mmol/L (98-107); Creatinine, Serum 2.12 mg/dL (0.70-1.30); EST Glomerular Filtration Rate 33 mL/min (>60); Est Glom Filt Rate - Afr Amer 39 mL/min (>60); Estimated Creatinine Clearance 47.98 ml/min; Globulin 3.2 g/dL (2.2-4.2); Glucose 152 mg/dL (74-106); Potassium 4.2 mmol/L (3.5-5.1); Protein, Total 6.1 g/dL (6.4-8.2); Sodium Level 134 mmol/L (136-145)
[2023-10-16 07:08] LABS: Bedside Glucose 146 mg/dL (74-106)
--- NOTE | 2023-10-16 07:22 | PN.HOSP_ITS ---
Reason for Visit Reason for Visit: Diagnoses Urinary tract infection, site not specified (10/15/23) Subjective Subjective Feeling better. Still with LE edema. Objective Data Objective Data Vital Signs: Vital Signs Temp Pulse Resp BP Pulse Ox O2 Del Method O2 Flow Rate 36.4 C L 101 H 22 H 154/86 H 93 Nasal Cannula 2 10/16/23 04:00 10/16/23 04:00 10/16/23 04:00 10/16/23 04:00 10/16/23 04:00 10/16/23 04:00 10/16/23 04:00 Oxygen Flow Rate (L/min) 2 Oxygen Delivery Method Nasal Cannula Weight: 161 kg Body Mass Index (BMI) 48.1 Intake & Output: Intake and Output for Last 24 Hours 10/14/23 10/15/23 10/16/23 23:59 23:59 23:59 Intake Total 6432.5 / 6672.5 410 / 410 Output Total 700 / 1100 400 / 400 Balance 5732.5 / 5572.5 Lab / Micro Data 10/16/23 05:50 10/16/23 05:50 Labs: Laboratory Results - last 24 hr 10/15/23 10:06: WBC 17.3 H, RBC 4.03 L, Hgb 11.6 L, Hct 37.7 L, MCV 93.5, MCH 28.8, MCHC 30.8 L, RDW Std Deviation 47.0 H, RDW Coeff of Tish 13.8, Plt Count 170, MPV 10.2, Immature Gran % (Auto) 0.700, Neut % (Auto) 91.9 H, Lymph % (Auto) 3.9 L, [place] % (Auto) 2.9, Eos % (Auto) 0.1, Baso % (Auto) 0.5, Absolute Neuts (auto) 15.9 H, Absolute Lymphs (auto) 0.67 L, Nucleated RBC % 0, Sodium 137, Potassium 4.2, Chloride 104, Carbon Dioxide 24.0, Anion Gap 9, BUN 28 H, C reatinine 2.34 H, Estim Creat Clear Calc 43.53, Est GFR (MDRD) Af Amer 35 L, Est GFR (MDRD) Non-Af 29 L, BUN/Creatinine Ratio 12.0, Glucose 185 H, Lactic Acid 3.3 H*, Calcium 7.6 L 07/15/24 11:07: POC Glucose 152 H 10/15/23 14:55: Lactic Acid 2.2 H* 10/15/23 16:17: POC Glucose 179 H 10/15/23 21:33: POC Glucose 162 H 10/16/23 05:50: WBC 13.9 H, RBC 4.05 L, Hgb 11.9 L, Hct 37.3 L, MCV 92.1, MCH 29.4, MCHC 31.9 L, RDW Std Deviation 46.1 H, RDW Coeff of Tish 13.5, Plt Count 148 L, MPV 9.8, Immature Gran % (Auto) 0.500, Neut % (Auto) 82.4 H, Lymph % (Auto) 9.1 L, [place] % (Auto) 5.8, Eos % (Auto) 1.8, Baso % (Auto) 0.4, Absolute Neuts (auto) 11.5 H, Absolute Lymphs (auto) 1.26, Nucleated RBC % 0, Sodium 134 L, Potassium 4.2, Chloride 102, Carbon Dioxide 26.0, Anion Gap 6, BUN 28 H, C reatinine 2.12 H, Estim Creat Clear Calc 47.98, Est GFR (MDRD) Af Amer 39 L, Est GFR (MDRD) Non-Af 33 L, BUN/Creatinine Ratio 13.2, Glucose 152 H, Calcium 7.5 L, Total Bilirubin 1.00, AST 266 H, ALT 395 H, Alkaline Phosphatase 100, Total Protein 6.1 L, Albumin 2.9 L, Globulin 3.2, Albumin/Globulin Ratio 0.9 10/16/23 06:04: POC Glucose 146 H Micro: Microbiology 10/15/23 00:18 Mucosa - Nose SARS-CoV-2, Influenza & RSV (PCR) - Final Physical Exam Const alert and no apparent distress HEENT head/scalp atraumatic and moist oral mucous membranes Resp normal respiratory effort, no retractions, no use of accessory muscles and clear to auscultation bilaterally Cardio regular rate, regular rhythm, S1 normal heart sound and S2 normal heart sound GI normal to inspection, nondistended, normoactive bowel sounds, soft to palpation, non-tender and non-distended Extremity Extremity Narrative: edema. Bilateral LE wraps. Psych affect normal Assessment & Plan Assessment/Plan (1) Urinary tract infection: PLAN: Plan Acute complicated UTI * admission qSOFA 1. SIRS 3. * suspect pyelonephritis given perinephric stranding noted on CT, though was present in 2022 * Change abx to pip/tazo (from CTX). Follow up BCx. Order UCx (not previously ordered) Lactic acidosis * unclear significance given that he also take metformin. Metformin on hold. * Pt did receive IVF * trending down. LUZ * Improved with IVF. Will hold off on additional IVF given anasarca. Transaminitis * AST went from 27 to 266 and ALT went from 41 to 395. * CT showed contracted GB with cholelithiasis * Unclear etiology. Passive congestion v iatrogenic v other * Check US. Monitor. Anasarca * Positive over 5 liters since admission. * Will initiate furosemide * CXR on admission was unremarkable, but patient has since required oxygen. Concern for CHF. Recheck CXR and check echo. Chronic conditions: * Hypertension: Continue amlodipine, holding hydrochlorothiazide given LUZ, PRN hydralazine. * Hyperlipidemia: We will continue patient on statin therapy. * Diabetes mellitus type II: holding metformin given lactic acidosis. SSI. * Obesity class III: complicates care and recovery * GERD: PPI. VTE prophylaxis: LMWH Full code. DW family at bedside. Charges/Coding Visit Charges Inpatient E&M: 23865 Subs Hosp L2
[2023-10-16] MEDS: Mag /Aluminum/Simeth WCH UDC 30 ML ORAL.SUSP PO (08:53)
[2023-10-16] MEDS: Potassium Chloride Oral Tablet 20 MEQ 40 MEQ PO ×2 (08:58→22:22)
[2023-10-16] MEDS: Enoxaparin 40 MG/0.4 ML Syringe SC ×2 (08:58→22:23)
[2023-10-16] MEDS: Tolterodine Tartrate 2 MG CAP.SA PO (08:58)
[2023-10-16] MEDS: 0.9% Saline Lock 10 ML Syringe IV ×2 (08:59→18:34)
[2023-10-16] MEDS: Pantoprazole Sodium 40 MG Tablet PO (08:59)
[2023-10-16] MEDS: amLODIPine 10 MG Tablet PO (08:59)
[2023-10-16 10:57] LABS: Bedside Glucose 178 mg/dL (74-106)
--- NOTE | 2023-10-16 11:57 | CASEMGMT ---
Social Work SW spoke w/pt, pt's and daughter in room, confirmed that is POA and daughter Nora is the alternate. Nora states she has the documents at home and will bring them in. KATT Matute
--- NOTE | 2023-10-16 12:35 | US_ITS ---
STUDY: ABDOMINAL ULTRASOUND - RIGHT UPPER QUADRANT REASON FOR VISIT: Male, 72 years old transaminitis TECHNIQUE: Ultrasound evaluation of the right upper quadrant was performed with real-time and static hunter-scale imaging. TECHNICAL QUALITY: Adequate. COMPARISON: None. FINDINGS: Liver: The liver measures 24.0 cm. There is increased echogenicity consistent with fatty infiltration. The bile ducts are within normal limits. There is hepatic color flow. The direction of portal flow is hepatopetal. There is no demonstrated mass lesion. Gallbladder: The gallbladder is not visualized.. Common Bile Duct (C.B.D.): The common bile duct measures 4 mm. Pancreas: Normal size of the head, body and tail of the pancreas. There is normal echogenicity of the pancreas. There is no demonstrated pancreatic mass or cyst. Right Kidney: Normal size of the right kidney. The right kidney measures 14.0 cm. Normal renal cortex. The right cortex measures 1.9 cm. 4 cm cyst lower pole right kidney. There is no right hydronephrosis. US/Abdomen Limited IMPRESSION: Fatty liver. Electronically Signed: Zachary Lobo MD at 17:31 EDT ,
--- NOTE | 2023-10-16 12:35 | ECHOCS_ITS ---
Reason For Study: CONGESTIVE HEART FAILURE Procedure This was a 2D Doppler, Color Flow transthoracic echocardiogram. The study was technically difficult. Contrast injection was performed. Exam performed portable in patient room. Left Ventricle Normal LV size. The estimated ejection fraction is 65 %. No evidence for diastolic dysfunction. No regional wall motion abnormalities noted. Right Ventricle Normal RV size. Normal systolic function. Atria The left and right atria are normal. No doppler evidence for ASD. Mitral Valve There is no mitral valve stenosis. Trivial mitral valve insufficiency. Tricuspid Valve There is no tricuspid stenosis. Trivial tricuspid valve insufficiency. Pulmonary artery systolic pressure is 20 mmHg. Aortic Valve Trisinus/trileaflet aortic valve. There is no aortic stenosis. No aortic valve insufficiency. Pulmonic Valve There is no pulmonic valvular stenosis. No pulmonic valve insufficiency. Great Vessels Normal aortic root. Pericardium/Pleural No pericardial effusion. Medication Diluted definity 2ml given slow IV push to enhance endocardial definition. MMode/2D Measurements & Calculations LVIDd: 4.8 cm IVSd: 1.4 cm LVOT diam: 2.2 cm LVIDs: 2.5 cm LVPWd: 1.3 cm RVDd: 4.1 cm FS: 48.1 % LVOT area: 3.8 cm2 Ao root diam: 3.6 cm LAV(MOD-bp): 89.1 ml LVAd ap4: 42.7 cm2 LAV(MOD-bp) Indexed: 32.8 ml/m2 LVLd ap4: 8.9 cm LAV(MOD-sp2): 99.9 ml EDV(MOD-sp4): 163.8 ml LAV(MOD-sp4): 75.0 ml EDV(sp4-el): 174.0 ml LVAs ap4: 26.2 cm2 LVLs ap4: 7.7 cm ESV(MOD-sp4): 72.6 ml ESV(sp4-el): 76.2 ml EF(MOD-sp4): 55.7 % EF(sp4-el): 56.2 % LVAd ap2: 41.4 cm2 SV(MOD-sp4): 91.2 ml SV(MOD-sp2): 104.3 ml LVLd ap2: 8.5 cm EDV(MOD-sp2): 162.4 ml EDV(sp2-el): 171.6 ml LVAs ap2: 23.1 cm2 LVLs ap2: 7.3 cm ESV(MOD-sp2): 58.1 ml ESV(sp2-el): 61.9 ml EF(MOD-sp2): 64.2 % SV(sp4-el): 97.8 ml LA dimension(2D): 4.5 cm LA A4 area: 24.6 cm2 RA A4 area: 18.0 cm2 TAPSE: 2.2 cm Time Measurements MV dec time: 0.19 sec Doppler Measurements & Calculations MV E max tato: 102.0 cm/sec Lat Peak E' Tato: 10.3 cm/sec Med Peak E' Tato: 7.3 cm/sec MV A max tato: 54.0 cm/sec E/E' lat: 9.9 E/E' med: 13.9 MV E/A: 1.9 Ao V2 max: 145.2 cm/sec LV V1 max: 125.0 cm/sec MV dec slope: 548.6 cm/sec2 Ao max P.4 mmHg LV V1 max P.2 mmHg Ao V2 mean: 108.5 cm/sec LV V1 mean P.4 mmHg Ao mean P.2 mmHg LV V1 mean: 102.6 cm/sec Ao V2 VTI: 29.1 cm LV V1 VTI: 23.4 cm AV (velocity ratio): 0.80 PASCALE(I,D): 3.1 cm2 PASCALE(V,D): 3.3 cm2 SV(LVOT): 90.0 ml PA V2 max: 118.7 cm/sec TR max tato: 198.0 cm/sec PA max PG (full): 3.6 mmHg TR max P.7 mmHg ECHO/Echo Complete W/ Contrast Interpretation Summary The estimated ejection fraction is 65 %. No evidence for diastolic dysfunction. Trivial mitral valve insufficiency. Ordering Physician: Jeronimo Fuentes Referring Physician: MD Chelly Scotty Performed By: Michelle Krueger RDCS and Student
[2023-10-16] MEDS: Insulin Lispro 100 UNIT/ML INSULN.PEN SC ×2 (12:37→22:33)
--- NOTE | 2023-10-16 13:10 | RAD_ITS ---
STUDY: X-RAY CHEST REASON FOR EXAM: Male, 72 years old. dyspnea TECHNIQUE: Single AP portable view of the chest. COMPARISON: 10/15/2023 FINDINGS: The lungs are clear and expanded. There is no demonstrated pleural abnormality. Normal size heart. Normal mediastinum and nadeem. Normal visualized pulmonary arteries. Normal visualized aortic arch and descending thoracic aorta. Normal visualized thoracic spine. Normal visualized ribs, clavicles, and shoulders. There is no demonstrated abnormality of the visualized soft tissue structures of the upper abdomen. RAD/Chest 1 View (Portable) IMPRESSION: Normal x-ray examination of the chest. Electronically Signed: Zachary Lobo MD at 16:56 EDT ,
[2023-10-16] MEDS: Furosemide 40 MG/4 ML Vial IV ×2 (14:41→18:33)
[2023-10-16 17:20] LABS: Bedside Glucose 135 mg/dL (74-106)
--- NOTE | 2023-10-16 17:20 | NURSING ---
This RN taking over care at this time
[2023-10-16] MEDS: oxyCODONE 5 MG Tablet PO (18:47)
[2023-10-16] MEDS: Atorvastatin Calcium 20 MG Tablet PO (22:25)
[2023-10-16] MEDS: Amitriptyline 10 MG Tablet PO (22:26)
[2023-10-16] MEDS: Phenazopyridine 95 MG Tablet PO (22:32)
[2023-10-16 23:22] LABS: Bedside Glucose 175 mg/dL (74-106)
[2023-10-17] VITALS (7 sets, daily range): BP systolic 132–150; BP diastolic 72–79; PULSE 80–85; RESP 18–20; TEMP 36.3–37.3; O2SAT 93–97; BMI 48.1
[2023-10-17] MEDS: Piperacil/Tazobactam 3.375 GM in 0.9% Normal Saline (50mL MB+) 50 ML IV ×3 (05:59→21:38)
[2023-10-17] MEDS: Phenazopyridine 95 MG Tablet PO ×3 (06:01→21:41)
[2023-10-17] MEDS: Gabapentin 600 MG Tablet PO ×3 (06:01→21:40)
[2023-10-17 06:06] LABS: Absolute Lymphocyte Count 1.16 X10^3/uL (0.83-4.51); Absolute Neutrophil Count 6.8 X10^3/uL (2.0-7.7); Basophil# 0.05 X10^3/uL; Basophil% 0.6 % (0-1); Eosinophil# 0.28 X10^3/uL; Eosinophils% 3.2 % (0-5); Hematocrit 36.2 % (40-54); Hemoglobin 11.4 g/dL (13.0-16.5); Lymphocyte # 1.16 X10^3/ul (0.83-4.51); Lymphocyte % 13.1 % (19-41); Mean Corp Hgb Conc 31.5 g/dL (32-36); Mean Corpuscular Hgb 28.8 pg (27.0-32.0); Mean Corpuscular Volume 91.4 fL (80-94); Mean Platelet Vol. 10.7 fl (6.2-12.0); Monocyte# 0.56 X10^3/uL; Monocyte% 6.3 % (0-10); NRBC Flagged by Analyzer 0 % (0-5); Neutrophil # 6.77 X10^3/uL (2.7-7.7); Neutrophil % 76.2 % (47-70); Platelet Count 152 K/mm3 (150-450); RBC Distribution Width CV 13.3 % (11.6-14.6); RBC Distribution Width SD 45.1 fl (35.1-43.9); Red Blood Count 3.96 M/mm3 (4.6-6.2); White Blood Count 8.9 K/mm3 (4.4-11.0)
[2023-10-17 06:24] LABS: Bedside Glucose 144 mg/dL (74-106)
[2023-10-17 06:46] LABS: ALB/GLOB Ratio 0.7 RATIO (0.9-2.4); AST(SGOT) 103 U/L (15-37); Alanine Aminotransfer ALT/SGPT 238 U/L (16-61); Albumin, Serum 2.6 g/dL (3.2-5.0); Alkaline Phosphatase 90 U/L (45-117); Anion Gap 3 (5-15); BUN 24 mg/dL (7-18); Calcium,Total 7.8 mg/dL (8.5-10.1); Chloride 106 mmol/L (98-107); Creatinine, Serum 1.85 mg/dL (0.70-1.30); EST Glomerular Filtration Rate 38 mL/min (>60); Est Glom Filt Rate - Afr Amer 46 mL/min (>60); Estimated Creatinine Clearance 54.98 ml/min; Globulin 3.5 g/dL (2.2-4.2); Glucose 150 mg/dL (74-106); Potassium 4.5 mmol/L (3.5-5.1); Protein, Total 6.1 g/dL (6.4-8.2); Sodium Level 139 mmol/L (136-145)
[2023-10-17] MEDS: Potassium Chloride Oral Tablet 20 MEQ 40 MEQ PO ×2 (09:10→21:41)
[2023-10-17] MEDS: Tolterodine Tartrate 2 MG CAP.SA PO (09:10)
[2023-10-17] MEDS: Furosemide 40 MG/4 ML Vial IV ×2 (09:10→16:36)
[2023-10-17] MEDS: amLODIPine 10 MG Tablet PO (09:10)
[2023-10-17] MEDS: Enoxaparin 40 MG/0.4 ML Syringe SC ×2 (09:10→21:41)
[2023-10-17] MEDS: Pantoprazole Sodium 40 MG Tablet PO (09:11)
--- NOTE | 2023-10-17 09:41 | PN.HOSP_ITS ---
Subjective Subjective Minimal, no issues overnight. Urine cultures are pending Objective Data Objective Data Vital Signs: Vital Signs Temp Pulse Resp BP Pulse Ox O2 Del Method O2 Flow Rate 97.6 F L 80 18 150/72 H 95 Nasal Cannula 2 10/17/23 09:07 10/17/23 09:07 10/17/23 09:07 10/17/23 09:07 10/17/23 09:07 10/17/23 09:07 10/17/23 09:07 Oxygen Flow Rate (L/min) 2 Oxygen Delivery Method Nasal Cannula Weight: 354 lb 15.108 oz Body Mass Index (BMI) 48.1 Intake & Output: Intake and Output for Last 24 Hours 10/16/23 10/17/23 10/18/23 03:59 03:59 03:59 Intake Total 4722.5 / 4722.5 1230 / 1230 480 / 480 Output Total 600 / 600 2250 / 2250 1000 / 1000 Balance 4122.5 / 4122.5 -1020 / -1020 -520 / -520 Lab / Micro Data 10/17/23 05:12 10/17/23 05:12 Labs: Laboratory Results - last 24 hr 10/16/23 10:39: POC Glucose 178 H 10/16/23 17:02: POC Glucose 135 H 10/16/23 22:29: POC Glucose 175 H 10/17/23 05:12: WBC 8.9, RBC 3.96 L, Hgb 11.4 L, Hct 36.2 L, MCV 91.4, MCH 28.8, MCHC 31.5 L, RDW Std Deviation 45.1 H, RDW Coeff of Tish 13.3, Plt Count 152, MPV 10.7, Immature Gran % (Auto) 0.600, Neut % (Auto) 76.2 H, Lymph % (Auto) 13.1 L, [place] % (Auto) 6.3, Eos % (Auto) 3.2, Baso % (Auto) 0.6, Absolute Neuts (auto) 6.8, Absolute Lymphs (auto) 1.16, Nucleated RBC % 0, Sodium 139, Potassium 4.5, Chloride 106, Carbon Dioxide 30.0, Anion Gap 3 L, BUN 24 H, Creatinine 1.85 H, Estim Creat Clear Calc 54.98, Est GFR (MDRD) Af Amer 46 L, Est GFR (MDRD) Non-Af 38 L, BUN/Creatinine Ratio 13.0, Glucose 150 H, Calcium 7.8 L, Total Bilirubin 0.70, AST 103 H, ALT 238 H, Alkaline Phosphatase 90, Total Protein 6.1 L, A lbumin 2.6 L, Globulin 3.5, Albumin/Globulin Ratio 0.7 L 10/17/23 06:04: POC Glucose 144 H Micro: Microbiology 10/15/23 00:18 Mucosa - Nose SARS-CoV-2, Influenza & RSV (PCR) - Final Radiography Diagnostic Testing: Radiology Impression Abdomen Ultrasound 10/16/23 12:35 IMPRESSION: Fatty liver. Electronically Signed: Zachary Lobo MD at 17:31 EDT , Echocardiogram 10/16/23 12:35 Interpretation Summary The estimated ejection fraction is 65 %. No evidence for diastolic dysfunction. Trivial mitral valve insufficiency. Ordering Physician: Jeronimo Fuentes Referring Physician: MD Chelly Scotty Performed By: Michelle Krueger RDCS and Student Chest X-Ray 10/16/23 13:10 IMPRESSION: Normal x-ray examination of the chest. Electronically Signed: Zachary Lobo MD at 16:56 EDT , Physical Exam Narrative General: Alert, Oriented x3, Cooperative, No apparent distress, morbidly obese HEENT: Atraumatic, PERRLA, EOMI, Normocephalic Oral: Moist Mucosa Neck: Supple, No JVD Lungs: Diminished, Normal air movement, No rhonchi, No wheeze, No rales Cardiovascular: Regular rate, Regular Rhythm, Normal S1, Normal S2, No murmurs Abdomen: Soft, Non Tender, Non-Distended, No Hepato-splenomegaly Extremities: Edema, Capillary Refill Less than 3 Seconds Skin: No rashes, No breakdown Musculoskeletal: No Tenderness to Palpation of Joints or Extremities Neurological: No focal neurological deficits, Motor Exam 5/5 strength throughout, Sensory exam intact to light touch and pain Psych/Mental Status: Normal Affect, Appropriate Assessment & Plan Assessment/Plan (1) Urinary tract infection: PLAN: Plan 1. Complicated UTI with possible pyelonephritis/LUZ/transaminitis ? Urine cultures are pending though his white count is improving with Zosyn ? Renal function is also improving, baseline creatinine appears to be around 1.4 ? He did have an abrupt increase in his AST and ALT both of which are improving unclear as to the etiology at this time, abdominal ultrasound demonstrates fatty liver consistent with his BMI of 48 and his morbid obesity ? He does have significant edema with 4 L positive continuing with IV Lasix. Echo with normal EF and no diastolic dysfunction 2. Essential HTN/HLD ? Blood pressures are stable ? Continue with his home blood pressure medications ? Will monitor and make adjustments as necessary ? Echo with normal EF and no diastolic dysfunction 3. DM2 ? Continue with sliding scale insulin ? Accu-Cheks ACHS ? Monitor make adjustments as necessary 4. GERD ? Stable ? Continue with PPI DVT: Lovenox Charges/Coding Visit Charges Inpatient E&M: 36099 Subs Hosp L2
[2023-10-17] MEDS: Insulin Lispro 100 UNIT/ML INSULN.PEN SC ×3 (11:05→21:56)
[2023-10-17] MEDS: oxyCODONE 5 MG Tablet PO (11:08)
[2023-10-17 11:42] LABS: Bedside Glucose 178 mg/dL (74-106)
--- NOTE | 2023-10-17 14:37 | CHAPLAIN ---
Type of Pastoral Visit _x__ Initial Visit ___ Follow-up Visit ___ On-call Visit ___ General Patient Visit ___ Spiritual Assessment ___ Family Conference ___ Bereavement ___ Rapid Response ___ Code Blue ___ Other (describe below) Pastoral Care Referral From _x__ Patient ___ Family ___ Nurse ___ Physician ___ Senior Insight Manager ___ Boat Hoist Operator ___ Other (describe below) Sacrament/Intervention _x__ Active listening ___ Anointing ___ Rastafari ___ Bereavement ___ Communion ___ Jessica exploration ___ _x__ Life review ___ Prayer ___ Reconciliation ___ Sacrament of Sick ___ Supportive presence ___ Wedding ___ Other (describe below) Pastoral Comments patient had been out walking in the hallways with assistance from therapy; waited until a more appropriate time to meet with pt and a few family members; pt says that he is doing better, can handle being in the hospital, but hopes to go home tomorrow if possible; pt is open to visit and support; family members do not engage in conversation; pt has no further concerns at this time
[2023-10-17 16:55] LABS: Bedside Glucose 187 mg/dL (74-106)
[2023-10-17] MEDS: Amitriptyline 10 MG Tablet PO (21:41)
[2023-10-17] MEDS: Atorvastatin Calcium 20 MG Tablet PO (21:41)
[2023-10-17 23:50] LABS: Bedside Glucose 187 mg/dL (74-106)
[2023-10-18 01:00] VITALS: PULSE 85
[2023-10-18 03:30] VITALS: BP 132/72; PULSE 82; RESP 16; TEMP 37.2; O2SAT 98
[2023-10-18 05:25] VITALS: BMI 48.2
[2023-10-18] MEDS: Piperacil/Tazobactam 3.375 GM in 0.9% Normal Saline (50mL MB+) 50 ML IV (06:07)
[2023-10-18] MEDS: Phenazopyridine 95 MG Tablet PO (06:08)
[2023-10-18] MEDS: Gabapentin 600 MG Tablet PO (06:08)
[2023-10-18 06:14] LABS: Absolute Lymphocyte Count 1.31 X10^3/uL (0.83-4.51); Absolute Neutrophil Count 4.3 X10^3/uL (2.0-7.7); Basophil# 0.04 X10^3/uL; Basophil% 0.6 % (0-1); Eosinophil# 0.44 X10^3/uL; Eosinophils% 6.7 % (0-5); Hematocrit 36.2 % (40-54); Hemoglobin 11.7 g/dL (13.0-16.5); Lymphocyte # 1.31 X10^3/ul (0.83-4.51); Lymphocyte % 19.8 % (19-41); Mean Corp Hgb Conc 32.3 g/dL (32-36); Mean Corpuscular Hgb 29.2 pg (27.0-32.0); Mean Corpuscular Volume 90.3 fL (80-94); Monocyte# 0.48 X10^3/uL; Monocyte% 7.3 % (0-10); NRBC Flagged by Analyzer 0 % (0-5); Neutrophil # 4.27 X10^3/uL (2.7-7.7); Neutrophil % 64.7 % (47-70); Platelet Count 164 K/mm3 (150-450); RBC Distribution Width CV 13.2 % (11.6-14.6); RBC Distribution Width SD 43.7 fl (35.1-43.9); Red Blood Count 4.01 M/mm3 (4.6-6.2); White Blood Count 6.6 K/mm3 (4.4-11.0)
[2023-10-18 06:39] LABS: Anion Gap 4 (5-15); BUN 18 mg/dL (7-18); BUN/Creat Ratio 11.9 RATIO (10-20); Calcium,Total 8.4 mg/dL (8.5-10.1); Chloride 104 mmol/L (98-107); Creatinine, Serum 1.51 mg/dL (0.70-1.30); EST Glomerular Filtration Rate 48 mL/min (>60); Est Glom Filt Rate - Afr Amer 58 mL/min (>60); Estimated Creatinine Clearance 67.41 ml/min; Glucose 155 mg/dL (74-106); Potassium 3.7 mmol/L (3.5-5.1); Sodium Level 142 mmol/L (136-145)
[2023-10-18 06:43] VITALS: O2SAT 95
[2023-10-18] MEDS: amLODIPine 10 MG Tablet PO (07:40)
[2023-10-18] MEDS: Furosemide 40 MG/4 ML Vial IV (07:40)
[2023-10-18] MEDS: Enoxaparin 40 MG/0.4 ML Syringe SC (07:40)
[2023-10-18] MEDS: Tolterodine Tartrate 2 MG CAP.SA PO (07:41)
[2023-10-18] MEDS: Potassium Chloride Oral Tablet 20 MEQ 40 MEQ PO (07:41)
[2023-10-18] MEDS: Pantoprazole Sodium 40 MG Tablet PO (07:49)
[2023-10-18] MEDS: Insulin Lispro 100 UNIT/ML INSULN.PEN SC ×2 (07:49→11:26)
[2023-10-18 08:12] VITALS: BP 138/60; PULSE 78; RESP 18; TEMP 36.6; O2SAT 97
[2023-10-18 11:45] LABS: Bedside Glucose 166 mg/dL (74-106)
--- NOTE | 2023-10-18 12:08 | DCINST_ITS ---
Discharge Instructions Diet Discharge Diet: Low fat / Low cholesterol and Carb Control Diet Activity Discharge Activity: Return to Normal Activity Dressing / Incision Call your doctor if you observe: Fever of 101 or Higher, Shortness of breath, Dizziness, Fainting spells, Swelling in the ankles, Chest pain and Increased palpitations (irregular heartbeat) Follow Up Care Test Results: Test results from this visit will be discussed in further detail at your follow- up appointment, if applicable. Discharge Plan Admission Admit Date/Time: 10/15/23 03:43 Attending Provider: Jamey Rome Primary Care Provider: Scotty Spaulding Consulting Providers: Brina Neves; Jeronimo Fuentes Discharge Orders/Prescriptions Prescriptions: New ciprofloxacin HCl 500 mg tablet 500 mg PO BID Qty: 10 0RF furosemide [Lasix] 40 mg tablet 40 mg PO DAILY Qty: 7 0RF Continued potassium chloride [Klor-Con M20] 20 MEQ tablet 40 meq PO BID Patient Comments: potassium supplement cholecalciferol (vitamin D3) [Vitamin D3] 1,000 UNIT tablet 2,000 unit PO DAILY Patient Comments: supplement amlodipine 10 MG tablet 10 mg PO DAILY oxycodone-acetaminophen 1 TABLET tablet 1 tab PO BID PRN (Reason: Not Specified) Patient Comments: pain medication pantoprazole 40 MG tablet 40 mg PO DAILY hydrochlorothiazide 25 MG tablet 25 mg PO DAILY metformin 500 MG tablet 500 mg PO DAILY hydrochlorothiazide 25 mg tablet 25 mg PO DAILY Qty: 20 0RF meloxicam 15 mg tablet 15 mg PO DAILY Patient Comments: TAKE 1 TABLET BY MOUTH EVERY DAY gabapentin 600 mg tablet 600 mg PO TID atorvastatin 20 mg tablet 20 mg PO QHS amitriptyline 10 mg tablet 10 mg PO QHS solifenacin 5 mg tablet 5 mg PO DAILY Ocutabs Tablet 2 tab PO DAILY Referrals / Follow Up: Scotty Spaulding MD [Primary Care Provider] - Within 1 Week Disposition Disposition (needs filled in before D/C Order can be placed): Home, Self Care
[2023-10-18 12:09] VITALS: O2SAT 92; O2SAT 94
[2023-10-18 12:15] VITALS: BP 135/76; PULSE 77; RESP 18; TEMP 36.6; O2SAT 97
--- NOTE | 2023-10-18 13:41 | CASEMGMT ---
Patient has order for discharge. RN CM in to discuss needs at discharge, at bedside. Patient does not qualify for home oxygen. Patient and deny needs or help at discharge. Patient and had no further questions or concerns.
--- NOTE | 2023-10-18 13:49 | PHA.DC_ITS ---
Pharmacy [facility] Pharmacy Service has performed discharge medication reconciliation and counseling for this patient. The patient's discharge medication list was reviewed for discrepancies and discrepancies were resolved. The patient was counseled on the following discharge medications and changes in medications for homegoing were reviewed. 1. CIPRO 2. LASIX The Reason for Use, instructions for use, and potential side effects were reviewed for all new medications. The patient's questions regarding all of their medications were answered. The patient was able to verbally demonstrate an understanding of their discharge medications. The patient was counselled by Tony Phipps PharmD Candidate Medications at Discharge Home Medications cholecalciferol (vitamin D3) 25 mcg (1,000 unit) tablet (Vitamin D3) 2,000 unit PO DAILY SUPPLEMENT 04/19/14 potassium chloride 20 mEq tablet,extended release(part/cryst) (Klor-Con M) 40 meq PO BID POTASSIUM 04/19/14 amlodipine 10 mg tablet 10 mg PO DAILY BP 11/20/19 hydrochlorothiazide 25 mg tablet 25 mg PO DAILY BP 11/20/19 oxycodone-acetaminophen 5 mg-325 mg tablet 1 tab PO BID PRN pain 11/20/19 pantoprazole 40 mg tablet,delayed release 40 mg PO DAILY GERD 11/20/19 metformin 500 mg tablet,extended release 24 hr 500 mg PO DAILY diabetes 11/21/19 hydrochlorothiazide 25 mg tablet 25 mg PO DAILY blood pressure #20 tabs 08/30/22 meloxicam 15 mg tablet 15 mg PO DAILY pain 11/26/22 amitriptyline 10 mg tablet 10 mg PO QHS mood 10/14/23 atorvastatin 20 mg tablet 20 mg PO QHS cholesterol 10/14/23 gabapentin 600 mg tablet 600 mg PO TID pain/nerves 10/14/23 solifenacin 5 mg tablet 5 mg PO DAILY bladder 10/14/23 vitamin A-vitamin C-vit E-min tablet (Ocutabs tablet) 2 tab PO DAILY supplement 10/14/23 ciprofloxacin HCl 500 mg tablet 500 mg PO BID #10 tabs 10/18/23 furosemide 40 mg tablet (Lasix) 40 mg PO DAILY #7 tabs 10/18/23
--- NOTE | 2023-10-18 15:30 | DS.PCM_ITS ---
Providers Date of Admission: 10/15/23 Primary Care Physician: Dr. Scotty Spaulding MD Reason For Visit: COMPLICATED UTI LACTID ACIDOSIS Diagnosis Discharge Diagnosis (1) Urinary tract infection: Status: Acute Code(s): N39.0 - Urinary tract infection, site not specified Medications at Discharge Home Medications cholecalciferol (vitamin D3) 25 mcg (1,000 unit) tablet (Vitamin D3) 2,000 unit PO DAILY SUPPLEMENT 04/19/14 potassium chloride 20 mEq tablet,extended release(part/cryst) (Klor-Con M) 40 meq PO BID POTASSIUM 04/19/14 amlodipine 10 mg tablet 10 mg PO DAILY BP 11/20/19 hydrochlorothiazide 25 mg tablet 25 mg PO DAILY BP 11/20/19 oxycodone-acetaminophen 5 mg-325 mg tablet 1 tab PO BID PRN pain 11/20/19 pantoprazole 40 mg tablet,delayed release 40 mg PO DAILY GERD 11/20/19 metformin 500 mg tablet,extended release 24 hr 500 mg PO DAILY diabetes 11/21/19 hydrochlorothiazide 25 mg tablet 25 mg PO DAILY blood pressure #20 tabs 08/30/22 meloxicam 15 mg tablet 15 mg PO DAILY pain 11/26/22 amitriptyline 10 mg tablet 10 mg PO QHS mood 10/14/23 atorvastatin 20 mg tablet 20 mg PO QHS cholesterol 10/14/23 gabapentin 600 mg tablet 600 mg PO TID pain/nerves 10/14/23 solifenacin 5 mg tablet 5 mg PO DAILY bladder 10/14/23 vitamin A-vitamin C-vit E-min tablet (Ocutabs tablet) 2 tab PO DAILY supplement 10/14/23 ciprofloxacin HCl 500 mg tablet 500 mg PO BID #10 tabs 10/18/23 furosemide 40 mg tablet (Lasix) 40 mg PO DAILY #7 tabs 10/18/23 Hospital Course Operations None Procedures 2-D Echocardiogram (The estimated ejection fraction is 65 %. No evidence for diastolic dysfunction. Trivial mitral valve insufficiency.) Summary of Care Provided Minutes Spent on Discharge: 32 Hospital Course: Per HPI: The patient is a 72 y/o M w/ PMHx: Morbid obesity, HTN, HLD, Former tobacco use, GERD, BPH, Diabetes mellitus type II with chronic neuropathy who presents to the [facility] ED on 10/15/23 with history of chills, nausea, emesis that started approximately 9 PM on day of presentation with 2 to 3 days of reported foul-smelling urine but no specifically associated dysuria, urgency, frequency or retention prompting eventual ED evaluation. He does follow with a urologist outside of [place]. He does state that he commonly gets urinary tract infections and was treated within the last month. Workup in the ED included T98.3, heart rate 123, BP 173/102, respiratory rate 23, 95% on room air however desaturated down to 87%, most recent repeat vital signs T98.8, heart rate 121, BP 126/74, respiratory rate 24, 97% on 2 L nasal cannula, CBC with WC 2.7, human 14.5, platelet 200 with increased immature granulocytes with ANC 1.8 and lymphopenia, unremarkable coags, CMP with BUN/creatinine 23/1.65, GFR 43, glucose 165, lactic acid 4.6, unremarkable hepatic profile, rapid SARS COVID/influenza/RSV PCR negative, CT abdomen and pelvis with no acute findings with bilateral perinephric stranding that is likely chronic and similar to prior studies, likely contracted gallbladder with cholelithiasis, chest x-ray with no acute cardiopulmonary findings, UA with cloudy appearing urine, protein 30, occult blood 150, positive nitrate, leukocyte esterase 500, urine RBCs 10-25, urine to BCs 10-25, 4+ urine bacteria, urine culture pending per ED, blood culture x 2 pending per ED, EKG with sinus tachycardia but poor EKG secondary to movements during procedure. In the ED patient was IV fluid resuscitated per sepsis protocol with 2 L normal saline and continue maintenance IV fluids administered, additionally patient received Zofran 4 mg IV x 1, morphine 4 mg IV x 1 and Rocephin 1 g IV x 1. Hospital Course: 1. Complicated UTI with possible pyelonephritis due to Proteus/LUZ/transaminitis ? Urine cultures are pending though his white count is improving with Zosyn ? Renal function is also improving, baseline creatinine appears to be around 1.4 ? He did have an abrupt increase in his AST and ALT both of which are improving unclear as to the etiology at this time, abdominal ultrasound demonstrates fatty liver consistent with his BMI of 48 and his morbid obesity, recommend outpatient follow-up with GI ? He does have significant edema with 4 L positive continuing with IV Lasix. Echo with normal EF and no diastolic dysfunction ? I discussed with him and his family the plan for discharge today and he expressed understanding of the risk and benefits of going home and would like to go home today. He was found to have a Proteus infection that was pansensitive so we will discharge on Cipro for 5 more days. Will continue with Lasix for another week and I recommend outpatient follow-up with his PCP to monitor his renal function. Blood pressures have been stable and he did ambulate without any oxygen requirements so hopefully with continued ambulation and diuresis he will be feeling much better. His renal function has improved to 1.51 on the day of discharge 2. Essential HTN/HLD ? Blood pressures are stable ? Continue with his home blood pressure medications ? Will monitor and make adjustments as necessary ? Echo with normal EF and no diastolic dysfunction 3. DM2 ? Continue with sliding scale insulin ? Accu-Cheks ACHS ? Monitor make adjustments as necessary 4. GERD ? Stable ? Continue with PPI Physical Exam Narrative General: Alert, Oriented x3, Cooperative, No apparent distress, morbidly obese HEENT: Atraumatic, PERRLA, EOMI, Normocephalic Oral: Moist Mucosa Neck: Supple, No JVD Lungs: Diminished, Normal air movement, No rhonchi, No wheeze, No rales Cardiovascular: Regular rate, Regular Rhythm, Normal S1, Normal S2, No murmurs Abdomen: Soft, Non Tender, Non-Distended, No Hepato-splenomegaly Extremities: Edema, Capillary Refill Less than 3 Seconds Skin: No rashes, No breakdown Musculoskeletal: No Tenderness to Palpation of Joints or Extremities Neurological: No focal neurological deficits, Motor Exam 5/5 strength throughout, Sensory exam intact to light touch and pain Psych/Mental Status: Normal Affect, Appropriate Weight / BMI Weight Weight: 355 lb 6.162 oz Body Mass Index (BMI) 48.2 ABG / Lab / Microbiology Data 10/18/23 05:48 10/18/23 05:48 Laboratory: Laboratory Results - last 24 hr 10/17/23 16:34: POC Glucose 187 H 10/17/23 21:55: POC Glucose 187 H 10/18/23 05:48: WBC 6.6, RBC 4.01 L, Hgb 11.7 L, Hct 36.2 L, MCV 90.3, MCH 29.2, MCHC 32.3, RDW Std Deviation 43.7, RDW Coeff of Tish 13.2, Plt Count 164, MPV 10.0, Immature Gran % (Auto) 0.900, Neut % (Auto) 64.7, Lymph % (Auto) 19.8, [place] % (Auto) 7.3, Eos % (Auto) 6.7 H, Baso % (Auto) 0.6, Absolute Neuts (auto) 4.3, Absolute Lymphs (auto) 1.31, Nucleated RBC % 0, Sodium 142, Potassium 3.7, Chloride 104, Carbon Dioxide 34.0 H, Anion Gap 4 L, BUN 18, Creatinine 1.51 H, Estim Creat Clear Calc 67.41, Est GFR (MDRD) Af Amer 58 L, Est GFR (MDRD) Non-Af 48 L, BUN/Creatinine Ratio 11.9, Glucose 155 H, Calcium 8.4 L 10/18/23 11:24: POC Glucose 166 H Microbiology: Microbiology 10/16/23 02:39 Urine, Clean Catch Urine Culture - Final Proteus mirabilis 10/15/23 00:27 Blood Culture (Wb) - Anticubital Left Blood Culture - Preliminary No growth in 48 hours. 10/15/23 00:20 Blood Culture (Wb) - Anticubital Right Blood Culture - Preliminary No growth in 48 hours. 10/15/23 00:18 Mucosa - Nose SARS-CoV-2, Influenza & RSV (PCR) - Final D/C Instructions Discharge Diet: Low fat / Low cholesterol and Carb Control Diet Call your doctor if you observe: Fever of 101 or Higher, Shortness of breath, Dizziness, Fainting spells, Swelling in the ankles, Chest pain and Increased palpitations (irregular heartbeat) Meaningful Use Info Meaningful Use Meaningful Use Diagnoses (Choose all that apply): None applicable Ischemic Stroke Statin Dosing Therapy Reference: STATIN DOSE THERAPY REFERENCE: * Patients > 75 years receive moderate or high dose statin therapy. * Patients 75 years or YOUNGER should receive HIGH intensity statin dose unless contraindicated. You will be required to document reason for non-treatment if statin daily dose does not meet guidelines. HIGH DOSE STATIN THERAPY DAILY Atorvastatin > than or = to 40 mg Rosuvastatin > than or = to 20 mg Amlodipine + Atorvastatin > than or = to 2.5/40 mg Ezetimibe + Simvastatin 10/80 mg Simvastatin 80mg Discharge Plan Admission Admit Date/Time: 10/15/23 03:43 Attending Provider: Jamey Rome Primary Care Provider: Scotty Spaulding Consulting Providers: Brina Neves; Jeronimo Fuentes Instructions Additional Instructions / Restrictions: Follow-up with your PCP in 3 to 5 days to monitor your renal function. Discharge Orders/Prescriptions Prescriptions: New ciprofloxacin HCl 500 mg tablet 500 mg PO BID Qty: 10 0RF furosemide [Lasix] 40 mg tablet 40 mg PO DAILY Qty: 7 0RF Continued potassium chloride [Klor-Con M20] 20 MEQ tablet 40 meq PO BID Patient Comments: potassium supplement cholecalciferol (vitamin D3) [Vitamin D3] 1,000 UNIT tablet 2,000 unit PO DAILY Patient Comments: supplement amlodipine 10 MG tablet 10 mg PO DAILY oxycodone-acetaminophen 1 TABLET tablet 1 tab PO BID PRN (Reason: pain) Patient Comments: pain medication pantoprazole 40 MG tablet 40 mg PO DAILY hydrochlorothiazide 25 MG tablet 25 mg PO DAILY metformin 500 MG tablet 500 mg PO DAILY hydrochlorothiazide 25 mg tablet 25 mg PO DAILY Qty: 20 0RF meloxicam 15 mg tablet 15 mg PO DAILY Patient Comments: TAKE 1 TABLET BY MOUTH EVERY DAY gabapentin 600 mg tablet 600 mg PO TID atorvastatin 20 mg tablet 20 mg PO QHS amitriptyline 10 mg tablet 10 mg PO QHS solifenacin 5 mg tablet 5 mg PO DAILY Ocutabs Tablet 2 tab PO DAILY Referrals / Follow Up: Scotty Spaulding MD [Primary Care Provider] - Within 1 Week Disposition Disposition (needs filled in before D/C Order can be placed): Home, Self Care Charges/Coding Visit Charges Inpatient E&M: 46817 Disch Hosp >30min
== END 2023-10-18 15:51 | disposition home or self-care (01) | DRG 690 ==
LOC: ED 10-15 04:44 → PCU 10-15 04:57
PROVIDERS: Admitting Provider Family Medicine; Emergency Provider Emergency Medicine; PCP Family Medicine; Visit Provider Family Medicine
DX: N12 Tubulo-interstitial nephritis, not specified as acute or chronic (principal); E87.20 Acidosis, unspecified; Z68.42 Body mass index [BMI] 45.0-49.9, adult; N17.9 Acute kidney failure, unspecified; E11.22 Type 2 diabetes mellitus with diabetic chronic kidney disease; E11.40 Type 2 diabetes mellitus with diabetic neuropathy, unspecified; B96.4 Proteus (mirabilis) (morganii) as the cause of diseases classified elsewhere; N18.30 Chronic kidney disease, stage 3 unspecified; E66.01 Morbid (severe) obesity due to excess calories; Z79.4 Long term (current) use of insulin; I12.9 Hypertensive chronic kidney disease with stage 1 through stage 4 chronic kidney disease, or unspecified chronic kidney disease; K76.0 Fatty (change of) liver, not elsewhere classified; K21.9 Gastro-esophageal reflux disease without esophagitis; E78.5 Hyperlipidemia, unspecified; K80.20 Calculus of gallbladder without cholecystitis without obstruction; Z87.891 Personal history of nicotine dependence; Z79.84 Long term (current) use of oral hypoglycemic drugs; Z80.0 Family history of malignant neoplasm of digestive organs
CPT/HCPCS: 36415; 71045; 74176; 76705; 80048; 80053; 80076; 81001; 82962; 83605; 83690; 85025; 85610; 85730; 87040; 87077; 87086; 87088; 87186; 87631; 93005; 93306; 97162; 97166; 97530; 97535; 97802; 99285; J7030; P9612; Q9957; A4216; C8929; J1940; J2405